=== PATIENT | male | born 1990 | race Caucasian/White ===

== ENCOUNTER 2017-08-23 17:33 | Emergency (ER) | payer OTHER, MEDICAID, SELFPAY ==
[2017-08-23 17:34] VITALS: BP 130/71; PULSE 83; RESP 14; TEMP 36.7; O2SAT 97; BMI 20.6
--- NOTE | 2017-08-23 19:07 | ED.VISSUMM ---
- ER Visit Summary Date of Service: 08/23/17 Chief Complaint: Pain and swelling right index finger secondary to injury that occurred on August 17 at work History of Present Illness: The patient is a 27 M is right-handed. Presents with injury to the right index finger. This occurred at work. On the radial side over the middle phalanx. He complains of pain. He denies paresthesia, anesthesia or motor weakness. He denies fever, chills night sweats. He denies decreased range of motion. Physical Examination: Vital signs are remarkable elevated blood pressure 130/71. Patient has small subcutaneous abscess over the middle phalanx radial side of the right index finger. There is no lymphangitis. There is no cellulitis. There is no epitrochlear lymphadenopathy. There is no pain to palpation the extensor indices tendon. Test Results: None Emergency Department Course and Treatment: Patient was informed he needs an incision and drainage of the abscess. The digit was anesthetized 1% lidocaine by digital block. The area was cleansed. An incision was made with a 15 blade. Small purulent material was expressed. Blunt dissection was undertaken and cavity was irrigated. Treatment Plan: This is a small simple obtains abscess and patient is an immune suppressed or diabetic and there is no's cellulitis antibiotics are not indicated per the literature Disposition: Follow-up in 2 days at [facility] Impression: Subcutaneous abscess right index finger secondary to laceration This note was generated with [employer] dictation software. It may contain incorrect words, spelling, and punctuation that were not noted in review of the chart prior to signing ED Disposition - Plan for ED Patient: Disposition: Home or Assisted Living Chief Complaint: Wound Instructions: ED Abscess IandD Referrals: Care Physician,No Primary [Primary Care Provider] - [facility] [GROUP OF PHYSICIANS] - 2 Days for wound check
--- NOTE | 2017-08-23 19:10 | ED.DCSUM_ITS ---
- ER Visit Summary Date of Service: 08/23/17 Chief Complaint: Pain and swelling right index finger secondary to injury that occurred on August 17 at work History of Present Illness: The patient is a 27 M is right-handed. Presents with injury to the right index finger. This occurred at work. On the radial side over the middle phalanx. He complains of pain. He denies paresthesia, anesthesia or motor weakness. He denies fever, chills night sweats. He denies decreased range of motion. Physical Examination: Vital signs are remarkable elevated blood pressure 130/ 71. Patient has small subcutaneous abscess over the middle phalanx radial side of the right index finger. There is no lymphangitis. There is no cellulitis. There is no epitrochlear lymphadenopathy. There is no pain to palpation the extensor indices tendon. Test Results: None Emergency Department Course and Treatment: Patient was informed he needs an incision and drainage of the abscess. The digit was anesthetized 1% lidocaine by digital block. The area was cleansed. An incision was made with a 15 blade. Small purulent material was expressed. Blunt dissection was undertaken and cavity was irrigated. Treatment Plan: This is a small simple obtains abscess and patient is an immune suppressed or diabetic and there is no's cellulitis antibiotics are not indicated per the literature Disposition: Follow-up in 2 days at [facility] Impression: Subcutaneous abscess right index finger secondary to laceration This note was generated with [employer] dictation software. It may contain incorrect words, spelling, and punctuation that were not noted in review of the chart prior to signing ED Disposition - Plan for ED Patient: Disposition: Home or Assisted Living Chief Complaint: Wound Instructions: ED Abscess IandD Referrals: Care Physician,No Primary [Primary Care Provider] - [facility], [place] [GROUP OF PHYSICIANS] - 2 Days for wound check
[2017-08-23 19:37] VITALS: RESP 16
== END 2017-08-23 19:38 | disposition home or self-care (01) ==
PROVIDERS: Emergency Provider Emergency Medicine
DX: L02.511 Cutaneous abscess of right hand (principal); S61.210A Laceration without foreign body of right index finger without damage to nail, initial encounter; X58.XXXA Exposure to other specified factors, initial encounter; Y93.9 Activity, unspecified; Y92.9 Unspecified place or not applicable; Y99.0 Civilian activity done for income or pay; Z72.0 Tobacco use
CPT/HCPCS: 26010; 99283

== ENCOUNTER 2017-08-28 23:28 | Observation (INO) | payer MEDICAID, SELFPAY ==
[2017-08-28 23:29] VITALS: BP 134/81; PULSE 81; RESP 14; TEMP 36.6; O2SAT 98; BMI 21.5
--- NOTE | 2017-08-28 23:40 | RAD_ITS ---
STUDY: X-RAY - RIGHT HAND, ATTENTION SECOND FINGER REASON FOR EXAM: Male, 27 years old. Pain TECHNIQUE: 3 view(s) of the finger were obtained. COMPARISON: None. FINDINGS: Normal metacarpal head. Normal metacarpophalangeal joint. Normal proximal phalanx. Normal middle phalanx. Normal distal phalanx. Normal proximal interphalangeal joint. Normal distal interphalangeal joint. There is soft tissue swelling of the second digit. RAD/Finger(s) Min 2 Views IMPRESSION: There is NO acute bony abnormality. There is soft tissue swelling of the second digit. Electronically Signed: Rusty Dominguez MD at 0:50 EDT , Service support ,
[2017-08-28] MEDS: Ondansetron 4 MG/2 ML Vial IV (23:58)
[2017-08-29] VITALS (12 sets, daily range): BP systolic 98–124; BP diastolic 53–77; PULSE 46–63; RESP 15–18; TEMP 36.3–37.1; O2SAT 93–99; BMI 20.1
[2017-08-29 00:07] LABS: Absolute Lymphocyte Count 3.66 X10^3/ul (0.83-4.51); Absolute Neutrophil Count 3.5 X10^3/uL (2.0-7.7); Basophil# 0.08 X10^3/uL; Eosinophil# 0.22 X10^3/uL; Eosinophils% 2.7 % (0-5); Hematocrit 42.6 % (40-54); Hemoglobin 14.7 g/dl (13.0-16.5); Lymphocyte # 3.66 X10^3/ul (4.0); Mean Corp Hgb Conc 34.5 g/gl (32-36); Mean Corpuscular Hgb 31.7 pg (27.0-32.0); Mean Platelet Vol. 9.1 fl (6.2-12.0); Monocyte# 0.62 X10^3/uL; Monocyte% 7.6 % (0-10); Neutrophil # 3.54 X10^3/uL (2.7-7.7); Neutrophil % 43.6 % (47-70); POSITIVE COUNT NO; POSITIVE DIFFERENTIAL NO; POSITIVE MORPHOLOGY NO; Platelet Count 293 K/mm3 (150-450); RBC Distribution Width CV 12.3 % (11.6-14.6); RBC Distribution Width SD 40.7 fl (35.1-43.9); Red Blood Count 4.63 M/mm3 (4.6-6.2); White Blood Count 8.1 K/mm3 (4.4-11.0)
[2017-08-29 00:16] LABS: Anion Gap 5 (5-15); BUN 10 mg/dL (7-18); BUN/Creat Ratio 11.4 RATIO (10-20); Calcium,Total 8.7 mg/dL (8.5-10.1); Chloride 103 mmol/L (98-107); Creatinine, Serum 0.87 mg/dL (0.70-1.30); EST Glomerular Filtration Rate 110 mL/min (>60); Est Glom Filt Rate - Afr Amer 132 mL/min (>60); Estimated Creatinine Clearance 138.57 ml/min; Glucose 98 mg/dL (74-106); Potassium 3.8 mmol/L (3.5-5.1); Sodium Level 140 mmol/L (136-145)
--- NOTE | 2017-08-29 00:18 | ED.VISSUMM ---
- ER Visit Summary Date of Service: 08/29/17 Chief Complaint: Redness and swelling to right index finger] History of Present Illness: The patient is a 27 M [presents to the emergency department with complaint of redness and swelling to his right index finger at that has been present for over a week. Patient states that he was seen in the emergency department about 5 or 6 days ago and had an incision and drainage of an abscess to the finger. Patient states that initially he hurt his finger while at work he brushed it against a metal edge lacerating it. The wound subsequently got infected. Patient states that after his incision and drainage in the emergency department he was not started on antibiotics however he was told [facility]. Patient followed up several days later and was started on doxycycline for suspected worsening infection. Patient is scheduled to follow-up with water rights specialist in 5 days. Patient has pain with range of motion.] Physical Examination: [Right index finger-patient has soft tissue swelling over the dorsum of the middle phalanx. He has pain with flexion extension at the PIP and DIP. Patient has tenderness over the extensor tendon. Neurovascular intact distally.] No obvious fluctuance noted over the wound. Test Results: [X-rays of the right index finger interpreted by myself as no acute fractures and no foreign bodies noted. No evidence for osteomyelitis.] CBC with differential obtained showed a normal white blood cell count. Chemistries were unremarkable. Emergency Department Course and Treatment: [Patient was started on clindamycin IV.] Treatment Plan: [Admit for IV antibiotics and evaluation by orthopedics.] Disposition: [Admit] Impression: [Right index finger abscess/cellulitis-failed outpatient therapy] This note was generated with [employer] dictation software. It may contain incorrect words, spelling, and punctuation that were not noted in review of the chart prior to signing ED Disposition - Plan for ED Patient: Chief Complaint: Abscess Referrals: Care Physician,No Primary [Primary Care Provider] -
--- NOTE | 2017-08-29 00:21 | ED.DCSUM_ITS ---
- ER Visit Summary Date of Service: 08/29/17 Chief Complaint: Redness and swelling to right index finger] History of Present Illness: The patient is a 27 M [presents to the emergency department with complaint of redness and swelling to his right index finger at that has been present for over a week. Patient states that he was seen in the emergency department about 5 or 6 days ago and had an incision and drainage of an abscess to the finger. Patient states that initially he hurt his finger while at work he brushed it against a metal edge lacerating it. The wound subsequently got infected. Patient states that after his incision and drainage in the emergency department he was not started on antibiotics however he was told [facility]. Patient followed up several days later and was started on doxycycline for suspected worsening infection. Patient is scheduled to follow-up with construction specialist in 5 days. Patient has pain with range of motion.] Physical Examination: [Right index finger-patient has soft tissue swelling over the dorsum of the middle phalanx. He has pain with flexion extension at the PIP and DIP. Patient has tenderness over the extensor tendon. Neurovascular intact distally.] No obvious fluctuance noted over the wound. Test Results: [X-rays of the right index finger interpreted by myself as no acute fractures and no foreign bodies noted. No evidence for osteomyelitis.] CBC with differential obtained showed a normal white blood cell count. Chemistries were unremarkable. Emergency Department Course and Treatment: [Patient was started on clindamycin IV.] Treatment Plan: [Admit for IV antibiotics and evaluation by orthopedics.] Disposition: [Admit] Impression: [Right index finger abscess/cellulitis-failed outpatient therapy] This note was generated with [employer] dictation software. It may contain incorrect words, spelling, and punctuation that were not noted in review of the chart prior to signing ED Disposition - Plan for ED Patient: Chief Complaint: Abscess Referrals: Care Physician,No Primary [Primary Care Provider] -
[2017-08-29] MEDS: Ketorolac 30 MG/ML Syringe IV ×4 (01:12→21:34)
[2017-08-29] MEDS: HYDROmorphone 1 MG/ML Syringe IV ×7 (01:12→23:51)
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
[2017-08-29] MEDS: 0.9% NaCl Peripheral Flush Adult/Peds IV ×6 (02:58→21:34)
[2017-08-29] MEDS: 0.9% Normal Saline 1,000 ML 125 ML IV ×4 (05:13→21:37)
--- NOTE | 2017-08-29 06:05 | NURSING ---
PAGED DR ZUNIGA THIS AM TO INFORM HIM OF A CONSULT FOR HIM FOR THIS PATIENT
[2017-08-29 06:49] LABS: Absolute Lymphocyte Count 3.43 X10^3/ul (0.83-4.51); Absolute Neutrophil Count 2.6 X10^3/uL (2.0-7.7); Basophil# 0.06 X10^3/uL; Basophil% 0.9 % (0-1); Eosinophil# 0.25 X10^3/uL; Eosinophils% 3.6 % (0-5); Hematocrit 41.1 % (40-54); Hemoglobin 13.7 g/dl (13.0-16.5); Lymphocyte # 3.43 X10^3/ul (4.0); Lymphocyte % 49.4 % (19-41); Mean Corp Hgb Conc 33.3 g/gl (32-36); Mean Corpuscular Hgb 30.9 pg (27.0-32.0); Mean Corpuscular Volume 92.8 fL (80-94); Mean Platelet Vol. 9.3 fl (6.2-12.0); Monocyte# 0.59 X10^3/uL; Monocyte% 8.5 % (0-10); Neutrophil # 2.61 X10^3/uL (2.7-7.7); Neutrophil % 37.5 % (47-70); POSITIVE COUNT NO; POSITIVE DIFFERENTIAL NO; POSITIVE MORPHOLOGY NO; Platelet Count 239 K/mm3 (150-450); RBC Distribution Width CV 12.4 % (11.6-14.6); RBC Distribution Width SD 41.3 fl (35.1-43.9); Red Blood Count 4.43 M/mm3 (4.6-6.2)
[2017-08-29 07:10] LABS: Anion Gap 5 (5-15); BUN 11 mg/dL (7-18); Calcium,Total 8.2 mg/dL (8.5-10.1); Chloride 103 mmol/L (98-107); Creatinine, Serum 0.73 mg/dL (0.70-1.30); EST Glomerular Filtration Rate 134 mL/min (>60); Est Glom Filt Rate - Afr Amer 162 mL/min (>60); Estimated Creatinine Clearance 158.18 ml/min; Glucose 93 mg/dL (74-106); Potassium 4.2 mmol/L (3.5-5.1); Sodium Level 138 mmol/L (136-145)
--- NOTE | 2017-08-29 09:09 | CASEMGMT ---
See RN CM Assessment Link. DC Plan home. If IV antibiotics are needed, CM to assist with dc planning. Pt given list of PCP's that take [facility] insurance. Referral made for f/u @ [facility], [place] , for f/u on last ER visit. Pt can f/u here or with Dr. Dewitt if he orders appt on dc. Anny CLARKN RN ACM
--- NOTE | 2017-08-29 10:54 | PCM.CONS.B ---
- Consult Date of Consult: 08/29/17 - Reason for Consult 27-year-old [id number] male with a zone to dorsal abscess formation over the extensor mechanism. Patient had brushed against the finger about a week ago and apparently had undergone a I&D in the emergency room without application of any antibiotics. Patient showed up to the now clinic was started on doxycycline. Patient wound dehiscence closed and he had continued pain and came to the emergency room. They have subsequently started him either on the suprasellar vancomycin this time. Patient was made n.p.o. at midnight for possible I&D. Patient is in no acute distress at this point time. He points over to the right index finger and the dorsum of the hand. Patient is a history of hepatitis C. Objective: Patient is otherwise alert and oriented ?3 in no acute distress. Appropriate eye contact and affect. Intact in the seat from the C5-T2 distributions bilaterally has +2 pulses. He has heart regular S1-S2 lungs clear ulceration bilaterally abdomen soft nontender nondistended no gross paraspinal megaly. His left hand shows no adenopathy full range of motion no signs of any infection about the dorsal or volar aspects of the hand. His right upper extremity again shows no streaking erythema he has no axillary adenopathy. Patient has negative can able signs across the flexor aspect of the finger. He has some localized erythema and probable abscess formation over the dorsal zone 2 of the index finger. Patient is able to gently flex and extend however across the PIPJ and DIPJ. Extensor mechanism still intact. Lab values reviewed. Patient has no white count. He has no signs of the left hip. No signs of any fevers. X-rays: Evaluated-no loose bodies. No gas. No signs of fracture. Assessment: Right index finger zone 2 dorsal abscess. Plan: This point time patient was counseled consented for right finger incision and drainage. At that point time will perform deep cultures of the tissue. It would impact accordingly and will start wound care. Patient will continue on his current antibiotics as an empiric coverage. Hopefully will gain some bacterial identification over time. However with his multiple antibiotics it may be unlikely. Patient understands risks and benefits to include damage to nerves muscles arteries veins of DVT PE infection continued pain for repeat incision and drainage. This point time patient elects to proceed with intervention. We will go and get him counseled and consented and set up for intervention as soon as possible. Any major issues please contact me.
--- NOTE | 2017-08-29 11:35 | PCM.RX.CS ---
Consult Pharmacy has been consulted to manage selected antiobiotic: Vancomycin Type of Consult: New start Suspected Infection: Skin/Soft tissue Prior Doses of Antibiotics Received/Current Regimen: Medications Vancomycin HCl 1,750 mg/ (Sodium Chloride) 535 mls @ 260 mls/hr IV X1 ONE Stop: 08/29/17 04:48 Last Admin: 08/29/17 02:54 Dose: 260 mls/hr Labs: Sodium 138 mmol/L (136-145) 08/29/17 06:15 Potassium 4.2 mmol/L (3.5-5.1) 08/29/17 06:15 Chloride 103 mmol/L (98-107) 08/29/17 06:15 Carbon Dioxide 30.0 mmol/L (21.0-32.0) 08/29/17 06:15 Anion Gap 5 (5-15) 08/29/17 06:15 BUN 11 mg/dL (7-18) 08/29/17 06:15 Creatinine 0.73 mg/dL (0.70-1.30) 08/29/17 06:15 Est GFR (MDRD) Af Amer 162 mL/min (>60) 08/29/17 06:15 Est GFR (MDRD) Non-Af 134 mL/min (>60) 08/29/17 06:15 BUN/Creatinine Ratio 15.0 RATIO (10-20) 08/29/17 06:15 Glucose 93 mg/dL (74-106) 08/29/17 06:15 Weight used for dosin kg Estimated Creatinine Clearance: >100 mL/mn Goal Trough: 10-15 mcg/mL Pharmacy Plan for Drug Dosing: Patient initially received vancomycin 1750mg IV x1, recommend to continue 1000mg IV q8h. Trough Thursday afternoon. Pharmacy Service will continue to monitor and adjust dosing as required. Follow-Up Labs: Trough Vancomycin Labs to be done on [date and time ordered]: 08/30/17 @ 1400
--- NOTE | 2017-08-29 11:54 | NURSING ---
REPORT CALLED TO TRISH IN OR. PT OFF UNIT VIA BED FOR SURGERY
--- NOTE | 2017-08-29 12:00 | PCM.IMDPSTOP ---
Immediate Post-Op Note Date of Procedure: 08/29/17 Primary Surgeon/Physician: Emre Dewitt DO trapeze performer: none Pre-Operative Diagnosis: right index finger abscess Post-Operative Diagnosis: same as above Surgery/Procedure Performed:: right index finger incision and drainage--deep to fascia Description of Surgical Findings:: see dictation Estimated Blood Loss: 5 Specimen's removed: cultures ASA Class: ASA1 Normal Healthy Patient - Admit VTE Documentation VTE Present on Admission: No VTE Mechan Device Prophylaxis: SCD's, Knee High ALISHA Hose VTE Pharm Prophylaxis ordered?: No
--- NOTE | 2017-08-29 12:03 | OP.PCM_ITS ---
Report of Operation Date of Procedure: 08/29/17 Pre-Operative Diagnosis: right index finger abscess Post-Operative Diagnosis: same as above Surgery/Procedure Performed:: right index finger incision and drainage--deep to fascia Description of Surgical Findings:: 27-year-old male with right index finger zone 2 dorsal abscess. Patient had previous undergone a small incision and drainage in the emergency room and subsequently went to the critical access hospital where he was placed on antibiotics. The patient continued abscess formation. Subsequent return to the emergency room yesterday admitted by the hospitalist team. I was consulted for the wound. Discussed with the patient my recommendation was for an incision and drainage and packing of the wound and deep cultures which not had been performed at this time. Patient was subsequently consented for the aforementioned procedure. He is met in the holding area where the right upper extremity was marked and identified by the orthopedic surgeon. Patient was taken the operating room in satisfactory condition with somewhat to place to identify patient up procedure and limb. Patient had received preoperative vancomycin and to penicillin. He was subsequent prepped and draped in the usual fashion. Patient received light conscious sedation and then underwent a standard digital block using combination of Marcaine and lidocaine solution mixed without epinephrine. Patient reached appropriate anesthesia to the finger and subsequent had a longitudinal incision made over the previous incision site. Grossly upon entry the patient had a large return of purulent discharge. Deep cultures were taken to include Gram stain aerobic and anaerobic cultures. That will be sent down accordingly. At that point time using blunt dissection the purulence was removed all the way down to the fascia of the extensor mechanism. It was not disrupted. At that point time the wound was gently curetted along the extensor mechanism fascia and gently across the subcu tissue being cognizant not to take down too much fat to expect blood supply. At that point time he was copious irrigated with 250 cc of normal saline solution. I then packed the wound with a small amount of 1/4 inch povidone iodine packing gauze. He was then dressed with a compressive wrap gently. He was then returned to recovery room in satisfactory condition. We had no drains or complications. Implants only included the packing gauze. We did take deep cultures. Patient be admitted back to the floor for 24 hours of IV antibiotics and conversion to an oral medication. I think the patient could be discharged home tomorrow. Any major issues please contact me. I will start warm water soaks with the patient tomorrow and the patient will follow-up with me either on Thursday or of next week for a wound check. Any issues please contact me. gamewell operator: none Specimen's removed: cultures Estimated Blood Loss (mL): 5 Grafts/Implants Used: none - Complications none - Admit VTE Documentation VTE Present on Admission: No VTE Mechan Device Prophylaxis: SCD's, Knee High ALISHA Hose VTE Pharm Prophylaxis ordered?: No
[2017-08-29] MEDS: Bupivacaine Mpf 0.5% 30 ML VIAL (12:15)
--- NOTE | 2017-08-29 13:39 | PCA ---
pt off floor
--- NOTE | 2017-08-29 14:08 | PCM.PROGNOTE ---
Patient Problems: Active and Suspected Problems (Last Updated 08/24/17 @ 15:00 by Marisa Beckford) Cellulitis of right index finger (Acute) Subjective: Patient is a 27-year-old male with a past medical history of hepatitis C, nicotine dependence and recent cellulitis of his right index finger who presented to the Ed at [facility] on 08/29 c/o swelling, increased pain, redness despite I&D performed 1 week ago and Doxycycline. Vital signs at presentation to the emergency room were temperature 97.9, pulse rate 81, blood pressure 134/81, respiratory rate 14 and he was 98% saturated on room air. White blood cell count was normal at 8.1 and the differential is unremarkable. Plain x-ray of the right index finger shows swelling of the middle phalanx of the right index finger. He was admitted to the hospital and started on intravenous vancomycin. Consult was ordered with Dr. Emre Dewitt. He was taken to the OR and had a digital block for anesthesia. Grossly upon entry into the wound there was a large return of purulent discharge. Deep cultures were taken and sent for Gram stain, aerobic and anaerobic cultures. Dissection was carried out down to the fascia of the extensor mechanism. The wound was irrigated with copious amounts of normal saline solution. Wound was packed open with a small amount of povidone iodine packing gauze. Were no drains placed. Dr. Dewitt feels the patient can likely be discharged home in [address] Dewitt will follow up with him in the office next week. Afebrile since admission. Vital signs are stable. - Physical Exam General: Alert, Oriented x3, Cooperative, No apparent distress HEENT: PERRLA Oral: Moist Mucosa, No Gingival or Mucosal Lesions/ Ulcerations Lungs: Clear to auscultation Cardiovascular: Regular rate, Regular Rhythm, No murmurs, No Gallop Abdomen: Bowel Sounds Present, Soft, Non Tender, Non-Distended Extremities: No edema, - - The R index finger is bandaged.....no redness or swelling above the wrist. Skin: No rashes, No breakdown, Ulcer/ Wound - R index finger, S/P I&D today......will not disrupt the bandage Neurological: Cranial nerves II-XII grossly intact, Neuro grossly intact Psych/Mental Status: Normal Affect, Appropriate Vital Signs Temp Pulse Resp BP Pulse Ox 97.5 F L 63 16 98/53 L 99 08/29/17 13:54 08/29/17 13:54 08/29/17 13:54 08/29/17 13:54 08/29/17 13:54 Oxygen Delivery Method Room Air Weight: 165 lb 2.02 oz Body Mass Index (BMI) 20.0 Intake and Output for Last 24 Hours 08/27/17 08/28/17 08/29/17 23:59 23:59 23:59 Intake Total 1147 / 1147 Balance 1147 / 1147 Laboratory Tests Past 24 Hrs 08/29/17 08/29/17 06:15 06:15 WBC 7.0 RBC 4.43 L Hgb 13.7 Hct 41.1 MCV 92.8 MCH 30.9 MCHC 33.3 RDW 12.4 RDW Differential 41.3 Plt Count 239 MPV 9.3 Immature Gran % (Auto) 0.100 Neut % (Auto) 37.5 L Lymph % (Auto) 49.4 H [place] % (Auto) 8.5 Eos % (Auto) 3.6 Baso % (Auto) 0.9 Absolute Neuts (auto) 2.6 Absolute Lymphs (auto) 3.43 Total Counted Not Reportable Sodium 138 Potassium 4.2 Chloride 103 Carbon Dioxide 30.0 Anion Gap 5 BUN 11 Creatinine 0.73 Estim Creat Clear Calc 158.18 Est GFR (MDRD) Af Amer 162 Est GFR (MDRD) Non-Af 134 BUN/Creatinine Ratio 15.0 Glucose 93 Calcium 8.2 L Medical Necessity - Tobacco Use Smoking Status: Current every day smoker Tobacco Use: Cigarettes Assessment/Plan Active and Suspected Problems (Last Updated 08/24/17 @ 15:00 by Marisa Beckford) Cellulitis of right index finger (Acute) Impressions 1. cellulitis and abscess R index finger - S/P I&D by Dr. Dewitt. No PCR done on the DC. Was on Doxycycline prior to admission without improvement 2. hx of hep C. Probable DC tomorrow Will follow up with Dr. Dewitt Thursday GM stain with GM + cocci
--- NOTE | 2017-08-29 14:23 | PN_ITS ---
Patient Problems: Active and Suspected Problems (Last Updated 08/24/17 @ 15:00 by Marisa Beckford) Cellulitis of right index finger (Acute) Subjective: Patient is a 27-year-old male with a past medical history of hepatitis C, nicotine dependence and recent cellulitis of his right index finger who presented to the Ed at [facility] on 08/29 c/o swelling, increased pain, redness despite I&D performed 1 week ago and Doxycycline. Vital signs at presentation to the emergency room were temperature 97.9, pulse rate 81, blood pressure 134/ 81, respiratory rate 14 and he was 98% saturated on room air. White blood cell count was normal at 8.1 and the differential is unremarkable. Plain x-ray of the right index finger shows swelling of the middle phalanx of the right index finger. He was admitted to the hospital and started on intravenous vancomycin. Consult was ordered with Dr. Emre Dewitt. He was taken to the OR and had a digital block for anesthesia. Grossly upon entry into the wound there was a large return of purulent discharge. Deep cultures were taken and sent for Gram stain, aerobic and anaerobic cultures. Dissection was carried out down to the fascia of the extensor mechanism. The wound was irrigated with copious amounts of normal saline solution. Wound was packed open with a small amount of povidone iodine packing gauze. Were no drains placed. Dr. Dewitt feels the patient can likely be discharged home in [address] Dewitt will follow up with him in the office next week. Afebrile since admission. Vital signs are stable. - Physical Exam General: Alert, Oriented x3, Cooperative, No apparent distress HEENT: PERRLA Oral: Moist Mucosa, No Gingival or Mucosal Lesions/ Ulcerations Lungs: Clear to auscultation Cardiovascular: Regular rate, Regular Rhythm, No murmurs, No Gallop Abdomen: Bowel Sounds Present, Soft, Non Tender, Non-Distended Extremities: No edema, - - The R index finger is bandaged.....no redness or swelling above the wrist. Skin: No rashes, No breakdown, Ulcer/ Wound - R index finger, S/P I&D today......will not disrupt the bandage Neurological: Cranial nerves II-XII grossly intact, Neuro grossly intact Psych/Mental Status: Normal Affect, Appropriate Vital Signs Temp Pulse Resp BP Pulse Ox 97.5 F L 63 16 98/53 L 99 08/29/17 13:54 08/29/17 13:54 08/29/17 13:54 08/29/17 13:54 08/29/17 13:54 Oxygen Delivery Method Room Air Weight: 165 lb 2.02 oz Body Mass Index (BMI) 20.0 Intake and Output for Last 24 Hours 08/27/17 08/28/17 08/29/17 23:59 23:59 23:59 Intake Total 1147 / 1147 Balance 1147 / 1147 Laboratory Tests Past 24 Hrs 08/29/17 08/29/17 06:15 06:15 WBC 7.0 RBC 4.43 L Hgb 13.7 Hct 41.1 MCV 92.8 MCH 30.9 MCHC 33.3 RDW 12.4 RDW Differential 41.3 Plt Count 239 MPV 9.3 Immature Gran % (Auto) 0.100 Neut % (Auto) 37.5 L Lymph % (Auto) 49.4 H [place] % (Auto) 8.5 Eos % (Auto) 3.6 Baso % (Auto) 0.9 Absolute Neuts (auto) 2.6 Absolute Lymphs (auto) 3.43 Total Counted Not Reportable Sodium 138 Potassium 4.2 Chloride 103 Carbon Dioxide 30.0 Anion Gap 5 BUN 11 Creatinine 0.73 Estim Creat Clear Calc 158.18 Est GFR (MDRD) Af Amer 162 Est GFR (MDRD) Non-Af 134 BUN/Creatinine Ratio 15.0 Glucose 93 Calcium 8.2 L Medical Necessity - Tobacco Use Smoking Status: Current every day smoker Tobacco Use: Cigarettes Assessment/Plan Active and Suspected Problems (Last Updated 08/24/17 @ 15:00 by Marisa Beckford) Cellulitis of right index finger (Acute) Impressions 1. cellulitis and abscess R index finger - S/P I&D by Dr. Dewitt. No PCR done on the DC. Was on Doxycycline prior to admission without improvement 2. hx of hep C. Probable DC tomorrow Will follow up with Dr. Dewitt Thursday GM stain with GM + cocci
[2017-08-29] MEDS: HYDROcodone Bitartrate/Apap 5/325 Tablet PO ×2 (15:13→21:33)
[2017-08-29] MEDS: Famotidine 20 MG Tablet PO (21:36)
[2017-08-29] MEDS: Ondansetron 4 MG/2 ML Vial IV (23:51)
[2017-08-30] MEDS: HYDROmorphone 1 MG/ML Syringe IV ×3 (03:30→09:34)
[2017-08-30] MEDS: HYDROcodone Bitartrate/Apap 5/325 Tablet PO ×2 (03:33→10:24)
[2017-08-30 03:36] VITALS: BP 109/62; PULSE 50; RESP 14; TEMP 36.6; O2SAT 97
[2017-08-30] MEDS: 0.9% Normal Saline 1,000 ML 125 ML IV (05:53)
[2017-08-30] MEDS: Magnesium Hydroxide 30 ML UDC PO (06:31)
[2017-08-30 07:47] VITALS: O2SAT 95
--- NOTE | 2017-08-30 08:22 | PCM.PN.ORT ---
Patient Problems: Active and Suspected Problems (Last Updated 08/24/17 @ 15:00 by Marisa Beckford) Cellulitis of right index finger (Acute) Subjective: Postop day 1 status post right index finger incision and drainage for abscess zone 2 dorsal. Patient doing well at this time. Finger is sore as expected. Patient's cultures did grow out some gram-positive cocci at this time. Patient is otherwise remained afebrile. Anticipate discharge home today with outpatient wound care as needed. Patient states that he was supposed to see a critical care clinical nurse specialist I am not really sure what that means. - Physical Exam General: Alert, Oriented x3, Cooperative, No apparent distress Musculoskeletal: - - Packing pulled serous drainage as expected. Extensor mechanism and flexor mechanism maintained. No expanding erythema. Wound cultures check. Lab values reviewed. Vital signs remained stable. Vital Signs Temp Pulse Resp BP Pulse Ox 97.8 F 50 L 14 109/62 95 08/30/17 03:36 08/30/17 03:36 08/30/17 03:36 08/30/17 03:36 08/30/17 07:47 Oxygen Delivery Method Room Air Weight: 165 lb 2.02 oz Body Mass Index (BMI) 20.0 Intake and Output for Last 24 Hours 08/28/17 08/29/17 08/30/17 23:59 23:59 23:59 Intake Total 1147 / 1147 2502 / 2502 Balance 1147 / 1147 2502 / 2502 Microbiology Past 72 Hours 08/29/17 12:41 Gram Stain - Final Wound Abcess - Aerobic & Anaerobic Swabs Medical Necessity - Tobacco Use Smoking Status: Current every day smoker Tobacco Use: Cigarettes Assessment/Plan Active and Suspected Problems (Last Updated 08/24/17 @ 15:00 by Marisa Beckford) Cellulitis of right index finger (Acute) Assessment: Right index finger abscess. Cultures pending. Plan: At this point time I will defer to the hospitalist team for recommended outpatient oral medication. Patient however can start warm water soaks today using either a 50-50 solution of water and hydrogen peroxide. Otherwise a small amount of dreft if available. Patient has been advised to start the gentle soaks and compression to push out any further fluid. The wound will heal by secondary intention. Replace packing very lightly simply act as a wick. Patient will follow with me on Wednesday for a wound check. Any issues please contact me.
--- NOTE | 2017-08-30 08:27 | PCM.DC.ORTHO ---
Discharge Activity: Return to Normal Activity, May Shower May shower in (days): 1 May resume sexual activity in: No Restrictions Additional Activity Instructions:: Activity as tolerated. Keep hand covered. Wash hands frequently if patient were developed MRSA. Call your doctor if your incision/area has: Continuous Slow Oozing, Sudden Increased Bleeding, Increased Pain/ Swelling, Increased Redness, Foul Smelling Discharge, Swelling at the incision site Call your doctor if you observe: Fever of 101 or Higher, Coldness, Increased Pain, Numbness or Tingling, Change in Color, Calf discomfort Change Dressing in (Days):: 1 Remove Dressing in (days):: 1 Cleanse incision/area with: Soap & Water Additional Dressing/Incision Instructions:: Warm water soaks twice daily. Patient is to milk the wound to remove any excess fluid. Replace packing ?2 days only. Packing material is only used as a wick. Do not over pack wound to prevent healing or pocket formation. Allergies/Adverse Reactions: Allergies codeine Allergy (Verified 08/28/17 23:29) Anaphylaxis Penicillins [PCN] Allergy (Verified 08/28/17 23:29) Hives tramadol Allergy (Verified 08/28/17 23:29) Hives Medications to take at Discharge doxycycline hyclate 100 mg capsule 100 mg PO BID 10 Days #20 cap 08/24/17 Primary Care Physician: Care Physician,No Primary [Primary Care Provider] - Please Follow Up With: Emre Dewitt DO When: call [facility] for appt for thursday Proposed Discharge Date: 08/30/17
[2017-08-30 08:49] VITALS: BP 125/65; PULSE 56; RESP 16; TEMP 36.1; O2SAT 98
[2017-08-30] MEDS: Famotidine 20 MG Tablet PO (09:36)
--- NOTE | 2017-08-30 09:53 | PCM.DC ---
- Discharge Diagnoses Current Active Problems: Current Active and Chronic Problems (Last Updated 08/24/17 @ 15:00 by Marisa Beckford) Cellulitis of right index finger (Acute) Tobacco use (Chronic) Hepatitis C (Chronic) You will use the following diet at home:: No restrictions Your food should be the consistency of: Regular Your liquids should be the consistency of: Regular/Thin Discharge Activity: Return to Normal Activity, May not drive while taking narcotic pain medications., May Shower May shower in (days): 1 May resume sexual activity in: No Restrictions Additional Activity Instructions:: Activity as tolerated. Keep hand covered. Wash hands frequently if patient were developed MRSA. Call your doctor if your incision/area has: Continuous Slow Oozing, Sudden Increased Bleeding, Increased Pain/ Swelling, Increased Redness, Foul Smelling Discharge, Swelling at the incision site Call your doctor if you observe: Fever of 101 or Higher, Coldness, Increased Pain, Numbness or Tingling, Change in Color, Calf discomfort Change Dressing in (Days):: 1 Remove Dressing in (days):: 1 Cleanse incision/area with: Soap & Water Additional Dressing/Incision Instructions:: Warm water soaks twice daily. Patient is to milk the wound to remove any excess fluid. Replace packing ?2 days only. Packing material is only used as a wick. Do not over pack wound to prevent healing or pocket formation. Allergies/Adverse Reactions: Allergies codeine Allergy (Verified 08/28/17 23:29) Anaphylaxis Penicillins [PCN] Allergy (Verified 08/28/17 23:29) Hives tramadol Allergy (Verified 08/28/17 23:29) Hives Medications to take at Discharge Hydrocodone/Acetaminophen [Vicodin Es 7.5-300 mg Tablet] 1 ea PO Q4H PRN PRN 7 Days #12 tab 08/30/17 Smz/Tmp Ds [Bactrim Ds] 2 tab PO BID #24 tab 08/30/17 The following prescriptions were given: Hydrocodone/Acetaminophen [Vicodin Es 7.5-300 mg Tablet] 1 ea PO Q4H PRN PRN 7 Days #12 tab PRN Reason: Pain Smz/Tmp Ds [Bactrim Ds] 2 tab PO BID #24 tab Primary Care Physician: Care Physician,No Primary [Primary Care Provider] - Please Follow Up With: Emre Dewitt DO When: call [facility] for appt for thursday Proposed Discharge Date: 08/30/17
--- NOTE | 2017-08-30 10:02 | PCM.DC.SUM ---
Discharge Date and Diagnosis - Problem List Patient Problems: Active and Suspected Problems (Last Updated 08/24/17 @ 15:00 by Marisa Beckford) Cellulitis of right index finger (Acute) Date of Admission: 08/29/17 Date of Discharge: 08/30/17 - Primary Discharge Diagnosis Active and Suspected Problems (Last Updated 08/24/17 @ 15:00 by Marisa Beckford) Cellulitis and abscess of right index finger (Acute) - Secondary Discharge Diagnosis Chronic Problems (Last Updated 08/24/17 @ 15:00 by Marisa Beckford) Tobacco dependence (Chronic) Hepatitis C (Chronic) Drug overdose (Chronic) Agitation (Chronic) Hospital Course and Treatment Imaging Results: Clinical Impression(s) from Imaging Studies Finger X-Ray 08/28/17 23:40 IMPRESSION: There is NO acute bony abnormality. There is soft tissue swelling of the second digit. Electronically Signed: Rusty Dominguez MD at 0:50 EDT , Service support , Laboratory Tests 08/28/17 08/28/17 08/29/17 23:51 23:51 06:15 WBC 8.1 7.0 RBC 4.63 4.43 L Hgb 14.7 13.7 Hct 42.6 41.1 MCV 92.0 92.8 MCH 31.7 30.9 MCHC 34.5 33.3 RDW 12.3 12.4 RDW Differential 40.7 41.3 Plt Count 293 239 MPV 9.1 9.3 Immature Gran % (Auto) 0.100 0.100 Neut % (Auto) 43.6 L 37.5 L Lymph % (Auto) 45.0 H 49.4 H [place] % (Auto) 7.6 8.5 Eos % (Auto) 2.7 3.6 Baso % (Auto) 1.0 0.9 Absolute Neuts (auto) 3.5 2.6 Absolute Lymphs (auto) 3.66 3.43 Total Counted Not Reportable Not Reportable Sodium 140 Potassium 3.8 Chloride 103 Carbon Dioxide 32.0 Anion Gap 5 BUN 10 Creatinine 0.87 Estim Creat Clear Calc 138.57 Est GFR (MDRD) Af Amer 132 Est GFR (MDRD) Non-Af 110 BUN/Creatinine Ratio 11.4 Glucose 98 Calcium 8.7 08/29/17 06:15 WBC RBC Hgb Hct MCV MCH MCHC RDW RDW Differential Plt Count MPV Immature Gran % (Auto) Neut % (Auto) Lymph % (Auto) [place] % (Auto) Eos % (Auto) Baso % (Auto) Absolute Neuts (auto) Absolute Lymphs (auto) Total Counted Sodium 138 Potassium 4.2 Chloride 103 Carbon Dioxide 30.0 Anion Gap 5 BUN 11 Creatinine 0.73 Estim Creat Clear Calc 158.18 Est GFR (MDRD) Af Amer 162 Est GFR (MDRD) Non-Af 134 BUN/Creatinine Ratio 15.0 Glucose 93 Calcium 8.2 L Microbiology 08/29/17 12:41 Wound Abcess - Aerobic & Anaerobic Swabs Gram Stain - Final Dr. Emre Dewitt[facility] orthopedics Operations: - - Right index finger incision and drainage-deep to fascia 08/29/[address] Emre Dewitt. Summary of Care Provided: Patient is a 27-year-old male with a past medical history of hepatitis C, nicotine dependence, drug OD and recent cellulitis of his right index finger who presented to the ED at [facility] on 08/29/17 c/o swelling, increased pain, redness despite I&D performed 08/23/17 in the ED and Doxycycline. Vital signs at presentation to the emergency room were temperature 97.9, pulse rate 81, blood pressure 134/81, respiratory rate 14 and he was 98% saturated on room air. White blood cell count was normal at 8.1 and the differential was unremarkable. Plain x-ray of the right index finger showed swelling of the middle phalanx of the right index finger. He was admitted to the hospital and started on intravenous vancomycin. Consult was ordered with Dr. Emre Dewitt. He was taken to the OR and had a digital block for anesthesia. Grossly upon entry into the wound there was a large return of purulent discharge. Deep cultures were taken and sent for Gram stain, aerobic and anaerobic cultures. Dissection was carried out down to the fascia of the extensor mechanism. The wound was irrigated with copious amounts of normal saline solution. It was packed open with a small amount of povidone iodine packing gauze. The GM stain of the DC from surgery had rare white blood cells and rare gram-positive cocci. PCR for SA was not sent. On 08/30 he was afebrile with stable VS. He was seen by Dr. Dewitt who changed the dressing and felt he was ready for DC. He was instructed on how to properly do the dressing changes for the next 2 days and he was given dressing supplies for the next 2 days. He will follow up with Dr. Dewitt in the office Thursday. He was discharged on Bactrim DS 2 tabs BID for 6 days. He was given a RX for Vicodin 7.5/300, #12, and instructed to take 1 PO every 4 hours as need for pain. He will elevate the RUE. This note was generated with [employer] dictation software. It may contain incorrect words, spelling, and punctuation that were not noted in checking the note before signing. Discharge Activity: Return to Normal Activity, May not drive while taking narcotic pain medications., May Shower May shower in (days): 1 May resume sexual activity in: No Restrictions Additional Activity Instructions:: Activity as tolerated. Keep hand covered. Wash hands frequently if patient were developed MRSA. Call your doctor if your incision/area has: Continuous Slow Oozing, Sudden Increased Bleeding, Increased Pain/ Swelling, Increased Redness, Foul Smelling Discharge, Swelling at the incision site Call your doctor if you observe: Fever of 101 or Higher, Coldness, Increased Pain, Numbness or Tingling, Change in Color, Calf discomfort Change Dressing in (Days):: 1 Remove Dressing in (days):: 1 Cleanse incision/area with: Soap & Water Additional Dressing/Incision Instructions:: Warm water soaks twice daily. Patient is to milk the wound to remove any excess fluid. Replace packing ?2 days only. Packing material is only used as a wick. Do not over pack wound to prevent healing or pocket formation. Home Medications: Medications to take at Discharge Hydrocodone/Acetaminophen [Vicodin Es 7.5-300 mg Tablet] 1 ea PO Q4H PRN PRN 7 Days #12 tab 08/30/17 Smz/Tmp Ds [Bactrim Ds] 2 tab PO BID #24 tab 08/30/17 Following Prescrptions Were Given to Patient: Hydrocodone/Acetaminophen [Vicodin Es 7.5-300 mg Tablet] 1 ea PO Q4H PRN PRN 7 Days #12 tab PRN Reason: Pain Smz/Tmp Ds [Bactrim Ds] 2 tab PO BID #24 tab Primary Care Physician: Care Physician,No Primary [Primary Care Provider] - Please Follow Up With: Emre Dewitt, When: call [facility] for appt for thursday Pending Tests Upon Discharge: wound culture taken at the time of I&D in the OR Disposition: Home Minutes spent on discharge:: 25 Patient Condition:: Stable Medical Necessity - Tobacco Use Smoking Status: Current every day smoker Tobacco Use: Cigarettes Meaningful Use Info Meaningful Use Diagnoses (Choose all that apply): None applicable Code Visit Inpatient E&M: 33664 Disch Hosp
--- NOTE | 2017-08-30 10:16 | DS.PCM_ITS ---
Discharge Date and Diagnosis - Problem List Patient Problems: Active and Suspected Problems (Last Updated 08/24/17 @ 15:00 by Marisa Beckford) Cellulitis of right index finger (Acute) Date of Admission: 08/29/17 Date of Discharge: 08/30/17 - Primary Discharge Diagnosis Active and Suspected Problems (Last Updated 08/24/17 @ 15:00 by Marisa Beckford) Cellulitis and abscess of right index finger (Acute) - Secondary Discharge Diagnosis Chronic Problems (Last Updated 08/24/17 @ 15:00 by Marisa Beckford) Tobacco dependence (Chronic) Hepatitis C (Chronic) Drug overdose (Chronic) Agitation (Chronic) Hospital Course and Treatment Imaging Results: Clinical Impression(s) from Imaging Studies Finger X-Ray 08/28/17 23:40 IMPRESSION: There is NO acute bony abnormality. There is soft tissue swelling of the second digit. Electronically Signed: Rusty Dominguez MD at 0:50 EDT , Service support , Laboratory Tests 08/28/17 08/28/17 08/29/17 23:51 23:51 06:15 WBC 8.1 7.0 RBC 4.63 4.43 L Hgb 14.7 13.7 Hct 42.6 41.1 MCV 92.0 92.8 MCH 31.7 30.9 MCHC 34.5 33.3 RDW 12.3 12.4 RDW Differential 40.7 41.3 Plt Count 293 239 MPV 9.1 9.3 Immature Gran % (Auto) 0.100 0.100 Neut % (Auto) 43.6 L 37.5 L Lymph % (Auto) 45.0 H 49.4 H Grant % (Auto) 7.6 8.5 Eos % (Auto) 2.7 3.6 Baso % (Auto) 1.0 0.9 Absolute Neuts (auto) 3.5 2.6 Absolute Lymphs (auto) 3.66 3.43 Total Counted Not Reportable Not Reportable Sodium 140 Potassium 3.8 Chloride 103 Carbon Dioxide 32.0 Anion Gap 5 BUN 10 Creatinine 0.87 Estim Creat Clear Calc 138.57 Est GFR (MDRD) Af Amer 132 Est GFR (MDRD) Non-Af 110 BUN/Creatinine Ratio 11.4 Glucose 98 Calcium 8.7 08/29/17 06:15 WBC RBC Hgb Hct MCV MCH MCHC RDW RDW Differential Plt Count MPV Immature Gran % (Auto) Neut % (Auto) Lymph % (Auto) Grant % (Auto) Eos % (Auto) Baso % (Auto) Absolute Neuts (auto) Absolute Lymphs (auto) Total Counted Sodium 138 Potassium 4.2 Chloride 103 Carbon Dioxide 30.0 Anion Gap 5 BUN 11 Creatinine 0.73 Estim Creat Clear Calc 158.18 Est GFR (MDRD) Af Amer 162 Est GFR (MDRD) Non-Af 134 BUN/Creatinine Ratio 15.0 Glucose 93 Calcium 8.2 L Microbiology 08/29/17 12:41 Wound Abcess - Aerobic & Anaerobic Swabs Gram Stain - Final Dr. Emre Dewitt-[facility] orthopedics Operations: - - Right index finger incision and drainage-deep to fascia [address] Emre Dewitt. Summary of Care Provided: Patient is a 27-year-old male with a past medical history of hepatitis C, nicotine dependence, drug OD and recent cellulitis of his right index finger who presented to the ED at [facility] on 08/29/17 c/o swelling, increased pain, redness despite I&D performed 08/23/17 in the ED and Doxycycline. Vital signs at presentation to the emergency room were temperature 97.9, pulse rate 81, blood pressure 134/81, respiratory rate 14 and he was 98% saturated on room air. White blood cell count was normal at 8.1 and the differential was unremarkable. Plain x-ray of the right index finger showed swelling of the middle phalanx of the right index finger. He was admitted to the hospital and started on intravenous vancomycin. Consult was ordered with Dr. Emre Dewitt. He was taken to the OR and had a digital block for anesthesia. Grossly upon entry into the wound there was a large return of purulent discharge. Deep cultures were taken and sent for Gram stain, aerobic and anaerobic cultures. Dissection was carried out down to the fascia of the extensor mechanism. The wound was irrigated with copious amounts of normal saline solution. It was packed open with a small amount of povidone iodine packing gauze. The GM stain of the DC from surgery had rare white blood cells and rare gram-positive cocci. PCR for SA was not sent. On 08/30 he was afebrile with stable VS. He was seen by Dr. Dewitt who changed the dressing and felt he was ready for DC. He was instructed on how to properly do the dressing changes for the next 2 days and he was given dressing supplies for the next 2 days. He will follow up with Dr. Dewitt in the office Thursday. He was discharged on Bactrim DS 2 tabs BID for 6 days. He was given a RX for Vicodin 7.5/300, #12, and instructed to take 1 PO every 4 hours as need for pain. He will elevate the RUE. This note was generated with [employer] dictation software. It may contain incorrect words, spelling, and punctuation that were not noted in checking the note before signing. Discharge Activity: Return to Normal Activity, May not drive while taking narcotic pain medications., May Shower May shower in (days): 1 May resume sexual activity in: No Restrictions Additional Activity Instructions:: Activity as tolerated. Keep hand covered. Wash hands frequently if patient were developed MRSA. Call your doctor if your incision/area has: Continuous Slow Oozing, Sudden Increased Bleeding, Increased Pain/ Swelling, Increased Redness, Foul Smelling Discharge, Swelling at the incision site Call your doctor if you observe: Fever of 101 or Higher, Coldness, Increased Pain, Numbness or Tingling, Change in Color, Calf discomfort Change Dressing in (Days):: 1 Remove Dressing in (days):: 1 Cleanse incision/area with: Soap & Water Additional Dressing/Incision Instructions:: Warm water soaks twice daily. Patient is to milk the wound to remove any excess fluid. Replace packing ?2 days only. Packing material is only used as a wick. Do not over pack wound to prevent healing or pocket formation. Home Medications: Medications to take at Discharge Hydrocodone/Acetaminophen [Vicodin Es 7.5-300 mg Tablet] 1 ea PO Q4H PRN PRN 7 Days #12 tab 08/30/17 Smz/Tmp Ds [Bactrim Ds] 2 tab PO BID #24 tab 08/30/17 Following Prescrptions Were Given to Patient: Hydrocodone/Acetaminophen [Vicodin Es 7.5-300 mg Tablet] 1 ea PO Q4H PRN PRN 7 Days #12 tab PRN Reason: Pain Smz/Tmp Ds [Bactrim Ds] 2 tab PO BID #24 tab Primary Care Physician: Care Physician,No Primary [Primary Care Provider] - Please Follow Up With: Emre Dewitt, When: call [facility] for appt for thursday Pending Tests Upon Discharge: wound culture taken at the time of I&D in the OR Disposition: Home Minutes spent on discharge:: 25 Patient Condition:: Stable Medical Necessity - Tobacco Use Smoking Status: Current every day smoker Tobacco Use: Cigarettes Meaningful Use Info Meaningful Use Diagnoses (Choose all that apply): None applicable Code Visit Inpatient E&M: 32691 Disch Hosp
[2017-08-30 12:21] VITALS: BP 105/53; PULSE 63; RESP 16; TEMP 36.1; O2SAT 98
== END 2017-08-30 14:52 | disposition home or self-care (01) | DRG 269 ==
LOC: ED 23:43 → MS3 08-29 02:08
PROVIDERS: Orthopaedic Surgery; Admitting Provider Family Medicine; Emergency Provider Emergency Medicine; Visit Provider Internal Medicine
PROC: (CPT 26011; principal; 2017-08-29 11:30)
DX: L02.511 Cutaneous abscess of right hand (principal); B18.2 Chronic viral hepatitis C; F17.210 Nicotine dependence, cigarettes, uncomplicated; S61.210A Laceration without foreign body of right index finger without damage to nail, initial encounter; W26.8XXA Contact with other sharp object(s), not elsewhere classified, initial encounter; L03.011 Cellulitis of right finger
CPT/HCPCS: 00400; 26011; 36415; 73140; 80048; 80202; 85025; 87070; 87075; 87077; 87186; 87205; 99218; 99282; 99406; J7030; J7040; J7050; A4216; G0378; J2405

== ENCOUNTER 2017-12-23 16:53 | Emergency (ER) | payer MEDICAID, SELFPAY ==
[2017-12-23 16:53] VITALS: BP 107/80; PULSE 90; RESP 18; TEMP 36.9; O2SAT 98; BMI 19.5
--- NOTE | 2017-12-23 17:45 | RAD_ITS ---
STUDY: X-RAY - LEFT SHOULDER REASON FOR EXAM: Male, 27 years old. Pain TECHNIQUE: 4 view(s) of the shoulder. COMPARISON: 10/16/2014 FINDINGS: There is no evidence of fracture or dislocation. There are no significant degenerative changes. There are no radiodense foreign bodies. RAD/Shoulder min 2 Views IMPRESSION: Negative radiographs of the left shoulder. Electronically Signed: Andrés Mcguire, at 18:22 EDT Tel , Service support ,
--- NOTE | 2017-12-23 17:45 | RAD_ITS ---
STUDY: X-RAY - LEFT ELBOW REASON FOR EXAM: Male, 27 years old. Pain TECHNIQUE: 3 view(s) of the elbow. COMPARISON: None. FINDINGS: There is no evidence of fracture or dislocation. There are no significant degenerative changes. There are no radiodense foreign bodies. RAD/Elbow min 3 Views IMPRESSION: No fracture or dislocation. Electronically Signed: Andrés Mcguire, at 18:21 EDT Tel , Service support ,
--- NOTE | 2017-12-23 17:45 | RAD_ITS ---
STUDY: X-RAY - LEFT HAND REASON FOR EXAM: Male, 27 years old. Pain TECHNIQUE: 3 view(s) of the hand. COMPARISON: 08/30/2015 FINDINGS: There is a stable old, healed fracture of the fifth metacarpal bone. There is no evidence of acute fracture or dislocation. There are no significant degenerative changes. There are no radiodense foreign bodies. RAD/Hand Min 3 Views IMPRESSION: Stable old, healed fracture of the fifth metacarpal. No acute fracture or dislocation. Electronically Signed: Andrés Mcguire, at 18:25 EDT Tel , Service support ,
--- NOTE | 2017-12-23 18:41 | ED.DEP ---
ED Disposition - Plan for ED Patient: Chief Complaint: Upper Extremity Injury Instructions: ED Sprain Elbow Prescriptions: Naproxen [Naprosyn] 500 mg PO BID PRN #20 tablet Referrals: Care Physician,No Primary [Primary Care Provider] - Jazmín Oneill MD [STAFF PHYSICIAN] -
--- NOTE | 2017-12-23 18:45 | ED.VISSUMM ---
- ER Visit Summary Date of Service: 12/23/17 Chief Complaint: Left upper extremity pain History of Present Illness: The patient is a 27 M presenting with left upper extremity pain. Patient states that he cut the grass yesterday and has had pain in his left shoulder and elbow since that time. No direct trauma. He also complains of numbness to his fourth and fifth digit on the left hand. This has been ongoing for the past 1.5-2 weeks. Denies fever. Denies weakness. Denies other complaints. Physical Examination: Vitals are stable. Patient is afebrile. Alert no acute distress. HEENT exam is unremarkable. Neck is nontender Lungs are clear and equal bilaterally. Heart is regular rate and rhythm. Extremities left posterior shoulder tenderness, left elbow diffuse tenderness, no warmth or erythema. Paresthesia to left 4th and 5th finger. AFROM. Normal pulses and cap refill Skin is warm and dry. No focal neurologic deficit. Remainder of exam is unremarkable. Emergency Department Course and Treatment: X-ray left shoulder, elbow, hand show no acute process. Patient was given naproxen. He is advised to follow-up with his primary care physician. Advised return to ED if worsening complaints. Disposition: Discharge home Impression: Left shoulder and elbow strain, left ulnar radiculopathy This note was generated with [employer] dictation software. It may contain incorrect words, spelling, and punctuation that were not noted in review of the chart prior to signing ED Disposition - Plan for ED Patient: Chief Complaint: Upper Extremity Injury Instructions: ED Sprain Elbow Prescriptions: Naproxen [Naprosyn] 500 mg PO BID PRN #20 tablet Referrals: Jazmín Oneill MD [STAFF PHYSICIAN] - Care Physician,No Primary [Primary Care Provider] -
== END 2017-12-23 19:00 | disposition home or self-care (01) ==
PROVIDERS: Emergency Provider Emergency Medicine
DX: S43.402A Unspecified sprain of left shoulder joint, initial encounter (principal); S53.402A Unspecified sprain of left elbow, initial encounter; M54.10 Radiculopathy, site unspecified; X58.XXXA Exposure to other specified factors, initial encounter; Y93.9 Activity, unspecified; Y92.9 Unspecified place or not applicable; Z86.19 Personal history of other infectious and parasitic diseases; Z72.0 Tobacco use
CPT/HCPCS: 73030; 73080; 73130; 99282

== ENCOUNTER 2017-12-29 12:12 | Emergency (ER) | payer MEDICAID, SELFPAY ==
[2017-12-29 12:14] VITALS: BP 127/84; PULSE 106; RESP 25; TEMP 36.5; O2SAT 98
[2017-12-29 12:17] VITALS: BP 127/84; PULSE 111; RESP 19; O2SAT 100
--- NOTE | 2017-12-29 12:36 | EKG12_ITS ---
Test Reason : CP Blood Pressure : / mmHG Vent. Rate : 107 BPM Atrial Rate : 107 BPM P-R Int : 126 ms QRS Dur : 090 ms QT Int : 308 ms P-R-T Axes : 079 -40 086 degrees QTc Int : 411 ms Sinus tachycardia Right atrial enlargement Left axis deviation Nonspecific ST and T wave abnormality Abnormal ECG Confirmed by PAIGE MELLO, SAMIRA ([id number]), movie editor CHERYL BELTRE ([id number]) on 01/01/2018 1:26:51 PM Referred By: THERESE Confirmed By:SAMIRA GIBSON MD
--- NOTE | 2017-12-29 12:36 | CT_ITS ---
STUDY: CTA CHEST REASON FOR EXAM: Male, 27 years old. Chest pain. RADIATION DOSAGE (If Supplied By Facility): CTDIvol = ( 9.52 ) mGy, DLP = ( 286.70 ) mGycm TECHNIQUE: The examination was performed with the intravenous administration of 100 ml of Isovue 370 contrast material. Post-processing of the angiographic images was performed, with multiplanar reformation and 3D reconstruction. Individualized dose optimization techniques were used for this CT. COMPARISON: Comparison is made with prior examination dated December 03, 2016. FINDINGS: Normal enhancement of the main pulmonary artery and right and left pulmonary arteries. Normal enhancement of the bilateral peripheral pulmonary arteries. There is no demonstrated pulmonary embolism. Normal thoracic aorta and visualized great vessels. There is no demonstrated aortic dissection. Normal heart and pericardium. Normal mediastinum. Normal hilar regions. Normal visualized trachea and bronchi. The lungs are well expanded. Normal pulmonary parenchyma. Normal pleura. Normal chest wall structures. Normal osseous structures. Normal visualized upper abdomen. CT/CTA Chest W/WO Contrast IMPRESSION: Normal CTA chest examination, without a demonstrated pulmonary embolism or arterial dissection. Electronically Signed: Evan Hendrix MD at 13:35 EDT Tel [phone], Service support ,
--- NOTE | 2017-12-29 12:38 | ED.VISSUMM ---
- ER Visit Summary Date of Service: 12/29/17 Chief Complaint: Chest pain History of Present Illness: The patient is a 27 M who presents with chest and left upper extremity pain that began today. Patient states he was playing video games approximately 30 minutes prior to arrival when he felt pressure in his chest and numbness and tingling in his left upper extremity. Patient states his paresthesias improve when he elevates his left arm. Patient denies any nausea or vomiting. Patient denies any diaphoresis. Patient denies any cough or fevers. Patient denies any palpitations. Patient also admits to some pain in his right inguinal area. Patient denies any urinary complaints. Physical Examination: Vital signs are stable. Patient is afebrile. Patient is in no acute distress. Oral mucosa is pink and moist. Neck is supple. Trachea is midline. Is no JVD noted. Heart was regular rate and rhythm. Lungs are clear and equal bilateral. There is good respiratory effort noted. Abdomen is soft. Bowel sounds are normal. There is some mild right inguinal tenderness. There are no masses or hernias noted. Cranial nerves II through XII are intact. There are no focal motor or sensory deficits noted. The remaining physical exam is within normal limits. Test Results: EKG showed sinus tachycardia with a rate of 107. There are no acute ST or T wave changes. CTA of the chest was obtained. There is no evidence of PE or aortic dissection. Evaluation CBC, metabolic profile, and troponin were obtained and were all within normal limits. Emergency Department Course and Treatment: Patient felt better on reevaluation. Patient has a HEART score of 2. Patient has a JONATHAN score of 1. Patient was advised that this is low risk for acute cardiac event. Patient was instructed to follow-up with his primary care physician in 5-7 days. Patient understood and was agreeable with the plan. All questions were answered. Disposition: Discharge home Impression: Chest pain This note was generated with [employer] dictation software. It may contain incorrect words, spelling, and punctuation that were not noted in review of the chart prior to signing ED Disposition - Plan for ED Patient: Disposition: Home or Assisted Living Chief Complaint: Chest Pain Diagnosis: Chest pain Instructions: ED Chest Pain Atypical Unkn Cause Referrals: Care Physician,No Primary [Primary Care Provider] -
[2017-12-29] MEDS: Aspirin 81 MG TAB.CHEW 324 MG PO (13:00)
[2017-12-29 13:07] LABS: Absolute Lymphocyte Count 3.39 X10^3/ul (0.83-4.51); Absolute Neutrophil Count 2.3 X10^3/uL (2.0-7.7); Basophil# 0.11 X10^3/uL; Basophil% 1.7 % (0-1); Eosinophils% 1.6 % (0-5); Hematocrit 47.6 % (40-54); Hemoglobin 16.5 g/dl (13.0-16.5); Lymphocyte # 3.39 X10^3/ul (4.0); Lymphocyte % 53.5 % (19-41); Mean Corp Hgb Conc 34.7 g/gl (32-36); Mean Corpuscular Hgb 30.6 pg (27.0-32.0); Mean Corpuscular Volume 88.1 fL (80-94); Mean Platelet Vol. 9.7 fl (6.2-12.0); Monocyte# 0.42 X10^3/uL; Monocyte% 6.6 % (0-10); Neutrophil # 2.32 X10^3/uL (2.7-7.7); Neutrophil % 36.6 % (47-70); POSITIVE COUNT NO; POSITIVE DIFFERENTIAL NO; POSITIVE MORPHOLOGY NO; Platelet Count 311 K/mm3 (150-450); RBC Distribution Width SD 38.1 fl (35.1-43.9); White Blood Count 6.3 K/mm3 (4.4-11.0)
[2017-12-29 13:21] LABS: Anion Gap 11 (5-15); BUN 14 mg/dL (7-18); Calcium,Total 9.5 mg/dL (8.5-10.1); Chloride 100 mmol/L (98-107); EST Glomerular Filtration Rate 94 mL/min (>60); Est Glom Filt Rate - Afr Amer 114 mL/min (>60); Estimated Creatinine Clearance 115.38 ml/min; Glucose 142 mg/dL (74-106); Potassium 3.4 mmol/L (3.5-5.1); Sodium Level 138 mmol/L (136-145)
[2017-12-29 14:52] VITALS: BP 110/76; PULSE 61; RESP 16; O2SAT 98
[2017-12-29 15:34] VITALS: BP 113/77; PULSE 65; RESP 17; O2SAT 98
== END 2017-12-29 15:35 | disposition home or self-care (01) ==
PROVIDERS: Emergency Provider Emergency Medicine
DX: R07.9 Chest pain, unspecified (principal); R20.2 Paresthesia of skin; R10.30 Lower abdominal pain, unspecified; Z86.19 Personal history of other infectious and parasitic diseases; F17.200 Nicotine dependence, unspecified, uncomplicated
CPT/HCPCS: 71275; 80048; 84484; 85025; 93005; 99285; Q9967; A4216

== ENCOUNTER 2018-01-07 17:58 | Emergency (ER) | payer MEDICAID, SELFPAY ==
[2018-01-07 17:59] VITALS: BP 104/73; PULSE 80; RESP 17; TEMP 36; O2SAT 98; BMI 18.2
--- NOTE | 2018-01-07 18:12 | ED.VISSUMM ---
- ER Visit Summary Date of Service: 01/07/18 Chief Complaint: Abdominal pain, nausea, vomiting, diarrhea History of Present Illness: The patient is a 27 M who presents with the above symptoms. Started 3 days ago. He has sharp pains in his epigastric and right upper quadrant region. It does not radiate. He has had multiple episodes of vomiting. He has also had diarrhea. He cannot keep anything down. No urinary symptoms. He does have a history of hepatitis C but he states he has not had that checked in about 6 years. He took nothing for this at home. He has had a previous appendectomy. He also states he had ulcers when he was a child. Physical Examination: Vital signs reviewed. HEENT exam unremarkable. Heart is regular rate and rhythm without murmurs. Lungs are clear to auscultation. Abdomen is soft with tenderness in the epigastric and right upper quadrant region. Extremities reveal no edema. Skin exam normal. Neurologic exam normal. Test Results: Normal except for sodium 135 and a glucose of 151 Emergency Department Course and Treatment: Patient was given normal saline, Zofran and morphine. He had no change in symptoms. I will give him intramuscular Bentyl. Patient likely has a viral gastroenteritis. I will treat him with Bentyl and Phenergan at home. He will follow-up with his PCP Treatment Plan: [] Disposition: Discharge Impression: Gastroenteritis This note was generated with [employer] dictation software. It may contain incorrect words, spelling, and punctuation that were not noted in review of the chart prior to signing ED Disposition - Plan for ED Patient: Chief Complaint: Abd Pain Referrals: Care Physician,No Primary [Primary Care Provider] -
[2018-01-07] MEDS: Ondansetron 4 MG/2 ML Vial IV (18:24)
[2018-01-07] MEDS: 0.9% Normal Saline 1,000 ML 1000 ML IV (18:24)
[2018-01-07] MEDS: Morphine 4 MG/ML Syringe IV (18:24)
[2018-01-07 18:25] LABS: Absolute Lymphocyte Count 2.99 X10^3/ul (0.83-4.51); Absolute Neutrophil Count 1.9 X10^3/uL (2.0-7.7); Basophil# 0.05 X10^3/uL; Basophil% 0.9 % (0-1); Eosinophil# 0.13 X10^3/uL; Eosinophils% 2.5 % (0-5); Hematocrit 44.7 % (40-54); Hemoglobin 15.6 g/dl (13.0-16.5); Lymphocyte # 2.99 X10^3/ul (4.0); Lymphocyte % 56.6 % (19-41); Mean Corp Hgb Conc 34.9 g/gl (32-36); Mean Corpuscular Hgb 30.6 pg (27.0-32.0); Mean Corpuscular Volume 87.6 fL (80-94); Mean Platelet Vol. 9.4 fl (6.2-12.0); Monocyte# 0.22 X10^3/uL; Monocyte% 4.2 % (0-10); Neutrophil # 1.89 X10^3/uL (2.7-7.7); Neutrophil % 35.8 % (47-70); Platelet Count 269 K/mm3 (150-450); RBC Distribution Width SD 38.7 fl (35.1-43.9); White Blood Count 5.3 K/mm3 (4.4-11.0)
[2018-01-07 18:29] LABS: POSITIVE COUNT NO; POSITIVE DIFFERENTIAL NO; POSITIVE MORPHOLOGY NO
[2018-01-07 18:40] LABS: AST(SGOT) 19 U/L (15-37); Alanine Aminotransfer ALT/SGPT 33 U/L (16-61); Albumin, Serum 3.9 g/dL (3.2-5.0); Alkaline Phosphatase 54 U/L (45-117); Anion Gap 6 (5-15); BUN 11 mg/dL (7-18); BUN/Creat Ratio 10.1 RATIO (10-20); Bilirubin, Direct 0.22 mg/dL (0.00-0.30); Calcium,Total 9.4 mg/dL (8.5-10.1); Chloride 99 mmol/L (98-107); Creatinine, Serum 1.09 mg/dL (0.70-1.30); EST Glomerular Filtration Rate 85 mL/min (>60); Est Glom Filt Rate - Afr Amer 102 mL/min (>60); Estimated Creatinine Clearance 96.04 ml/min; Globulin 3.7 g/dL (2.2-4.2); Glucose 151 mg/dL (74-106); Lipase 98 U/L (73-393); Potassium 3.6 mmol/L (3.5-5.1); Protein, Total 7.6 g/dL (6.4-8.2); Sodium Level 135 mmol/L (136-145)
--- NOTE | 2018-01-07 18:47 | ED.DEP ---
ED Disposition - Plan for ED Patient: Disposition: Home or Assisted Living Chief Complaint: Abd Pain Instructions: ED Abdominal Pain Unkn Cause Prescriptions: proMETHazine tablet [Phenergan] 25 mg PO Q6H PRN PRN #10 tab PRN Reason: Nausea Dicyclomine HCl [Bentyl] 20 mg PO TIDAC #20 cap Referrals: Care Physician,No Primary [Primary Care Provider] -
[2018-01-07] MEDS: Dicyclomine 20 MG/2 ML Vial IM (19:04)
[2018-01-07 19:27] VITALS: RESP 16
== END 2018-01-07 19:27 | disposition home or self-care (01) ==
PROVIDERS: Emergency Provider Emergency Medicine
DX: K52.9 Noninfective gastroenteritis and colitis, unspecified (principal); Z86.19 Personal history of other infectious and parasitic diseases; Z72.0 Tobacco use
CPT/HCPCS: 80048; 80076; 83690; 85025; 96361; 96372; 96374; 96375; 99283; J7030; A4216; J2405

== ENCOUNTER 2018-02-19 05:49 | Emergency (ER) | payer MEDICAID, SELFPAY ==
[2018-02-19 05:53] VITALS: BP 132/79; PULSE 85; RESP 16; TEMP 36.9; O2SAT 98; BMI 21.2
[2018-02-19] MEDS: LORazepam 2 MG/ML Syringe 1 MG IV (06:28)
[2018-02-19] MEDS: 0.9% Normal Saline 1,000 ML 150 ML IV (06:28)
[2018-02-19 06:38] LABS: Absolute Lymphocyte Count 2.15 X10^3/ul (0.83-4.51); Absolute Neutrophil Count 2.3 X10^3/uL (2.0-7.7); Basophil# 0.06 X10^3/uL; Basophil% 1.2 % (0-1); Eosinophil# 0.11 X10^3/uL; Eosinophils% 2.3 % (0-5); Hematocrit 39.2 % (40-54); Hemoglobin 13.7 g/dl (13.0-16.5); Lymphocyte # 2.15 X10^3/ul (4.0); Lymphocyte % 44.3 % (19-41); Mean Corp Hgb Conc 34.9 g/gl (32-36); Mean Corpuscular Hgb 31.4 pg (27.0-32.0); Mean Corpuscular Volume 89.9 fL (80-94); Mean Platelet Vol. 9.1 fl (6.2-12.0); Monocyte# 0.24 X10^3/uL; Monocyte% 4.9 % (0-10); Neutrophil # 2.29 X10^3/uL (2.7-7.7); Neutrophil % 47.3 % (47-70); Platelet Count 276 K/mm3 (150-450); RBC Distribution Width CV 11.8 % (11.6-14.6); RBC Distribution Width SD 38.2 fl (35.1-43.9); Red Blood Count 4.36 M/mm3 (4.6-6.2); White Blood Count 4.9 K/mm3 (4.4-11.0)
[2018-02-19 06:40] LABS: POSITIVE COUNT NO; POSITIVE DIFFERENTIAL NO; POSITIVE MORPHOLOGY NO
[2018-02-19 06:53] LABS: Anion Gap 6 (5-15); BUN 8 mg/dL (7-18); BUN/Creat Ratio 8.8 RATIO (10-20); Calcium,Total 8.9 mg/dL (8.5-10.1); Chloride 103 mmol/L (98-107); Creatinine, Serum 0.91 mg/dL (0.70-1.30); EST Glomerular Filtration Rate 104 mL/min (>60); Est Glom Filt Rate - Afr Amer 126 mL/min (>60); Estimated Creatinine Clearance 134.48 ml/min; Glucose 119 mg/dL (74-106); Potassium 3.4 mmol/L (3.5-5.1); Sodium Level 140 mmol/L (136-145)
--- NOTE | 2018-02-19 07:28 | ED.VISSUMM ---
- ER Visit Summary Date of Service: 02/19/18 Chief Complaint: [] History of Present Illness: The patient is a 27 M [not feeling well presents the emergency department with vague complaint of feeling shaky and not feeling well. Patient states that he was in line at a gas station the pay for some food when he started feeling shaky all over. Patient states that his feet were warm but felt cold. He felt like his lip was swollen and he had numbness and tingling to his face and arms. Patient denied any chest pain or shortness of breath. Patient admits to smoking marijuana just prior to the symptoms starting. Patient denies headache currently. He does not drink alcohol. He denies any other illicit drug use.] Physical Examination: [HEENT-PERRLA, EOMI. Cranial nerves II through XII grossly intact. TMs clear. Mucous membranes moist. No adenopathy. Cardiovascular-regular rate and rhythm without murmur or ectopy Lungs-clear to auscultation, chest wall stable without crepitus or subcu emphysema Abdomen-normoactive bowel sounds, soft, nontender, no rebound or rigidity, no peritoneal signs. Extremities-intact ?4, normal range of motion, normal pulses, atraumatic] Test Results: [CBC with differential is normal. Chemistries were normal. Tox screen ordered and pending.] Emergency Department Course and Treatment: [Patient was given Ativan 1 mg IV. Patient became very somnolent after and has a hard time keeping his eyes open at this time.] Treatment Plan: [Observe in the department until normalization of sensorium.] Disposition: [Care of patient turned over to morning physician awaiting observation.] Impression: [THC abuse Anxiety disorder] This note was generated with [employer] dictation software. It may contain incorrect words, spelling, and punctuation that were not noted in review of the chart prior to signing ED Disposition - Plan for ED Patient: Chief Complaint: General Illness Referrals: Care Physician,No Primary [Primary Care Provider] -
--- NOTE | 2018-02-19 07:31 | ED.DEP ---
ED Disposition - Plan for ED Patient: Chief Complaint: General Illness Instructions: Cannabinoid Screen and Confirmation Urine, ED Stress React Referrals: Leonid Stanton MD [STAFF PHYSICIAN] - 3-5 Days
[2018-02-19 10:05] VITALS: BP 109/71; PULSE 64; RESP 16; O2SAT 98
[2018-02-19 11:10] VITALS: BP 98/61; PULSE 57; RESP 16; O2SAT 95
== END 2018-02-19 11:12 | disposition home or self-care (01) ==
LOC: ED 06:16
PROVIDERS: Emergency Provider Emergency Medicine
DX: F12.10 Cannabis abuse, uncomplicated (principal); F41.9 Anxiety disorder, unspecified; Z86.19 Personal history of other infectious and parasitic diseases; Z72.0 Tobacco use
CPT/HCPCS: 80048; 85025; 96361; 96374; 99284; J7030; A4216

== ENCOUNTER 2018-05-26 09:38 | Emergency (ER) | payer MEDICAID, SELFPAY ==
[2018-05-26 09:39] VITALS: BP 124/73; PULSE 63; RESP 18; TEMP 36.4; O2SAT 98; BMI 20.7
--- NOTE | 2018-05-26 10:05 | ED.VISSUMM ---
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 His vision is fuzzy even with his glasses he has no other complaints no direct trauma of any kind Physical Examination: [] 122/80 Dr. spears he was able to read the words sponge gauze small print off of the sponge label with the right eye, there is no obvious signs of foreign body the pupil reacts well the anterior chambers intact, some irritation to the conjunctiva, there is no streaming of fluid or aqueous or signs of eye puncture or direct trauma tetracaine applied to left exam no flouriscien available anywhere in the hospital with a slit-lamp exam was unremarkable Test Results: [] Emergency Department Course and Treatment: [] Again holding the sponge gauze to the right eye he is able to read the words sponge gauze he indicates his vision still blurry, lid flip negative I spoke with the senior net application developer on-call for the [facility] they went to see the patient today for evaluation Treatment Plan: [] Disposition: [] Directly to [facility] for evaluation Impression: [] Right eye irritation after potential drywall exposure This note was generated with [employer] dictation software. It may contain incorrect words, spelling, and punctuation that were not noted in review of the chart prior to signing ED Disposition - Plan for ED Patient: Chief Complaint: Eye Problem Referrals: Care Physician,No Primary [Primary Care Provider] -
--- NOTE | 2018-05-26 10:09 | ED.DCSUM_ITS ---
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 His vision is fuzzy even with his glasses he has no other complaints no direct trauma of any kind Physical Examination: [] 122/80 Dr. spears he was able to read the words sponge gauze small print off of the sponge label with the right eye, there is no obvious signs of foreign body the pupil reacts well the anterior chambers intact, some irritation to the conjunctiva, there is no streaming of fluid or aqueous or signs of eye puncture or direct trauma tetracaine applied to left exam no flouriscien available anywhere in the hospital with a slit-lamp exam was unremarkable Test Results: [] Emergency Department Course and Treatment: [] Again holding the sponge gauze to the right eye he is able to read the words sponge gauze he indicates his vision still blurry, lid flip negative I spoke with the body and fender worker on-call for the [facility] they went to see the patient today for evaluation Treatment Plan: [] Disposition: [] Directly to [facility] for evaluation Impression: [] Right eye irritation after potential drywall exposure This note was generated with [employer] dictation software. It may contain incorrect words, spelling, and punctuation that were not noted in review of the chart prior to signing ED Disposition - Plan for ED Patient: Chief Complaint: Eye Problem Referrals: Care Physician,No Primary [Primary Care Provider] -
--- NOTE | 2018-05-26 10:09 | ED.DEP ---
ED Disposition - Plan for ED Patient: Chief Complaint: Eye Problem Instructions: ED Chemical Conjunctivitis, Corneal Injury Referrals: Care Physician,No Primary [Primary Care Provider] - Ephraim Hamilton MD [STAFF PHYSICIAN] - Additional Instructions: Go directly to the [facility] to be seen by the eye doctor do not stop anywhere but go directly to the office
--- NOTE | 2018-05-26 10:16 | CM.ED ---
Social Work Note Face to face with pt as he does not have a PCP established. Introduced self and role at [facility]. The pt is lying in bed with a beanie hat pulled down over his eyes. He is alert and oriented x4 and responds briefly to inquiries. Pt confirms that he does not have a PCP, but does have [employer]. Discuss the importance of having a PCP and provide the pt with a list of physicians that are accepting new pt's with [facility]. Understanding expressed. Pt does report to have stable housing, adequate food and access to transportation. Denies further concerns, and made aware that SW is available if needs arise. PLAN: Establish care with PCP for follow-up. ED Neal, RACHAEL
--- OUTSIDE RECORDS SUMMARY | 2018-07-12 10:26 | XMS RPT_ITS ---
:1990 Author Organization OHIP Support Name Relationship Address Phone AP MASTERSON Unavailable [address] [phone] [place] [address] UE Unavailable Unavailable Unavailable AP MASTERSON Unavailable [address] [phone] [place] [address] UE Unavailable Unavailable Unavailable AP MASTERSON Unavailable [address] [phone] [place] [address] UE Unavailable Unavailable Unavailable AP MASTERSON Unavailable [address] [phone] [place] [address] UE Unavailable Unavailable Unavailable AP MASTERSON Unavailable [address] [phone] [place] [address] UE Unavailable Unavailable Unavailable AP MASTERSON Unavailable [address] [phone] [place] [address] UE Unavailable Unavailable Unavailable AP MASTERSON Unavailable [address] [phone] [place] [address] UE Unavailable Unavailable Unavailable AP MASTERSON Unavailable [address] [facility] + [place] [address] AP MASTERSON Unavailable [address] [phone] [place] [address] AP MASTERSON Unavailable [address] [phone] [place] [address] IFORCE Unavailable [address] [phone] [place] [address] AP MASTERSON Unavailable [address] [facility] + [place] [address] IFORCE Unavailable [address] [phone] [place] [address] MASTERSON, AP Unavailable [address] + [place] [address] IFORCE Unavailable [address] [phone] [place] [address] MASTERSON, AP Unavailable [address] + [place] [address] IFORCE Unavailable [address] [phone] [place] [address] MASTERSON, AP Unavailable [address] + [place] [address] IFORCE Unavailable [address] [phone] [place] [address] MASTERSON, AP Unavailable [address] + [place] [address] IFORCE Unavailable [address] [phone] [place] [address] MASTERSON, AP Unavailable [address] + [place] [address] IFORCE Unavailable [address] [phone] [place] [address] MASTERSON, AP Unavailable [address] + [place] [address] IFORCE Unavailable [address] [phone] [place] [address] MASTERSON, AP Unavailable [address] + [place] [address] Care Team Providers Name Role Phone JESSEE BRONSON Attending Unavailable VIKI MANN MD Primary Care Unavailable Primay Care Physicia, No Primary Care Unavailable Herb Madrigal Attending Unavailable Primay Care Physicia, No Primary Care Unavailable Kirstin Barkleyo Attending Unavailable Primay Care Physicia, No Primary Care Unavailable Filippo Eamon Attending Unavailable Andrés Amador Attending Unavailable Primay Care Physicia, No Referring Unavailable Primay Care Physicia, No Primary Care Unavailable Primay Care Physicia, No Primary Care Unavailable White, Yanet Admitting Unavailable Sementi, Alem Attending Unavailable Esdras, Emre Consulting Unavailable Primay Care Physicia, No Primary Care Unavailable Rickie Roldan Attending Unavailable White, Yanet Admitting Unavailable White, Yanet Attending Unavailable Primay Care Physicia, No Primary Care Unavailable White, Yanet Consulting Unavailable White, Yanet Admitting Unavailable Esdras, Emre Attending Unavailable Primay Care Physicia, No Primary Care Unavailable Esdras, Emre Consulting Unavailable Sementi, Alem Consulting Unavailable White, Yanet Admitting Unavailable Esdras, Emre Attending Unavailable Primay Care Physicia, No Primary Care Unavailable Sedras, Emre Consulting Unavailable Sementi, Alem Consulting Unavailable White, Yanet Admitting Unavailable Sementi, Alem Attending Unavailable Primay Care Physicia, No Primary Care Unavailable Esdras, Emre Consulting Unavailable Sementi, Alem Consulting Unavailable Esdras, Emre Attending Unavailable Primay Care Physicia, No Referring Unavailable Primay Care Physicia, No Primary Care Unavailable Primay Care Physicia, No Primary Care Unavailable Rachel Macias Attending Unavailable Primay Care Physicia, No Primary Care Unavailable Mark Perea Attending Unavailable Primay Care Physicia, No Primary Care Unavailable Rickie Roldan Attending Unavailable Primay Care Physicia, No Primary Care Unavailable Alfred Camacho Attending Unavailable PROBLEMS PROBLEMS DATE TYPE CONDITION / CODE ATTENDING STATUS SOURCE 11/11/2017 Unknown L02.511 - Andrés Amador Active [place] Cutaneous Community abscess of right Hospital hand / Repository L02.511(ICD-10) 09/01/2017 Unknown M79.89 - Other Barkley, Eamon Active [place] specified soft Community tissue disorders [facility] / M79.89(ICD-10) Repository PROCEDURES PROCEDURES No Procedure Records FoundRESULTS RESULTS DISCHARGE INSTRUCTION Observed: 06/25/2018 Status: F Source: [place] 10:58 PM [facility] REPOSITORY [facility] Medical Records Department [address] [place] [address] Discharge Instruction 06/25/18 2257 MR#: [id number] Acct: [id number] Name: ALEJANDRODELVIN Silvina Rep #: [id number] : 1990 28 From: Rickie Roldan MD PCP: Care Physician, No Primary Status: REG ER ED Disposition - Plan for ED Patient: Disposition: Home or Assisted Living Chief Complaint: Abd Pain Instructions: ED Abdominal Pain Unkn Cause Prescriptions: proMETHazine tablet [Phenergan] 25 mg PO Q6H PRN PRN #10 tab PRN Reason: Nausea Dicyclomine HCl [Bentyl] 20 mg PO TIDAC #20 cap Referrals: Care Physician,No Primary [Primary Care Provider] - What to do if you have Problems For any increased pain, shortness of breath, bleeding, nausea or vomiting, chest pain, or any unexpected problems, contact your Primary Care Provider. Call [facility] ([phone]) or report to the closest Emergency Room. Call 911 if necessary. 06/25/18 2258 <Electronically signed by Rickie Roldan MD> Date Rickie Roldan MD Cosigner Signature (If Indicated): Date CC: No Primary Care Physician EMERGENCY DEPARTMENT Observed: 06/25/2018 Status: F Source: [place] SUMMARY 10:57 PM [facility] REPOSITORY [facility] Medical Records Department [address] [place] [address] Emergency Department Summary 06/25/18 2205 MR#: [id number] Acct: [id number] Name: DELVIN ALLEN Rep #: [id number] : 1990 28 From: Rickie Roldan MD PCP: Care Physician, No Primary Status: REG ER - ER Visit Summary Date of Service: 06/25/18 Chief Complaint: Abdominal pain, nausea, vomiting, diarrhea History of Present Illness: The patient is a 28 M who presents with the above symptoms. Started 2 days ago. He describes sharp pains in the epigastric region. It does not radiate. He states he has had over 12 bowel movements that are loose and watery. He has vomited a couple of times as well. Denies fevers. He denies any urinary symptoms. He has had a history of an appendectomy in the past. He took nothing for this at home. Physical Examination: Vital signs reviewed. HEENT exam unremarkable. Heart is regular rate and rhythm without murmurs. Lungs are clear to auscultation. Abdomen is soft with epigastric tenderness to palpation.. Extremities reveal no edema. Skin exam normal. Neurologic exam normal. Test Results: None performed Emergency Department Course and Treatment: Patient was given Bentyl and Zofran. He had no relief of this so he was given a GI cocktail. Patient exam is fairly benign. He has normal vital signs. This is likely a viral gastrointestinal illness. I do not feel he requires any imaging or testing. I will send him home with Phenergan and Bentyl. He will follow-up with his PCP Treatment Plan: [] Disposition: Discharge Impression: Nausea vomiting and diarrhea This note was generated with [employer] dictation software. It may contain incorrect words, spelling, and punctuation that were not noted in review of the chart prior to signing ED Disposition - Plan for ED Patient: Chief Complaint: Abd Pain Referrals: Care Physician,No Primary [Primary Care Provider] - What to do if you have Problems For any increased pain, shortness of breath, bleeding, nausea or vomiting, chest pain, or any unexpected problems, contact your Primary Care Provider. Call [facility] ([phone]) or report to the closest Emergency Room. Call 911 if necessary. 06/25/18 2257 <Electronically signed by Rickie Roldan MD> Date Rickie Roldan MD Cosigner Signature (If Indicated): Date CC: No Primary Care Physician EMERGENCY DEPARTMENT Observed: 06/17/2018 Status: F Source: [place] SUMMARY 3:18 PM [facility] REPOSITORY [facility] Medical Records Department [address] [place] [address] Emergency Department Summary 06/17/18 1513 MR#: [id number] Acct: [id number] Name: DELVIN ALLEN Rep #: [id number] : 1990 28 From: Eamon Barkley MD PCP: Serafin Physician, No Primary Status: REG ER - ER Visit Summary Date of Service: 06/17/18 Chief Complaint: Coughing up blood History of Present Illness: The patient is a 28 M who is a smoker of 1/2 pack/day since age of 10 presents with runny nose, congestion cough that is blood streaked. He denies fever or chills. He denies leg pain, swelling discoloration. He denies history of PE or DVT and has no risk factors. He denies any visual, ocular auditory symptoms. He does complain of sore throat and slight horsed voice. He does report chest discomfort with coughing only. He denies any GI or symptoms. He does complain of myalgias. He also reports generalized weakness. Physical Examination: Vital signs noted and unremarkable. Patient arrived with pillow and blanket. Head is atraumatic normocephalic. Pupils are equal round reactive. Extraocular muscles are intact. TMs are pearly white with landmarks noted. Nares patent with clear drainage. Posterior pharynx without erythema or exudate. Uvula is midline. There is no dysphonia or dysphasia. Trachea is midline. There is no stridor with auscultation of the neck. Heart is regular without murmur, gallop or rub. S1 and S2 are normal. Lungs are clear to auscultation with good movement of air bilaterally. There is no asymmetry, swelling, discoloration, leg vein distention, palpable cords or tenderness along the distribution of the deep venous system. Test Results: Two-view chest x-ray reveals minimal chronic changes with no evidence of pneumothorax, infiltrate or any abnormality. Emergency Department Course and Treatment: Chest x-ray was obtained since patient has blood streaked sputum. History is consistent with upper respiratory infection. Most likely patient obstructing a vessel with coughing. Treatment Plan: Albuterol MDI and stop smoking Disposition: Discharge to home Impression: Hemoptysis secondary to acute viral bronchitis This note was generated with [employer] dictation software. It may contain incorrect words, spelling, and punctuation that were not noted in review of the chart prior to signing ED Disposition - Plan for ED Patient: Disposition: Home or Assisted Living Chief Complaint: Cough Instructions: ED Upper Resp Infec No Abx Tx, ED Hemoptysis Prescriptions: Albuterol Inhaler [Ventolin Hfa] 2 puff INHALATION Q4H PRN PRN #1 inhaler PRN Reason: Shortness of breath or wheezin Referrals: Care Physician,No Primary [Primary Care Provider] - Additional Instructions: Your prescription was electronically transmitted to [facility] on [facility]. It is in your best interest to stop smoking. What to do if you have Problems For any increased pain, shortness of breath, bleeding, nausea or vomiting, chest pain, or any unexpected problems, contact your Primary Care Provider. Call [facility] ([phone]) or report to the closest Emergency Room. Call 911 if necessary. 06/17/18 1518 <Electronically signed by Eamon Barkley MD> Date Eamon Barkley MD Cosigner Signature (If Indicated): Date CC: No Primary Care Physician CHEST PA AND LATERAL Observed: 06/17/2018 Status: F Source: [place] 2:29 PM [facility] REPOSITORY [facility] Imaging Services [address] [place] [id number] Chest PA and Lateral MR#: [id number] Acct: [id number] Name: DELVIN ALLEN Rep #: [id number] : 1990 M 28 From: Evan Hendrix MD PCP: Care Physician, No Primary Status: REG ER Study: Chest PA and Lateral Date of Exam: 06/17/18 Exam# [id number] Ordering Dr: Eamon Barkley MD STUDY: X-RAY CHEST REASON FOR EXAM: Male, 28 years old. 2 day history of hemoptysis TECHNIQUE: PA and lateral views of the chest. COMPARISON: Comparison is made with prior study dated January 18, 2017. FINDINGS: Hyperinflation. The lungs are clear. There is no demonstrated pleural abnormality. Normal size heart. Normal mediastinum and jaime. Normal visualized pulmonary arteries. Normal visualized aortic arch and descending thoracic aorta. Normal visualized thoracic spine. Normal visualized ribs, clavicles, and shoulders. There is no demonstrated abnormality of the visualized soft tissue structures of the upper abdomen. RAD/Chest PA and Lateral IMPRESSION: Hyperinflation. Electronically Signed: Evan Hendrix MD at 14:45 EST Tel [phone], Service support , CC: No Primary Care Physician; Eamon Barkley MD Project Superintendent: Signed EMERGENCY DEPARTMENT Observed: 05/26/2018 Status: F Source: [place] SUMMARY 5:10 PM [facility] REPOSITORY [facility] Medical Records Department [address] [place] [address] Emergency Department Summary 05/26/18 1005 MR#: [id number] Acct: [id number] Name: DELVIN ALLEN Rep #: [id number] : 1990 28 From: Herb Madrigal MD PCP: Care Physician, No Primary Status: DEP ER - ER Visit Summary Date of Service: 05/26/18 Chief Complaint: [] Right eye irritation tearing down drywall yesterday History of Present Illness: The patient is a 28 M [] he was wearing his prescription glasses was 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 His vision is fuzzy even with his glasses he has no other complaints no direct trauma of any kind Physical Examination: [] 122/80 Dr. spears he was able to read the words sponge gauze small print off of the sponge label with the right eye, there is no obvious signs of foreign body the pupil reacts well the anterior chambers intact, some irritation to the conjunctiva, there is no streaming of fluid or aqueous or signs of eye puncture or direct trauma gómezine applied to left exam no flouriscien available anywhere in the hospital with a slit- lamp exam was unremarkable Test Results: [] Emergency Department Course and Treatment: [] Again holding the sponge gauze to the right eye he is able to read the words sponge gauze he indicates his vision still blurry, lid flip negative I spoke with the asphalt tamping machine operator on-call for the [facility] they went to see the patient today for evaluation Treatment Plan: [] Disposition: [] Directly to [facility] for evaluation Impression: [] Right eye irritation after potential drywall exposure This note was generated with eventblimpation software. It may contain incorrect words, spelling, and punctuation that were not noted in review of the chart prior to signing ED Disposition - Plan for ED Patient: Chief Complaint: Eye Problem Referrals: Care Physician,No Primary [Primary Care Provider] - What to do if you have Problems For any increased pain, shortness of breath, bleeding, nausea or vomiting, chest pain, or any unexpected problems, contact your Primary Care Provider. Call [facility] ([phone]) or report to the closest Emergency Room. Call 911 if necessary. 05/26/18 1710 <Electronically signed by Herb Madrigal MD> Date Herb Madrigal MD Cosigner Signature (If Indicated): Date CC: No Primary Care Physician DISCHARGE INSTRUCTION Observed: 05/26/2018 Status: F Source: [place] 10:10 AM [facility] REPOSITORY [facility] Medical Records Department [address] [place] [address] Discharge Instruction 05/26/18 1009 MR#: [id number] Acct: [id number] Name: ALEJANDRODELVIN Rep #: [id number] : 1990 28 From: Herb Madrigal MD PCP: Care Physician, No Primary Status: REG ER ED Disposition - Plan for ED Patient: Chief Complaint: Eye Problem Instructions: ED Chemical Conjunctivitis, Corneal Injury Referrals: Care Physician,No Primary [Primary Care Provider] - Ephraim Hamilton MD [STAFF PHYSICIAN] - Additional Instructions: Go directly to the [facility] to be seen by the eye doctor do not stop anywhere but go directly to the office What to do if you have Problems For any increased pain, shortness of breath, bleeding, nausea or vomiting, chest pain, or any unexpected problems, contact your Primary Care Provider. Call [facility] ([phone]) or report to the closest Emergency Room. Call 911 if necessary. 05/26/18 1010 <Electronically signed by Herb Madrigal MD> Date Herb Madrigal MD Cosigner Signature (If Indicated): Date CC: No Primary Care Physician DISCHARGE INSTRUCTION Observed: 02/19/2018 Status: F Source: [place] 7:34 AM [facility] REPOSITORY [facility] Medical Records Department [address] [place] [address] Discharge Instruction 02/19/18730 MR#: [id number] Acct: [id number] Name: DELVIN ALLEN Silvina Rep #: [id number] : 1990 27 From: Alfred Camacho DO PCP: Care Physician, No Primary Status: REG ER ED Disposition - Plan for ED Patient: Chief Complaint: General Illness Instructions: Cannabinoid Screen and Confirmation Urine, ED Stress React Referrals: Leonid Stanton MD [STAFF PHYSICIAN] - 3-5 Days What to do if you have Problems For any increased pain, shortness of breath, bleeding, nausea or vomiting, chest pain, or any unexpected problems, contact your Primary Care Provider. Call [facility] ([phone]) or report to the closest Emergency Room. Call 911 if necessary. 02/19/18 0734 <Electronically signed by Alfred Camacho DO> Date Alfred Camacho DO Cosigner Signature (If Indicated): Date CC: No Primary Care Physician EMERGENCY DEPARTMENT Observed: 02/19/2018 Status: F Source: [place] SUMMARY 7:31 AM [facility] REPOSITORY [facility] Medical Records Department [address] [place] [address] Emergency Department Summary 02/19/18 0728 MR#: [id number] Acct: [id number] Name: DELVIN ALLEN Rep #: [id number] : 1990 27 From: Alfred Camacho DO PCP: Care Physician, No Primary Status: REG ER - ER Visit Summary Date of Service: 02/19/18 Chief Complaint: [] History of Present Illness: The patient is a 27 M [not feeling well presents the emergency department with vague complaint of feeling shaky and not feeling well. Patient states that he was in line at a gas station the pay for some food when he started feeling shaky all over. Patient states that his feet were warm but felt cold. He felt like his lip was swollen and he had numbness and tingling to his face and arms. Patient denied any chest pain or shortness of breath. Patient admits to smoking marijuana just prior to the symptoms starting. Patient denies headache currently. He does not drink alcohol. He denies any other illicit drug use.] Physical Examination: [HEENT-PERRLA, EOMI. Cranial nerves II through XII grossly intact. TMs clear. Mucous membranes moist. No adenopathy. Cardiovascular-regular rate and rhythm without murmur or ectopy Lungs-clear to auscultation, chest wall stable without crepitus or subcu emphysema Abdomen-normoactive bowel sounds, soft, nontender, no rebound or rigidity, no peritoneal signs. Extremities-intact 4, normal range of motion, normal pulses, atraumatic] Test Results: [CBC with differential is normal. Chemistries were normal. Tox screen ordered and pending.] Emergency Department Course and Treatment: [Patient was given Ativan 1 mg IV. Patient became very somnolent after and has a hard time keeping his eyes open at this time.] Treatment Plan: [Observe in the department until normalization of sensorium.] Disposition: [Care of patient turned over to morning physician awaiting observation.] Impression: [THC abuse Anxiety disorder] This note was generated with [employer] dictation software. It may contain incorrect words, spelling, and punctuation that were not noted in review of the chart prior to signing ED Disposition - Plan for ED Patient: Chief Complaint: General Illness Referrals: Care Physician,No Primary [Primary Care Provider] - What to do if you have Problems For any increased pain, shortness of breath, bleeding, nausea or vomiting, chest pain, or any unexpected problems, contact your Primary Care Provider. Call [facility] ([phone]) or report to the closest Emergency Room. Call 911 if necessary. 02/19/18 0731 <Electronically signed by Alfred Camacho DO> Date Alfred Camacho DO Cosigner Signature (If Indicated): Date CC: No Primary Care Physician CBC W/DIFF, AUTOMATED Collected: 02/19/2018 Status: F Source: [place] 6:30 AM [facility] REPOSITORY TYPE CODE TESTS RESULT OUT OF RANGE REFERENCE UNITS LAB L100.1000 4.4-11.0 K/mm3 Normal WBC 4.9 LAB L100.1200 4.6-6.2 M/mm3 Low RBC 4.36 LAB L100.1300 13.0-16.5 g/dl Normal HGB 13.7 LAB L100.1400 40-54 % Low HCT 39.2 LAB L100.1500 80-94 fL Normal MCV 89.9 LAB L100.1600 27.0-32.0 pg Normal MCH 31.4 LAB L100.1700 32-36 g/gl Normal MCHC 34.9 LAB L100.1810 11.6-14.6 % Normal RDW CV 11.8 LAB L100.1820 35.1-43.9 fl Normal RDW SD 38.2 LAB L100.1900 150-450 K/mm3 Normal PLT 276 LAB L100.2000 6.2-12.0 fl Normal MPV 9.1 LAB L100.2100 47-70 % Normal NEUT% 47.3 LAB L100.2200 19-41 % High LY% 44.3 LAB L100.2300 0-10 % Normal MONO% 4.9 LAB L100.2400 0-5 % Normal EO% 2.3 LAB L100.2500 0-1 % High BASO% 1.2 LAB L100.2550 0.0-0.9 % Normal IM GRAN % 0.000 Result Comment: IG% - Immature Granulocytes (promyelocytes, myelocytes and metamyelocytes) > 1% indicates that a LEFT SHIFT is Present. LAB L100.2620 2.0-7.7 X10 3/uL Normal Absolute Neut 2.3 LAB L100.2720 0.83-4.51 X10 3/ul Normal Absolute Lymph 2.15 Performed By: #### L100.0100 #### [facility] [address] [place], [place], [address] BASIC METABOLIC Collected: 02/19/2018 Status: F Source: [place] PROFILE ([facility]) 6:30 AM [facility] REPOSITORY TYPE CODE TESTS RESULT OUT OF RANGE REFERENCE UNITS LAB L501.0100 74-106 mg/dL High GLU 119 Result Comment: Fasting Glucose result from 100 to 125 mg/dL suggests IMPAIRED HOMEOSTASIS per A.D.A. criteria. Please note revised GLUCOSE reference range effective 2017. LAB L501.1000 7-18 mg/dL Normal BUN 8 LAB L501.1100 0.70-1.30 mg/dL Normal CREAT,SERUM 0.91 Result Comment: The validity of the calculated GFR AND GFRAA in patients over 70 years has not been determined. Clinical correlation is essential. LAB L501.1110 >60 mL/min Normal EST GFR 104 Result Comment: Non- GFR Calc LAB L501.1115 >60 mL/min Normal EST GFR - AA 126 Result Comment: GFR Calc LAB L501.1255 ml/min Normal Estimated CRCL 134.48 LAB L501.1300 10-20 RATIO Low BUN/CRE 8.8 LAB L501.2200 8.5-10 mg/dL .1 CA Normal 8.9 LAB L501.5300 136-14 mmol/L 5 NA Normal 140 LAB L501.5600 3.5-5. mmol/L Low 1 K 3.4 LAB L501.5900 98-107 mmol/L CL Normal 103 LAB L501.6100 21.0-3 mmol/L 2.0 CO2 Normal 31.0 LAB L501.6200 5-15 GAP Normal 6 Performed By: #### L500.2500 #### [facility] [address] [facility] [place], [address] EMERGENCY DEPARTMENT Observed: 01/07/2018 Status: F Source: [place] SUMMARY 6:47 PM [facility] REPOSITORY [facility] Medical Records Department [address] [place] [address] Emergency Department Summary 01/07/18 1812 MR#: [id number] Acct: [id number] Name: DELVIN ALLEN Rep #: [id number] : 1990 27 From: Rickie Roladn MD PCP: Care Physician, No Primary Status: REG ER - ER Visit Summary Date of Service: 01/07/18 Chief Complaint: Abdominal pain, nausea, vomiting, diarrhea History of Present Illness: The patient is a 27 M who presents with the above symptoms. Started 3 days ago. He has sharp pains in his epigastric and right upper quadrant region. It does not radiate. He has had multiple episodes of vomiting. He has also had diarrhea. He cannot keep anything down. No urinary symptoms. He does have a history of hepatitis C but he states he has not had that checked in about 6 years. He took nothing for this at home. He has had a previous appendectomy. He also states he had ulcers when he was a child. Physical Examination: Vital signs reviewed. HEENT exam unremarkable. Heart is regular rate and rhythm without murmurs. Lungs are clear to auscultation. Abdomen is soft with tenderness in the epigastric and right upper quadrant region. Extremities reveal no edema. Skin exam normal. Neurologic exam normal. Test Results: Normal except for sodium 135 and a glucose of 151 Emergency Department Course and Treatment: Patient was given normal saline, Zofran and morphine. He had no change in symptoms. I will give him intramuscular Bentyl. Patient likely has a viral gastroenteritis. I will treat him with Bentyl and Phenergan at home. He will follow-up with his PCP Treatment Plan: [] Disposition: Discharge Impression: Gastroenteritis This note was generated with [employer] dictation software. It may contain incorrect words, spelling, and punctuation that were not noted in review of the chart prior to signing ED Disposition - Plan for ED Patient: Chief Complaint: Abd Pain Referrals: Care Physician,No Primary [Primary Care Provider] - What to do if you have Problems For any increased pain, shortness of breath, bleeding, nausea or vomiting, chest pain, or any unexpected problems, contact your Primary Care Provider. Call [facility] ([phone]) or report to the closest Emergency Room. Call 911 if necessary. 01/07/181846 <Electronically signed by Rickie Roldan MD> Date Rickie Roldan MD Cosigner Signature (If Indicated): Date CC: No Primary Care Physician DISCHARGE INSTRUCTION Observed: 01/07/2018 Status: F Source: [place] 6:47 PM [facility] REPOSITORY [facility] Medical Records Department [address] [place] [address] Discharge Instruction 01/07/181846 MR#: [id number] Acct: [id number] Name: ALEJANDRODELVIN Rep #: [id number] : 1990 27 From: Rickie Roldan MD PCP: Serafin Physician, No Primary Status: REG ER ED Disposition - Plan for ED Patient: Disposition: Home or Assisted Living Chief Complaint: Abd Pain Instructions: ED Abdominal Pain Unkn Cause Prescriptions: proMETHazine tablet [Phenergan] 25 mg PO Q6H PRN PRN #10 tab PRN Reason: Nausea Dicyclomine HCl [Bentyl] 20 mg PO TIDAC #20 cap Referrals: Care Physician,No Primary [Primary Care Provider] - What to do if you have Problems For any increased pain, shortness of breath, bleeding, nausea or vomiting, chest pain, or any unexpected problems, contact your Primary Care Provider. Call [facility] ([phone]) or report to the closest Emergency Room. Call 911 if necessary. 01/07/18 1847 <Electronically signed by Rickie Roldan MD> Date Rickie Roldan MD Cosigner Signature (If Indicated): Date CC: No Primary Care Physician CBC W/DIFF, AUTOMATED Collected: 01/07/2018 Status: F Source: [place] 6:15 PM [facility] REPOSITORY TYPE CODE TESTS RESULT OUT OF RANGE REFERENCE UNITS LAB L100.1000 4.4-11.0 K/mm3 Normal WBC 5.3 LAB L100.1200 4.6-6.2 M/mm3 Normal RBC 5.10 LAB L100.1300 13.0-16.5 g/dl Normal HGB 15.6 LAB L100.1400 40-54 % Normal HCT 44.7 LAB L100.1500 80-94 fL Normal MCV 87.6 LAB L100.1600 27.0-32.0 pg Normal MCH 30.6 LAB L100.1700 32-36 g/gl Normal MCHC 34.9 LAB L100.1810 11.6-14.6 % Normal RDW CV 12.0 LAB L100.1820 35.1-43.9 fl Normal RDW SD 38.7 LAB L100.1900 150-450 K/mm3 Normal PLT 269 LAB L100.2000 6.2-12.0 fl Normal MPV 9.4 LAB L100.2100 47-70 % Low NEUT% 35.8 LAB L100.2200 19-41 % High LY% 56.6 LAB L100.2300 0-10 % Normal MONO% 4.2 LAB L100.2400 0-5 % Normal EO% 2.5 LAB L100.2500 0-1 % Normal BASO% 0.9 LAB L100.2550 0.0-0.9 % Normal IM GRAN % 0.000 Result Comment: IG% - Immature Granulocytes (promyelocytes, myelocytes and metamyelocytes) > 1% indicates that a LEFT SHIFT is Present. LAB L100.2620 2.0-7.7 X10 3/uL Low Absolute Neut 1.9 LAB L100.2720 0.83-4.51 X10 3/ul Normal Absolute Lymph 2.99 Performed By: #### L100.0100 #### [facility] [address] [place], [address] BASIC METABOLIC Collected: 01/07/2018 Status: F Source: [place] PROFILE ([facility]) 6:15 PM [facility] REPOSITORY TYPE CODE TESTS RESULT OUT OF RANGE REFERENCE UNITS LAB L501.0100 74-106 mg/dL High GLU 151 Result Comment: Fasting Glucose result greater than or equal to 126 mg/dL suggests DIABETES MELLITUS per A.D.A. criteria. Please note revised GLUCOSE reference range effective 2017. LAB L501.1000 7-18 mg/dL Normal BUN 11 LAB L501.1100 0.70-1.30 mg/dL Normal CREAT,SERUM 1.09 Result Comment: The validity of the calculated GFR AND GFRAA in patients over 70 years has not been determined. Clinical correlation is essential. LAB L501.1110 >60 mL/min Normal EST GFR 85 Result Comment: Non- GFR Calc LAB L501.1115 >60 mL/min Normal EST GFR - AA 102 Result Comment: GFR Calc LAB L501.1255 ml/min Normal Estimated CRCL 96.04 LAB L501.1300 10-20 RATIO Normal BUN/CRE 10.1 LAB L501.2200 8.5-10 mg/dL Normal .1 CA 9.4 LAB L501.5300 136-14 mmol/L Low 5 NA 135 LAB L501.5600 3.5-5. mmol/L Normal 1 K 3.6 LAB L501.5900 98-107 mmol/L Normal CL 99 LAB L501.6100 21.0-3 mmol/L Normal 2.0 CO2 30.0 LAB L501.6200 5-15 Normal GAP 6 Performed By: #### L500.2500, L500.3400, L501.2450 #### [facility] [address] [place], [address] LIVER PROFILE Collected: 01/07/2018 Status: F Source: [place] 6:15 PM [facility] REPOSITORY TYPE CODE TESTS RESULT OUT OF RANGE REFERENCE UNITS LAB L501.1500 6.4-8.2 g/dL Normal T PROT 7.6 LAB L501.1800 3.2-5.0 g/dL Normal ALB 3.9 LAB L501.1950 2.2-4.2 g/dL Normal GLOB 3.7 LAB L501.4100 15-37 U/L Normal AST 19 LAB L501.4305 45-117 U/L Normal ALK P 54 LAB L501.4405 16-61 U/L Normal ALT 33 LAB L501.4600 0.20-1.00 mg/dL Normal T BILI 0.80 LAB L501.4700 0.00-0.30 mg/dL Normal D BILI 0.22 Performed By: #### L500.2500, L500.3400, L501.2450 #### [facility] [address] [place], [address] LIPASE Collected: 01/07/2018 Status: F Source: [place] 6:15 PM [facility] REPOSITORY TYPE CODE TESTS RESULT OUT OF RANGE REFERENCE UNITS LAB L501.2450 73-393 U/L Normal LIPASE 98 Performed By: #### L500.2500, L500.3400, L501.2450 #### [facility] [address] [place], [address] 12 LEAD ELECTROCARDIOGRAM Observed: 01/01/2018 Status: F Source: [place] 1:27 PM [facility] REPOSITORY [facility] Cardiovascular Services [address] [place] [address] 12 Lead EKG 12/29/17 1213 MR#: [id number] Acct: [id number] Name: DELVNI ALLEN Rep #: [id number] : 1990 27 From: Jaime Morocho MD Attending Dr: Status: DEP ER Ordering Dr: Mark Perea DO Date: 12/29/17 Location: ED Sex: M C Admitted: Test Reason : CP Blood Pressure : / mmHG Vent. Rate : 107 BPM Atrial Rate : 107 BPM P-R Int : 126 ms QRS Dur : 090 ms QT Int : 308 ms P-R-T Axes : 079 -40 086 degrees QTc Int : 411 ms Sinus tachycardia Right atrial enlargement Left axis deviation Nonspecific ST and T wave abnormality Abnormal ECG Confirmed by JAIME MOROCHO MD ([id number]), supervising editor news reel CHERYL BELTRE ([id number]) on 01/01/2018 1:26:51 PM Referred By: THERESE Confirmed By:JAIME MOROCHO MD 01/01/18 1326 Date Jaime Morocho MD CC: No Primary Care Physician; Mark Perea DO Signed EMERGENCY DEPARTMENT Observed: 12/29/2017 Status: F Source: [place] SUMMARY 3:09 PM [facility] REPOSITORY [facility] Medical Records Department [address] [place] [address] Emergency Department Summary 12/29/17 1238 MR#: [id number] Acct: [id number] Name: DELVIN LALEN Rep #: [id number] : 1990 27 From: Mark Perea DO PCP: Care Physician, No Primary Status: REG ER - ER Visit Summary Date of Service: 12/29/17 Chief Complaint: Chest pain History of Present Illness: The patient is a 27 M who presents with chest and left upper extremity pain that began today. Patient states he was playing video games approximately 30 minutes prior to arrival when he felt pressure in his chest and numbness and tingling in his left upper extremity. Patient states his paresthesias improve when he elevates his left arm. Patient denies any nausea or vomiting. Patient denies any diaphoresis. Patient denies any cough or fevers. Patient denies any palpitations. Patient also admits to some pain in his right inguinal area. Patient denies any urinary complaints. Physical Examination: Vital signs are stable. Patient is afebrile. Patient is in no acute distress. Oral mucosa is pink and moist. Neck is supple. Trachea is midline. Is no JVD noted. Heart was regular rate and rhythm. Lungs are clear and equal bilateral. There is good respiratory effort noted. Abdomen is soft. Bowel sounds are normal. There is some mild right inguinal tenderness. There are no masses or hernias noted. Cranial nerves II through XII are intact. There are no focal motor or sensory deficits noted. The remaining physical exam is within normal limits. Test Results: EKG showed sinus tachycardia with a rate of 107. There are no acute ST or T wave changes. CTA of the chest was obtained. There is no evidence of PE or aortic dissection. Evaluation CBC, metabolic profile, and troponin were obtained and were all within normal limits. Emergency Department Course and Treatment: Patient felt better on reevaluation. Patient has a HEART score of 2. Patient has a JONATHAN score of 1. Patient was advised that this is low risk for acute cardiac event. Patient was instructed to follow- up with his primary care physician in 5-7 days. Patient understood and was agreeable with the plan. All questions were answered. Disposition: Discharge home Impression: Chest pain This note was generated with [employer] dictation software. It may contain incorrect words, spelling, and punctuation that were not noted in review of the chart prior to signing ED Disposition - Plan for ED Patient: Disposition: Home or Assisted Living Chief Complaint: Chest Pain Diagnosis: Chest pain Instructions: ED Chest Pain Atypical Unkn Cause Referrals: Care Physician,No Primary [Primary Care Provider] - What to do if you have Problems For any increased pain, shortness of breath, bleeding, nausea or vomiting, chest pain, or any unexpected problems, contact your Primary Care Provider. Call [facility] ([phone]) or report to the closest Emergency Room. Call 911 if necessary. 12/29/17 1509 <Electronically signed by Mark Perea DO> Date Mark Perea DO Cosigner Signature (If Indicated): Date CC: No Primary Care Physician CTA CHEST W/WO Observed: 12/29/2017 Status: F Source: [place] CONTRAST 12:38 PM [facility] REPOSITORY [facility] Imaging Services [address] [place] [address] CTA Chest W/WO Contrast MR#: [id number] Acct: [id number] Name: DELVIN ALLEN Rep #: [id number] : 1990 M 27 From: Evan Hendrix MD PCP: Care Physician, No Primary Status: REG ER Study: CTA Chest W/WO Contrast Date of Exam: 12/29/17 Exam# [id number] Ordering Dr: Mark Perea DO STUDY: CTA CHEST REASON FOR EXAM: Male, 27 years old. Chest pain. RADIATION DOSAGE (If Supplied By Facility): CTDIvol = ( 9.52 ) mGy, DLP = ( 286.70 ) mGycm TECHNIQUE: The examination was performed with the intravenous administration of 100 ml of Isovue 370 contrast material. Post-processing of the angiographic images was performed, with multiplanar reformation and 3D reconstruction. Individualized dose optimization techniques were used for this CT. COMPARISON: Comparison is made with prior examination dated December 03, 2016. FINDINGS: Normal enhancement of the main pulmonary artery and right and left pulmonary arteries. Normal enhancement of the bilateral peripheral pulmonary arteries. There is no demonstrated pulmonary embolism. Normal thoracic aorta and visualized great vessels. There is no demonstrated aortic dissection. Normal heart and pericardium. Normal mediastinum. Normal hilar regions. Normal visualized trachea and bronchi. The lungs are well expanded. Normal pulmonary parenchyma. Normal pleura. Normal chest wall structures. Normal osseous structures. Normal visualized upper abdomen. CT/CTA Chest W/WO Contrast IMPRESSION: Normal CTA chest examination, without a demonstrated pulmonary embolism or arterial dissection. Electronically Signed: Evan Hendrix MD at 13:35 EDT Tel [phone], Service support , CC: No Primary Care Physician; Mark Perea DO Project Superintendent: Signed CBC W/DIFF, AUTOMATED Collected: 12/29/2017 Status: F Source: [place] 12:25 PM [facility] REPOSITORY TYPE CODE TESTS RESULT OUT OF RANGE REFERENCE UNITS LAB L100.1000 4.4-11.0 K/mm3 Normal WBC 6.3 LAB L100.1200 4.6-6.2 M/mm3 Normal RBC 5.40 LAB L100.1300 13.0-16.5 g/dl Normal HGB 16.5 LAB L100.1400 40-54 % Normal HCT 47.6 LAB L100.1500 80-94 fL Normal MCV 88.1 LAB L100.1600 27.0-32.0 pg Normal MCH 30.6 LAB L100.1700 32-36 g/gl Normal MCHC 34.7 LAB L100.1810 11.6-14.6 % Normal RDW CV 12.0 LAB L100.1820 35.1-43.9 fl Normal RDW SD 38.1 LAB L100.1900 150-450 K/mm3 Normal PLT 311 LAB L100.2000 6.2-12.0 fl Normal MPV 9.7 LAB L100.2100 47-70 % Low NEUT% 36.6 LAB L100.2200 19-41 % High LY% 53.5 LAB L100.2300 0-10 % Normal MONO% 6.6 LAB L100.2400 0-5 % Normal EO% 1.6 LAB L100.2500 0-1 % High BASO% 1.7 LAB L100.2550 0.0-0.9 % Normal IM GRAN % 0.000 Result Comment: IG% - Immature Granulocytes (promyelocytes, myelocytes and metamyelocytes) > 1% indicates that a LEFT SHIFT is Present. LAB L100.2620 2.0-7.7 X10 3/uL Normal Absolute Neut 2.3 LAB L100.2720 0.83-4.51 X10 3/ul Normal Absolute Lymph 3.39 Performed By: #### L100.0100 #### [facility] [address] [place], [address] BASIC METABOLIC Collected: 12/29/2017 Status: F Source: [place] PROFILE (B[place]) 12:25 PM [facility] REPOSITORY TYPE CODE TESTS RESULT OUT OF RANGE REFERENCE UNITS LAB L501.0100 74-106 mg/dL High GLU 142 Result Comment: Fasting Glucose result greater than or equal to 126 mg/dL suggests DIABETES MELLITUS per A.D.A. criteria. Please note revised GLUCOSE reference range effective 2017. LAB L501.1000 7-18 mg/dL Normal BUN 14 LAB L501.1100 0.70-1.30 mg/dL Normal CREAT,SERUM 1.00 Result Comment: The validity of the calculated GFR AND GFRAA in patients over 70 years has not been determined. Clinical correlation is essential. LAB L501.1110 >60 mL/min Normal EST GFR 94 Result Comment: Non- GFR Calc LAB L501.1115 >60 mL/min Normal EST GFR - AA 114 Result Comment: GFR Calc LAB L501.1255 ml/min Normal Estimated CRCL 115.38 LAB L501.1300 10-20 RATIO BUN/CRE Normal 14.0 LAB L501.2200 8.5-10 mg/dL .1 CA Normal 9.5 LAB L501.5300 136-14 mmol/L 5 NA Normal 138 LAB L501.5600 3.5-5. mmol/L Low 1 K 3.4 LAB L501.5900 98-107 mmol/L CL Normal 100 LAB L501.6100 21.0-3 mmol/L 2.0 CO2 Normal 27.0 LAB L501.6200 5-15 GAP Normal 11 Performed By: #### L500.2500, L501.4010 #### [facility] [address] [place], [address] TROPONIN-I Collected: 12/29/2017 Status: F Source: [place] 12:25 PM [facility] REPOSITORY TYPE CODE TESTS RESULT OUT OF RANGE REFERENCE UNITS LAB L501.4010 <0.045 ng/mL Normal < 0.015 TROPONIN-I Result Comment: TROPONIN-I EXPECTED VALUES <0.045 Negative 0.045 - 0.590 Consistent with Cardiac Damage > OR = 0.600 Critical Value Not every elevated troponin is indicative of KS. These values should be used with clinical judgement in examining the patient's clinical picture for diagnosis. To establish a diagnosis of KS versus myocardial injury, there must be a demonstrated rise and/or fall in the troponin values, in addition to ischemic symptoms, EKG changes, new regional wall motion abnormality, and/or angiographical evidence. PLEASE NOTE: REFERENCE RANGES EDITED 17 Performed By: #### L500.2500, L501.4010 #### [facility] [address] [facility] [place], [address] EMERGENCY DEPARTMENT Observed: 12/23/2017 Status: F Source: [place] SUMMARY 6:48 PM [facility] REPOSITORY [facility] Medical Records Department [address] [place] [address] Emergency Department Summary 12/23/17 1845 MR#: [id number] Acct: [id number] Name: DELVIN ALLEN Rep #: [id number] : 1990 27 From: Rachel Macias MD PCP: Care Physician, No Primary Status: REG ER - ER Visit Summary Date of Service: 12/23/17 Chief Complaint: Left upper extremity pain History of Present Illness: The patient is a 27 M presenting with left upper extremity pain. Patient states that he cut the grass yesterday and has had pain in his left shoulder and elbow since that time. No direct trauma. He also complains of numbness to his fourth and fifth digit on the left hand. This has been ongoing for the past 1.5-2 weeks. Denies fever. Denies weakness. Denies other complaints. Physical Examination: Vitals are stable. Patient is afebrile. Alert no acute distress. HEENT exam is unremarkable. Neck is nontender Lungs are clear and equal bilaterally. Heart is regular rate and rhythm. Extremities left posterior shoulder tenderness, left elbow diffuse tenderness, no warmth or erythema. Paresthesia to left 4th and 5th finger. AFROM. Normal pulses and cap refill Skin is warm and dry. No focal neurologic deficit. Remainder of exam is unremarkable. Emergency Department Course and Treatment: X-ray left shoulder, elbow, hand show no acute process. Patient was given naproxen. He is advised to follow- up with his primary care physician. Advised return to ED if worsening complaints. Disposition: Discharge home Impression: Left shoulder and elbow strain, left ulnar radiculopathy This note was generated with [employer] dictation software. It may contain incorrect words, spelling, and punctuation that were not noted in review of the chart prior to signing ED Disposition - Plan for ED Patient: Chief Complaint: Upper Extremity Injury Instructions: ED Sprain Elbow Prescriptions: Naproxen [Naprosyn] 500 mg PO BID PRN #20 tablet Referrals: Jazmín Oneill MD [STAFF PHYSICIAN] - Care Physician,No Primary [Primary Care Provider] - What to do if you have Problems For any increased pain, shortness of breath, bleeding, nausea or vomiting, chest pain, or any unexpected problems, contact your Primary Care Provider. Call [facility] ([phone]) or report to the closest Emergency Room. Call 911 if necessary. 12/23/171847 <Electronically signed by Rachel Macias MD> Date Rachel Macias MD Cosigner Signature (If Indicated): Date CC: No Primary Care Physician DISCHARGE INSTRUCTION Observed: 12/23/2017 Status: F Source: [place] 6:42 PM [facility] REPOSITORY [facility] Medical Records Department [address] [facility] [place] [address] Discharge Instruction 12/23/171840 MR#: [id number] Acct: [id number] Name: DELVIN ALLEN Rep #: [id number] : 1990 27 From: Rachel Macias MD PCP: Serafin Physician, No Primary Status: REG ER ED Disposition - Plan for ED Patient: Chief Complaint: Upper Extremity Injury Instructions: ED Sprain Elbow Prescriptions: Naproxen [Naprosyn] 500 mg PO BID PRN #20 tablet Referrals: Care Physician,No Primary [Primary Care Provider] - Jazmín Oneill MD [STAFF PHYSICIAN] - What to do if you have Problems For any increased pain, shortness of breath, bleeding, nausea or vomiting, chest pain, or any unexpected problems, contact your Primary Care Provider. Call [facility] ([phone]) or report to the closest Emergency Room. Call 911 if necessary. 12/23/17 1842 <Electronically signed by Rachel Macias MD> Date Rachel Macias MD Cosigner Signature (If Indicated): Date CC: No Primary Care Physician ELBOW MIN 3 VIEWS Observed: 12/23/2017 Status: F Source: [place] 6:01 PM [facility] REPOSITORY [facility] Imaging Services [address] [place] [address] Elbow min 3 Views MR#: [id number] Acct: [id number] Name: DELVIN ALLEN Rep #: [id number] : 1990 M 27 From: Andrés Mcguire MD PCP: Care Physician, No Primary Status: REG ER Study: Elbow min 3 Views Date of Exam: 12/23/17 Exam# [id number] Ordering Dr: Rachel Macias MD STUDY: X-RAY - LEFT ELBOW REASON FOR EXAM: Male, 27 years old. Pain TECHNIQUE: 3 view(s) of the elbow. COMPARISON: None. FINDINGS: There is no evidence of fracture or dislocation. There are no significant degenerative changes. There are no radiodense foreign bodies. RAD/Elbow min 3 Views IMPRESSION: No fracture or dislocation. Electronically Signed: Andrés Mcguire, at 18:21 EDT Tel , Service support , CC: No Primary Care Physician; Rachel Macias MD Project Superintendent: Signed SHOULDER MIN 2 VIEWS Observed: 12/23/2017 Status: F Source: [place] 6:01 PM [facility] REPOSITORY [facility] Imaging Services [address] [place] [address] Shoulder min 2 Views MR#: [id number] Acct: [id number] Name: DELVIN ALLEN Silvina Rep #: [id number] : 1990 M 27 From: Andrés Mcguire MD PCP: Care Physician, No Primary Status: REG ER Study: Shoulder min 2 Views Date of Exam: 12/23/17 Exam# [id number] Ordering Dr: Rachel Macias MD STUDY: X-RAY - LEFT SHOULDER REASON FOR EXAM: Male, 27 years old. Pain TECHNIQUE: 4 view(s) of the shoulder. COMPARISON: 10/16/2014 FINDINGS: There is no evidence of fracture or dislocation. There are no significant degenerative changes. There are no radiodense foreign bodies. RAD/Shoulder min 2 Views IMPRESSION: Negative radiographs of the left shoulder. Electronically Signed: Andrés Mcguire, at 18:22 EDT Tel , Service support , CC: No Primary Care Physician; Rachel Macias MD Project Superintendent: Signed HAND MIN 3 VIEWS Observed: 12/23/2017 Status: F Source: [place] 6:01 PM [facility] REPOSITORY [facility] Imaging Services [address] [place] [address] Hand Min 3 Views MR#: [id number] Acct: [id number] Name: DELVIN ALLEN Rep #: [id number] : 1990 M 27 From: Andrés Mcguire MD PCP: Care Physician, No Primary Status: REG ER Study: Hand Min 3 Views Date of Exam: 12/23/17 Exam# [id number] Ordering Dr: Rachel Macias MD STUDY: X-RAY - LEFT HAND REASON FOR EXAM: Male, 27 years old. Pain TECHNIQUE: 3 view(s) of the hand. COMPARISON: 08/30/2015 FINDINGS: There is a stable old, healed fracture of the fifth metacarpal bone. There is no evidence of acute fracture or dislocation. There are no significant degenerative changes. There are no radiodense foreign bodies. RAD/Hand Min 3 Views IMPRESSION: Stable old, healed fracture of the fifth metacarpal. No acute fracture or dislocation. Electronically Signed: Andrés Mcguire, at 18:25 EDT Tel , Service support , CC: No Primary Care Physician; Rachel Macias MD Project Superintendent: Signed XR CHEST 2 VIEWS Observed: 09/30/2017 Status: F Source: [facility] 6:02 PM [facility] REPOSITORY ORIGINAL XR CHEST 2 VIEWS CLINICAL STATEMENT: Chest pain, history of smoking COMPARISON: None FINDINGS: The cardiomediastinal silhouette is within normal limits. No focal consolidation, pleural effusion, pneumothorax, or vascular congestion is seen. No acute osseous findings. IMPRESSION: No acute radiographic findings. I have personally reviewed the images of this examination and agree with the resident's findings and interpretation. Interpreted By: Sonya Boykin Preliminary Report By: Juan Stiles DO Electronically Signed By: Sonya Boykin Dictated Date: 09/30/2017 6:21:39 PM Prelim Date: 09/30/2017 6:23:12 PM Sign Date: 09/30/2017 6:31:08 PM ORTHOPEDIC VISIT Observed: 09/10/2017 Status: F Source: [place] REPORT 9:16 AM [facility] REPOSITORY [facility] [address] [place] [address] OFFICE VISIT Date of Service: 09/02/17 MR#: [id number] Acct: [id number] Name: DELVIN ALLEN Rep #: [id number] : 1990 Provider: Emre Dewitt DO Age/Sex: 27/M Location: [facility] [place].S[facility] Status: Signed Intake Intake Visit Reasons: Right Hand Chief Complaint: FINGER INFECTION Is patient in pain?: Yes Allergies codeine Allergy (Verified 08/28/17 23:29) Anaphylaxis Penicillins [PCN] Allergy (Verified 08/28/17 23:29) Hives tramadol Allergy (Verified 08/28/17 23:29) Hives Medications Hydrocodone/Acetaminophen [Vicodin Es 7.5-300 mg Tablet] 1 ea PO Q4H PRN PRN 7 Days #12 tab 08/30/17 [Rx] Smz/Tmp Ds [Bactrim Ds] 2 tab PO BID #24 tab 08/30/17 [Rx] PFSH Medical History Hepatitis C (Acute) Social History Smoking Status: Current every day smoker alcohol intake: never HPI Right Hand: Details: DELVIN ALLEN is a 27 year old M here today for a followup on his right index finger, I AND D dos 08/29/17. Patient states that he had a cut at work on 08/17/17 on a car part. He noticed his finger turning red and infected last week. He went to the ED where he had a washout. He was given bactrum which he has been taking. Patient notes that he has pain currently. He has been taking his pain medication which has been slightly helpful. Patient feels like his fingertip is being grabbed by plyers. He has been cleaning his wound twice a day and keeping it covered. His incision is healing. Patient is currently off work. ROS Const Reports system reviewed and no additional complaints, except as docu Eyes Reports system reviewed and no additional complaints, except as docu ENT Reports system reviewed and no additional complaints, except as docu Card Reports system reviewed and no additional complaints, except as docu Resp Reports system reviewed and no additional complaints, except as docu GI Reports system reviewed and no additional complaints, except as docu Reports system reviewed and no additional complaints, except as docu Musc Reports joint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 Patient is L hand dominant. In the ED work-up included T 97.9, heart rate 81, BP 134/81, respiratory rate 14, 98% on room air, CBC with WBC 8.1, hemoglobin 14.7, platelet 293 without marked shift, unremarkable BMP, plain film of the digit no acute bony abnormality, soft tissue swelling of the second digit. Past Medical History Past Medical History (Chronic Problems): Chronic Problems (Last Updated 08/24/17 @ 15:00 by Marisa Beckford) Tobacco use (Chronic) Hepatitis C (Chronic) Drug overdose (Chronic) Agitation (Chronic) Allergies codeine Allergy (Verified 08/28/17 23:29) Anaphylaxis Penicillins [PCN] Allergy (Verified 08/28/17 23:29) Hives tramadol Allergy (Verified 08/28/17 23:29) Hives Home Medications: Ambulatory Orders Medication Instructions Recorded doxycycline hyclate 100 mg capsule 100 mg PO BID 10 Days #20 cap 08/24/17 Surgical History: - - Appendectomy, left hand/surgery. Psychiatric History: No pertinent psych hx Lives: Spouse/ Significant Other Smoking Status: Current every day smoker - Approximately 7 cigarettes per day Tobacco Use: Cigarettes Alcohol: None Drugs: Marijuana - Daily marijuana usage. - *Family History Maternal History Items: Diabetes Paternal History Items: Diabetes Review of Systems Constitutional: Reports: Chills, Fever, Malaise, Fatigue. Denies: Weight Change HEENT: Denies: Head Aches, Sinus Congestion, Sinus Drainage Cardiovascular: Denies: Chest Pain, Palpitations Respiratory: Denies: Cough, Shortness of breath at rest, Sputum production Gastrointestinal: Reports: Nausea. Denies: Abdominal Pain, Vomiting Genitourinary: Denies: Dysuria Musculoskeletal: Reports: Hand Pain, Joint Pain, Joint stiffness, Joint swelling, Joint Tenderness Skin: Reports: Skin Changes, Wounds. Denies: Rash Neurological: Denies: Numbness, Tingling, Focal weakness Psychiatric: Denies: Anxiety, Depression, Homicidal Ideations, Suicidal Ideations Hematologic/ Lymphatic: Denies: Easy Bruising, Easy Bleeding VTE Information - Inpt Only VTE Present on Admission: No VTE Mechan Device Prophylaxis: SCD's VTE Pharm Prophylaxis ordered?: No Reason prophylaxis not ordered:: Treatment Not Indicated Patient Problems: Active and Suspected Problems (Last Updated 08/24/17 @ 15:00 by Marisa Beckford) Cellulitis of right index finger (Acute) Subjective: Seated upright in the ED bed, no acute distress, does have considerable discomfort with manipulation of finger. Objective: Physical Examination: General: awake, alert, oriented x 3 and cooperative, seated upright in the ED bed in no apparent distress until manipulation of R index finger. Skin: normal color, turgor, no icterus, cyanosis, several body tattoos, R index finger w/ edema, fluctuance, erythema primarily dorsal mid-finger region, inability to flex, warm to touch. HEENT: AT/NC, EOMI, PERRLA, mildly dry MM, no carotid bruits or JVD noted. Lungs: CTA bilaterally, moderate effort, mild decrease BL bases, no rales, ronchi or wheezing. Heart: Regular rate and rhythm; no gallop, rub audible. Abdomen: soft, NTTP, ND, normal BS, no HSM. Extremities: no cyanosis, clubbing, see skin. Neurological: patient awake, alert, oriented x 3; cognitive function intact; pupils equally reactive to light and accomodation; cranial nerves II-XII grossly normal, moving all 4 extremities except limited RUE secondary to pain w/ finger, no focal deficits, strength moderately globally decreased secondary to acute presentation. Psychiatric: affect appears normal, no acute evidence of depressive or anxiety feelings. - Physical Exam Vital Signs Temp Pulse Resp BP Pulse Ox 98.7 F 61 18 112/63 97 08/29/17 00:29 08/29/17 00:29 08/29/17 00:29 08/29/17 00:29 08/29/17 00:29 Oxygen Delivery Method Room Air Weight: 172 lb 6.424 oz Body Mass Index (BMI) 21.5 Laboratory Tests Past 24 Hrs WBC 8.1 RBC 4.63 Hgb 14.7 Hct 42.6 MCV 92.0 MCH 31.7 MCHC 34.5 Assessment/Plan Active and Suspected Problems (Last Updated 08/24/17 @ 15:00 by Marisa Beckford) Cellulitis of right index finger (Acute) The patient is a 27 y/o M w/ PMHx: Tobacco use, Chronic Hepatitis C who presents to the [facility] ED on 08/29/17 with history of R index finger abrasion/cut 2 weeks prior, s/p recent I+D abscess with continued edema, pain, erythema despite abx. (1) RUE Index Finger Cellulitis, ? Abscess: Will admit to [facility], maintain on IV vancomcyin, plan repeat CBC in AM, continue affected extremity elevation above heart when seated and in bed, monitor erythema outline with VS checks, maintain NPO status pending Orthopedic Surgery, Dr. Dewitt evaluation, consulted, pending. Pain regimen, anti-emetic regimen PRN. IV scheduled toradol x 3 doses. (2) Tobacco Abuse: Encouraged cessation, inpatient consultation per RT, NR if desired. (3) Chronic Hepatitis C: Advised continuation follow-up with PCP and treatment. (4) DVT Prophylaxis: SCDs, defer chemoprophylaxis given possible OR needs. Code Visit Inpatient E AND M: [id number] Init Hosp L2 08/29/17 0212 <Electronically signed by Yanet Green > Date Yanet Green Cosigner Signature: Date (if applicable) CC: No Primary Care Physician; Yanet Green Signed EMERGENCY DEPARTMENT Observed: 08/29/2017 Status: F Source: [place] SUMMARY 12:21 AM [facility] REPOSITORY [facility] Medical Records Department [address] [place] [address] Emergency Department Summary 08/29/17 0018 MR#: [id number] Acct: [id number] Name: DELVIN ALLEN Silvina Rep #: [id number] : 1990 27 From: Alfred Camacho DO PCP: Care Physician, No Primary Status: REG ER - ER Visit Summary Date of Service: 08/29/17 Chief Complaint: Redness and swelling to right index finger] History of Present Illness: The patient is a 27 M [presents to the emergency department with complaint of redness and swelling to his right index finger at that has been present for over a week. Patient states that he was seen in the emergency department about 5 or 6 days ago and had an incision and drainage of an abscess to the finger. Patient states that initially he hurt his finger while at work he brushed it against a metal edge lacerating it. The wound subsequently got infected. Patient states that after his incision and drainage in the emergency department he was not started on antibiotics however he was told [facility]. Patient followed up several days later and was started on doxycycline for suspected worsening infection. Patient is scheduled to follow- up with health communications specialist in 5 days. Patient has pain with range of motion.] Physical Examination: [Right index finger-patient has soft tissue swelling over the dorsum of the middle phalanx. He has pain with flexion extension at the PIP and DIP. Patient has tenderness over the extensor tendon. Neurovascular intact distally.] No obvious fluctuance noted over the wound. Test Results: [X-rays of the right index finger interpreted by myself as no acute fractures and no foreign bodies noted. No evidence for osteomyelitis.] CBC with differential obtained showed a normal white blood cell count. Chemistries were unremarkable. Emergency Department Course and Treatment: [Patient was started on clindamycin IV.] Treatment Plan: [Admit for IV antibiotics and evaluation by orthopedics.] Disposition: [Admit] Impression: [Right index finger abscess/cellulitis-failed outpatient therapy] This note was generated with [employer] dictation software. It may contain incorrect words, spelling, and punctuation that were not noted in review of the chart prior to signing ED Disposition - Plan for ED Patient: Chief Complaint: Abscess Referrals: Care Physician,No Primary [Primary Care Provider] - What to do if you have Problems For any increased pain, shortness of breath, bleeding, nausea or vomiting, chest pain, or any unexpected problems, contact your Primary Care Provider. Call [facility] ([phone]) or report to the closest Emergency Room. Call 911 if necessary. 08/29/17 0021 <Electronically signed by Alfred Camacho DO> Date Alfred Camacho DO Cosigner Signature (If Indicated): Date CC: No Primary Care Physician CBC W/DIFF, AUTOMATED Collected: 08/28/2017 Status: F Source: [place] 11:51 PM [facility] REPOSITORY TYPE CODE TESTS RESULT OUT OF RANGE REFERENCE UNITS LAB L100.1000 4.4-11.0 K/mm3 Normal WBC 8.1 LAB L100.1200 4.6-6.2 M/mm3 Normal RBC 4.63 LAB L100.1300 13.0-16.5 g/dl Normal HGB 14.7 LAB L100.1400 40-54 % Normal HCT 42.6 LAB L100.1500 80-94 fL Normal MCV 92.0 LAB L100.1600 27.0-32.0 pg Normal MCH 31.7 LAB L100.1700 32-36 g/gl Normal MCHC 34.5 LAB L100.1810 11.6-14.6 % Normal RDW CV 12.3 LAB L100.1820 35.1-43.9 fl Normal RDW SD 40.7 LAB L100.1900 150-450 K/mm3 Normal PLT 293 LAB L100.2000 6.2-12.0 fl Normal MPV 9.1 LAB L100.2100 47-70 % Low NEUT% 43.6 LAB L100.2200 19-41 % High LY% 45.0 LAB L100.2300 0-10 % Normal MONO% 7.6 LAB L100.2400 0-5 % Normal EO% 2.7 LAB L100.2500 0-1 % Normal BASO% 1.0 LAB L100.2550 0.0-0.9 % Normal IM GRAN % 0.100 Result Comment: IG% - Immature Granulocytes (promyelocytes, myelocytes and metamyelocytes) > 1% indicates that a LEFT SHIFT is Present. LAB L100.2620 2.0-7.7 X10 3/uL Normal Absolute Neut 3.5 LAB L100.2720 0.83-4.51 X10 3/ul Normal Absolute Lymph 3.66 Performed By: #### L100.0100 #### [facility] [address] [place], [place], [id number] BASIC METABOLIC Collected: 08/28/2017 Status: F Source: [place] PROFILE (BMP) 11:51 PM [facility] REPOSITORY TYPE CODE TESTS RESULT OUT OF RANGE REFERENCE UNITS LAB L501.0100 74-106 mg/dL Normal GLU 98 Result Comment: Please note revised GLUCOSE reference range effective 2017. LAB L501.1000 7-18 mg/dL Normal BUN 10 LAB L501.1100 0.70-1.30 mg/dL Normal CREAT,SERUM 0.87 Result Comment: The validity of the calculated GFR AND GFRAA in patients over 70 years has not been determined. Clinical correlation is essential. LAB L501.1110 >60 mL/min Normal EST GFR 110 Result Comment: Non- GFR Calc LAB L501.1115 >60 mL/min Normal EST GFR - AA 132 Result Comment: GFR Calc LAB L501.1255 ml/min Normal Estimated CRCL 138.57 LAB L501.1300 10-20 RATIO BUN/CRE Normal 11.4 LAB L501.2200 8.5-10 mg/dL .1 CA Normal 8.7 LAB L501.5300 136-14 mmol/L 5 NA Normal 140 LAB L501.5600 3.5-5. mmol/L 1 K Normal 3.8 LAB L501.5900 98-107 mmol/L CL Normal 103 LAB L501.6100 21.0-3 mmol/L 2.0 CO2 Normal 32.0 LAB L501.6200 5-15 GAP Normal 5 Performed By: #### L500.2500 #### [facility] [address] [place], [address] FINGER(S) MIN 2 VIEWS Observed: 08/28/2017 Status: F Source: [place] 11:40 PM [facility] REPOSITORY [facility] Imaging Services [address] [place] [address] Finger(s) Min 2 Views MR#: [id number] Acct: [id number] Name: DELVIN ALLEN Rep #: [id number] : 1990 M 27 From: Rusty Dominguez PCP: Care Physician, No Primary Status: REG ER Study: Finger(s) Min 2 Views Date of Exam: 08/28/17 Exam# [id number] Ordering Dr: Alfred Camacho DO STUDY: X-RAY - RIGHT HAND, ATTENTION SECOND FINGER REASON FOR EXAM: Male, 27 years old. Pain TECHNIQUE: 3 view(s) of the finger were obtained. COMPARISON: None. FINDINGS: Normal metacarpal head. Normal metacarpophalangeal joint. Normal proximal phalanx. Normal middle phalanx. Normal distal phalanx. Normal proximal interphalangeal joint. Normal distal interphalangeal joint. There is soft tissue swelling of the second digit. RAD/Finger(s) Min 2 Views IMPRESSION: There is NO acute bony abnormality. There is soft tissue swelling of the second digit. Electronically Signed: Rusty Dominguez MD at 0:50 EDT , Service support , CC: No Primary Care Physician; Alfred Camacho DO Project Superintendent: Signed URGENT CARE VISIT Observed: 08/24/2017 Status: F Source: [place]U REPORT 3:27 PM [facility] REPOSITORY [facility] [address] [place] [address] [address] [place] [address] OFFICE VISIT Date of Service: 08/24/17 MR#: [id number] Acct: [id number] Name: DELVIN ALLEN Rep #: [id number] : 1990 Provider: Andrés TORRE Age/Sex: 27/M Location: [facility] [place] Status: Signed Intake Vital Signs08/24/17 Height 6 ft 4 in Intake Visit Reasons: ED FOLLOW UP Chief Complaint: RIF recheck Is patient in pain?: No Allergies codeine Allergy (Verified 08/24/17 14:59) Anaphylaxis Penicillins [PCN] Allergy (Verified 08/24/17 14:59) Hives tramadol Allergy (Verified 08/24/17 14:59) Hives Medications doxycycline hyclate 100 mg capsule 100 mg PO BID 10 Days #20 cap 08/24/17 [Rx Confirmed 08/24/17] PFSH Medical History Hepatitis C (Acute) Social History Smoking Status: Current every day smoker alcohol intake: never HPI HPI Chief Complaint: RIF recheck Details: DELVIN ALLEN, is a 27 M who presents to the office today for follow-up status post laceration to right index finger on August 18, 2017. Patient states while at work cutting his finger on product while performing his duties, stating he attempted to care for himself thereafter. On August 23 he noted the discomfort became intolerable as well as increased erythema and swelling circumferential to the open wound site therefore reported to [facility]'s emergency room where he states simple I AND D procedure was performed with scant exudate removed but no foreign body noted. He is unsure when his last tetanus diphtheria immunization was updated. He notes no loss of sensation or strength or function distal to the wound site though notes the pain is moderate aching 7 out of 10 at the same aggravated to touch alleviated minimally with rest. He notes no complaints of fever, chills, sweats. He notes no other associated symptoms and no other alleviating or aggravating factors. ROS Const Constitutional: No excessive sweating, abnormal sleep pattern, chills, fever(s), night sweats or body ache ENT ENT: No abnormal hearing Cardio Cardiology: No excessive sweating Musc Musculoskeletal: Positive for limited range of motion and joint swelling; no joint pain Skin Skin: Positive for wounds Neuro Neurology: No abnormal hearing, abnormal speech or abnormal movements Psych Psychiatric: No abnormal sleep pattern Endo Endocrine: No excessive sweating Exam Const General: cooperative, healthy appearing, no acute distress, comfortable Nutritional Appearance: average body habitus Orientation: alert, awake, oriented x3 HENMT Head: normal to inspection Ears: hearing grossly normal bilaterally Nose: external nose normal Eyes General: appearance normal, both eyes and all related structures Neck Neck: normal visual inspection, full ROM, no lymphadenopathy, no meningeal signs, supple Lymphatic: no lymphadenopathy noted Chest Chest palpation AND inspection: normal inspection of the chest Resp Effort AND Inspection: normal respiratory effort, able to speak in complete sentences, symmetric chest movement, no cough Cardio Rate: regular rate Pulses: radial pulses present GI Inspection: normal to inspection Palpation: soft Skin General: no rashes or lesions noted Neuro General: alert, awake, oriented x3, gait normal Cognition: normal cognition Speech: speech normal Gait: normal gait Motor: muscle tone normal throughout Sensory Exam: no sensory deficits noted Extrem General: normal to inspection Psych Appearance: grossly normal Mental Status: mental status grossly normal Mood: congruent mood Affect: normal affect Speech and Movement: speech and movement normal Attitude: cooperative Thought Process: normal Thought Content: normal Judgment: judgment good Assessment AND Plan Problems 1. Abscess of finger, right L02.511 Plan Return to work restrictions beginning today as follows: No use right hand and keep wound clean dry and covered at work at all times. Twice daily wound care as instructed today. C9 submitted today for wound management referral. Doxycycline as prescribed today. [facility] with [facility] on an as-needed basis only, or follow-up with the [facility] within the next week if unable to get a wound management appointment. Patient states acknowledging understanding all the above. This note was generated with eventblimpation software. It may contain incorrect words, spelling, and punctuation that were not noted in checking the note before signing. Medications New: Coding Level of Care Code Off vis,new,level 3 Diagnoses Abscess of finger, right L02.511 08/24/17 1527 <Electronically signed by Andrés TORRE> Date Andrés TORRE Cosigner Signature: Date (if applicable) CC: EMERGENCY DEPARTMENT Observed: 08/23/2017 Status: F Source: [place] SUMMARY 7:10 PM [facility] REPOSITORY [facility] Medical Records Department [address] [place] [address] Emergency Department Summary 08/23/17 1907 MR#: [id number] Acct: [id number] Name: DELVIN ALLEN Rep #: [id number] : 1990 27 From: Eamon Barkley MD PCP: Care Physician, No Primary Status: REG ER - ER Visit Summary Date of Service: 08/23/17 Chief Complaint: Pain and swelling right index finger secondary to injury that occurred on August 17 at work History of Present Illness: The patient is a 27 M is right- handed. Presents with injury to the right index finger. This occurred at work. On the radial side over the middle phalanx. He complains of pain. He denies paresthesia, anesthesia or motor weakness. He denies fever, chills night sweats. He denies decreased range of motion. Physical Examination: Vital signs are remarkable elevated blood pressure 130/71. Patient has small subcutaneous abscess over the middle phalanx radial side of the right index finger. There is no lymphangitis. There is no cellulitis. There is no epitrochlear lymphadenopathy. There is no pain to palpation the extensor indices tendon. Test Results: None Emergency Department Course and Treatment: Patient was informed he needs an incision and drainage of the abscess. The digit was anesthetized 1% lidocaine by digital block. The area was cleansed. An incision was made with a 15 blade. Small purulent material was expressed. Blunt dissection was undertaken and cavity was irrigated. Treatment Plan: This is a small simple obtains abscess and patient is an immune suppressed or diabetic and there is no's cellulitis antibiotics are not indicated per the literature Disposition: Follow-up in 2 days at [facility] Impression: Subcutaneous abscess right index finger secondary to laceration This note was generated with [employer] dictation software. It may contain incorrect words, spelling, and punctuation that were not noted in review of the chart prior to signing ED Disposition - Plan for ED Patient: Disposition: Home or Assisted Living Chief Complaint: Wound Instructions: ED Abscess IandD Referrals: Care Physician,No Primary [Primary Care Provider] - [facility] [facility] [GROUP OF PHYSICIANS] - 2 Days for wound check What to do if you have Problems For any increased pain, shortness of breath, bleeding, nausea or vomiting, chest pain, or any unexpected problems, contact your Primary Care Provider. Call [facility] ([phone]) or report to the closest Emergency Room. Call 911 if necessary. 08/23/170 <Electronically signed by Eamon Barkley MD> Date Eamon Barkley MD Cosigner Signature (If Indicated): Date CC: [facility]; No Primary Care Physician PROGRESS Observed: 08/17/2017 Status: COMPLETED Source: [place] 2:58 PM [facility] REPOSITORY HNO ID: [id number] Author: Arslan Gates Service: (none) Author Type: Physician Type: Progress Notes Filed: 08/17/2017 3:23 PM Note Text: Patient presents with: Nausea AND Vomiting Cough HPI: Sent home from work sick today. Positive symptoms: Cough, Nasal Congestion, Rhinorrhea, nausea, Vomiting, headache, Diarrhea, hot flashes, light-headed at work, Negative symptoms: fever, OTC: ibuprofen PAST MEDICAL HISTORY Diagnosis Date - Hepatitis C MEDICATIONS: No current outpatient prescriptions on file. No current facility-administered medications for this visit. ALLERGIES: ALLERGIES Allergen Reactions - Penicillins Hives - Ultram [Tramadol Hc* Rash, Itching VITALS: BP 120/90 Pulse 68 Temp 36 ?C (96.8 ?F) (Left Tympanic) Resp 14 Wt 73.9 kg (163 lb) SpO2 99% PHYSICAL EXAM: GEN: mildly ill appearing HEENT: PERRL, EOMI, conjunctiva clear Ears: canals clear, TMs without erythema, bulge, or effusion Sinuses: non-tender frontal sinus, non-tender maxillary sinuses Throat: moist mucous membranes, no erythema, no exudate Neck: supple, no thyromegaly, no lymphadenopathy HEART: regular rate and rhythm, no murmurs LUNGS: clear to auscultation, no wheezes or crackles, no increased WOB ABD: Soft, non-distended, non-tender, no masses EXT: Multiple tattoos. <cm subcutaneous rounded mass right forearm below the antecubital fossa, <1cm soft smooth mobile subcutaneous mass left mid forearm. No epitrochlear nodes. ASSESSMENT/PLAN: 1. Gastroenteritis - ICD9: 558.9, ICD10: K52.9 Hydration with electrolyte containing fluids encouraged. Left arm subcutaneous mass consistent with lipoma, right forearm lipoma vs lymph node appear benign. Arslan Gates MD CNOV Observed: 08/17/2017 Status: COMPLETED Source: [place] 2:45 PM [facility] REPOSITORY Office Visit ([facility]) DELVIN ALLEN ([id number]) 1990 M Date Time Provider Department 08/17/17 2:45 PM ARSLAN GATES [facility] During your visit today, we recorded the following information about you: Temperature Pulse Respiration Blood pressure 96.8 degrees 68/minute 14/minute 120/90 Weight 73.9 kg Arslan Gates MD 08/17/2017 3:23 PM Signed Patient presents with: Nausea ANDamp; Vomiting Cough HPI: Sent home from work sick today. Positive symptoms: Cough, Nasal Congestion, Rhinorrhea, nausea, Vomiting, headache, Diarrhea, hot flashes, light-headed at work, Negative symptoms: fever, OTC: ibuprofen PAST MEDICAL HISTORY Diagnosis Date - Hepatitis C MEDICATIONS: No current outpatient prescriptions on file. No current facility-administered medications for this visit. ALLERGIES: ALLERGIES Allergen Reactions - Penicillins Hives - Ultram [Tramadol Hc* Rash, Itching VITALS: BP 120/90 Pulse 68 Temp 36 ?C (96.8 ?F) (Left Tympanic) Resp 14 Wt 73.9 kg (163 lb) SpO2 99% PHYSICAL EXAM: GEN: mildly ill appearing HEENT: PERRL, EOMI, conjunctiva clear Ears: canals clear, TMs without erythema, bulge, or effusion Sinuses: non-tender frontal sinus, non-tender maxillary sinuses Throat: moist mucous membranes, no erythema, no exudate Neck: supple, no thyromegaly, no lymphadenopathy HEART: regular rate and rhythm, no murmurs LUNGS: clear to auscultation, no wheezes or crackles, no increased WOB ABD: Soft, non-distended, non-tender, no masses EXT: Multiple tattoos. ANDlt;cm subcutaneous rounded mass right forearm below the antecubital fossa, ANDlt;1cm soft smooth mobile subcutaneous mass left mid forearm. No epitrochlear nodes. ASSESSMENT/PLAN: 1. Gastroenteritis - ICD9: 558.9, ICD10: K52.9 Hydration with electrolyte containing fluids encouraged. Left arm subcutaneous mass consistent with lipoma, right forearm lipoma vs lymph node appear benign. Arslan Gates MD Referring Provider: SELF [200] Allergies As of Date: 08/17/2017 Noted Allergy Reaction PENICILLINS 11/02/2015 4 - Hives ULTRAM (TRAMADOL HCL) 08/19/2012 2 - Rash 9 - Itching Date Reviewed: 08/17/2017 Reviewed by: Analy Mead Ma - Fully Assessed Reason for Visit: Nausea AND Vomiting [237] Cough [28] Primary Visit Diagnosis:Gastroenteritis [K52.9] Problem List As Of Date 08/17/2017 Noted Resolved Closed fracture of 5th metacarpal [S62.308A] INVALID FOR* Medications Discontinued During This Encounter promethazine (PHENERGAN) 25 mg tablet 12 t* 0 05/26/2016 08/17/2017 Route: ORAL Sig: Take 1 tablet by mouth every 6 hours as needed. Disc: Reason for discontinue is not on file. sucralfate (CARAFATE) 1 gram tablet 28 t* 0 05/26/2016 08/17/2017 Route: ORAL Sig: Take 1 tablet by mouth before meals and at bedtime. Disc: Reason for discontinue is not on file. Letter [facility] Department of Urgent Care [address], [place] [address] 08/17/2017 Delvin Allen CC# [id number] [address] [address] TO WHOM IT MAY CONCERN: This is to confirm that Delvin Allen had an appointment and was seen at the [facility] in the Department of Urgent Care by Arslan Gates MD on 08/17/2017 for illness. Sincerely , Arslan Gates MD Encounter Status:Closed by ARSLAN GATES MD on 08/17/17 ALLERGIES ALLERGIES DATE TYPE / NAME / CODE REACTION SEVERITY SOURCE CODE 06/25/2018 Drug Penicillins/F0010 Hives Unknown [place] Allergy/41 83334(RXNORM) [facility] [id number]([facility]) Repository 06/25/2018 Drug codeine/[id number] Anaphylaxis Unknown [place] Allergy/41 0(RXNORM) [facility] [id number]([facility]) Repository 06/25/2018 Drug tramadol/[id number] Hives Unknown [place] Allergy/41 80(RXNORM) [facility] [id number]( Hospital OMED CT) Repository 11/02/2015 Drug PENICILLINS HIVES [facility] Class/[address] [place] [address](SNOM Repository ED CT) 08/19/2012 DRUG TRAMADOL HCL RASH [facility] INGREDI/[address] [place] [id number]( Repository OMED CT) ENCOUNTERS ENCOUNTERS ADMIT/DISCHARGE ACCOUNT NUMBER ADMITTING ENCOUNTER LOCATION SOURCE CLASS 06/25/2018/06/25/19 [id number] Emergency Yu [place] [facility] ding:ED Repository 06/17/2018/06/17/19 [id number] Emergency [place] [facility] ding:ED Repository 05/26/2018/05/26/20 [id number] Emergency [address] ding:ED Repository 02/19/2018/02/20/20 [id number] Emergency [address] ding:ED Repository 01/07/2018/01/08/20 [id number] Emergency [address] ding:ED Repository 12/29/2017/12/30/19 [id number] Emergency [place] ding:ED Repository 12/23/2017/12/24/19 [id number] Emergency [address] ding:ED Repository 09/30/2017/10/01/19 [id number] Emergency BBuilding:TALIA Garcia [address] [place] [address] Repository 09/02/2017/09/03/19 [id number] Ambulatory BMSBuilding: Yu 18 BMS.[facility]ly [facility] Repository 08/29/2017/08/31/19 [id number] White, Inpatient Yu Yu [address] Encounter [facility] ding:CT8Olie Repository : HG898Miv: 1 08/29/2017 [id number] White, Ambulatory BMSBuilding: Yu [place] BMS.Counts include 234 beds at the [facility] Repository 08/29/2017 [id number] [place], Ambulatory BMSBuilding: Yu [place] BMS.CF.[facility]ly [facility] Repository 08/29/2017 [id number] White, Ambulatory BMSBuilding: Yu [place] BMS..[facility] Repository 08/29/2017 [id number] White, Ambulatory BMSBuilding: Yu [place] BMS.WIP [facility] [place] 08/24/2017/08/25/19 [id number] Ambulatory BMSBuilding: Yu 18 BMS.NOW [facility] [place] 08/23/2017/08/24/19 [id number] Emergency [facility] ding:ED Repository 08/17/2017/08/19/19 [id number] [address] Repository PAYERS PAYERS ENCOUNTER GUARANTOR PAYER SUBSCRIBER SOURCE 06/25/2018 DELVIN Cool Primary DELVIN Longoster [id number] Insurance:CARESOURCEP TINNEYDOB: [facility] Number: [id number] [address]Qzu: [id number] Repository Date:2018-06-25 O () [address]ATTN: [place] [address]RJ: 06/25/2018 Secondary NOT GIVENUNK Yu Insurance:SELF PAY [facility] Number: Effective Repository Date:2018-06-25 06/17/2018 DELVIN Cool Primary DELVIN Nicholas [id number] Insurance:CARESOURCEP TINNEYDOB: [facility] Number: [id number]-Lea General Hospital [address]Adf: [id number] Repository Date:2018-06-17P O () [address]ATTN: [place] [address]LQ: 06/17/2018 Secondary NOT GIVENUNK [place] Insurance:SELF PAY [facility] Number: Effective Repository Date:2018-06-17 05/26/2018 DELVIN Cool Primary DELVIN Longoster [id number] Insurance:CARESOURCEP TINNEYDOB: [facility] Number: [id number]-Lea [facility] Hospital [address]Zxg: [id number] Repository Date:2018-05-26 O () [address]ATTN: [place] [address]BX: 05/26/2018 Secondary NOT GIVENUNK Yu Insurance:SELF PAY [facility] Number: Effective Repository Date:2018-05-26 02/19/2018 DELVIN Cool Primary DELVIN Cool [place] [id number] Insurance:CARESOURCEP TINNEYDOB: [facility] Number: [id number]-Lea General Hospital [address]Xln: [id number] Repository Date:2018-02-19P O (HP) [address]ATTN: [place] [address]OA: 02/19/2018 Secondary NOT GIVENUNK [place] Insurance:SELF PAY [facility] Number: Effective Repository Date:2018-02-19 01/07/2018 DELVIN Cool Primary DELVIN Cool [place] [id number] Insurance:CARESOURCEP TINNEYDOB: [facility] Number: [id number]-Lea General Hospital [address]Uvc: [id number] Repository Date:2018-01-07P O () [address]ATTN: [place] [address]XD: 01/07/2018 Secondary NOT GIVENUNK Yu Insurance:SELF PAY [facility] Number: Effective Repository Date:2018-01-07 12/29/2017 DELVIN J Primary DELVIN Cool Yu [id number] Insurance:CARESOURCEP TINNEYDOB: [facility] Number: [id number]-Lea General Hospital [address]Mwj: [id number] Repository Date:2017-12-29P O (HP) [address]ATTN: [place] [address]JI: 12/29/2017 Secondary NOT GIVENUNK [place] Insurance:SELF PAY [facility] Number: Effective Repository Date:2017-12-29 12/23/2017 DELVIN J Primary DELVIN J Yu [id number] Insurance:CARESOURCEP TINNEYDOB: [facility] Number: [id number]-Lea General Hospital [address]Hsn: [id number] Repository Date:2017-12-23P O HP) [address]ATTN: [place] [address]SR: 12/23/2017 Secondary NOT GIVENUNK Yu Insurance:SELF PAY [facility] Number: Effective Repository Date:2017-12-23 09/30/2017 DELVIN J Primary DELVIN Cool [facility] TINNEYDOB: Insurance:CARESOURCE TINNEYDOB: [facility] [id number] MEDICAIDPolicy [id number] Repository JOSEPH Ruby Number: [address], [id number] [address] Date:2016-12-27 [place] [address]Xyl: [id number] @[facility]: Name:XPO Box (HP)Tel: (000) [address] [place] [address] [phone] (WP) (HP)Tel: [phone]: [phone] 09/02/2017 DELVIN Cool Primary DELVIN Cool Yu [id number] Insurance:CARESOURCEP TINNEYDOB: [facility] Number: [id number]-Lea General Hospital [address]Jku: [id number] Repository Date:2017-09-02P O (HP) [address]ATTN: [place] [address]UB: 09/02/2017 Secondary NOT GIVENUNK Yu Insurance:SELF PAY [facility] Number: Effective Repository Date:2017-09-02 08/29/2017 DELVIN J Primary DELVIN J [place] [id number] Insurance:CARESOURCEP TINNEYDOB: [facility] Number: [id number]-Lea General Hospital [address]Xpo: [id number] Repository Date:2017-08-28P O (HP) [address]ATTN: [place] [address]LY: 08/29/2017 Secondary NOT GIVENUNK Yu Insurance:SELF PAY [facility] Number: Effective Repository Date:2017-08-28 08/29/2017 DELVIN J Primary DELVIN J [place] [id number] Insurance:CARESOURCEP TINNEYDOB: [facility] Number: [id number]-Lea General Hospital [address]Imh: [id number] Repository Date:2017-08-28P O (HP) [address]ATTN: [place] [address]CN: 08/29/2017 Secondary NOT GIVENUNK [place] Insurance:SELF PAY [facility] Number: Effective Repository Date:2017-08-29 08/29/2017 DELVIN J Primary DELVIN J Yu [id number] Insurance:CARESOURCEP TINNEYDOB: [facility] Number: [id number]-Lea General Hospital [address]Tvq: [id number] Repository Date:2017-08-28P O (HP) [address]ATTN: [place] [address]TX: 08/29/2017 Secondary NOT GIVENUNK Yu Insurance:SELF PAY [facility] Number: Effective Repository Date:2017-08-29 08/29/2017 DELVIN J Primary DELVIN J [place] [id number] Insurance:CARESOURCEP TINNEYDOB: [facility] Number: [id number]-Lea General Hospital [address]Uin: [id number] Repository Date:2017-08-28P O (HP) [address]ATTN: [place] [address]JL: 08/29/2017 Secondary NOT GIVENUNK Yu Insurance:SELF PAY [facility] Number: Effective Repository Date:2017-08-29 08/29/2017 DELVIN J Primary DELVIN J Yu [id number] Insurance:CARESOURCEP TINNEYDOB: [facility] Number: [id number]-Lea General Hospital [address]Qxk: [id number] Repository Date:2017-08-28 O (HP) [address]ATTN: [place] [address]CJ: 08/29/2017 Secondary NOT GIVENUNK [place] Insurance:SELF PAY [facility] Number: Effective Repository Date:2017-08-29 08/24/2017 DELVIN J Primary DELVIN J [place] [id number] Insurance:CARESOURCEP TINNEYDOB: [facility] Number: [id number]-Lea General Hospital [address]Afa: [id number] Repository Date:2017-08-24 O () [address]ATTN: [place] [address]BL: 08/24/2017 Secondary NOT GIVENUNK [place] Insurance:SELF PAY [facility] Number: Effective Repository Date:2017-08-24 08/23/2017 DELVIN J Primary DELVIN J [place] [id number] Insurance:[facility] TINNEYDOB: [facility] [id number]-Lea General Hospital [address]Wmk: Number: Repository [id number] (HP) Date: [facility] [place], [place] [address]QB: 08/23/2017 Secondary DELVIN J [place] Insurance:CARESOURCEP TINNEYDOB: [facility] Number: [id number] [id number] Repository Date:2017-08-23 O [address]ATTN: [place] [address]UW: 08/23/2017 Tertiary NOT GIVENUNK Yu Insurance:SELF PAY [facility] Number: Effective Repository Date:2017-08-23"
== END 2018-05-26 10:31 | disposition home or self-care (01) ==
LOC: ED 10:07
PROVIDERS: Emergency Provider Emergency Medicine
DX: S05.8X1A Other injuries of right eye and orbit, initial encounter (principal); H57.89 Other specified disorders of eye and adnexa; X58.XXXA Exposure to other specified factors, initial encounter; Y93.9 Activity, unspecified; Y92.9 Unspecified place or not applicable
CPT/HCPCS: 99283

== ENCOUNTER 2018-06-17 14:19 | Emergency (ER) | payer MEDICAID, SELFPAY ==
[2018-06-17 14:19] VITALS: BP 125/63; PULSE 79; RESP 14; TEMP 36.6; O2SAT 100; BMI 19.7
[2018-06-17 14:28] VITALS: O2SAT 100
--- NOTE | 2018-06-17 14:28 | RAD_ITS ---
STUDY: X-RAY CHEST REASON FOR EXAM: Male, 28 years old. 2 day history of hemoptysis TECHNIQUE: PA and lateral views of the chest. COMPARISON: Comparison is made with prior study dated January 18, 2017. FINDINGS: Hyperinflation. The lungs are clear. There is no demonstrated pleural abnormality. Normal size heart. Normal mediastinum and jaime. Normal visualized pulmonary arteries. Normal visualized aortic arch and descending thoracic aorta. Normal visualized thoracic spine. Normal visualized ribs, clavicles, and shoulders. There is no demonstrated abnormality of the visualized soft tissue structures of the upper abdomen. RAD/Chest PA and Lateral IMPRESSION: Hyperinflation. Electronically Signed: Evan Hendrix MD at 14:45 EST Tel [phone], Service support ,
[2018-06-17 14:29] VITALS: BP 125/63; PULSE 79; RESP 14; TEMP 36.6; O2SAT 100
--- NOTE | 2018-06-17 15:13 | ED.VISSUMM ---
- ER Visit Summary Date of Service: 06/17/18 Chief Complaint: Coughing up blood History of Present Illness: The patient is a 28 M who is a smoker of 1/2 pack/day since age of 10 presents with runny nose, congestion cough that is blood streaked. He denies fever or chills. He denies leg pain, swelling discoloration. He denies history of PE or DVT and has no risk factors. He denies any visual, ocular auditory symptoms. He does complain of sore throat and slight horsed voice. He does report chest discomfort with coughing only. He denies any GI or symptoms. He does complain of myalgias. He also reports generalized weakness. Physical Examination: Vital signs noted and unremarkable. Patient arrived with pillow and blanket. Head is atraumatic normocephalic. Pupils are equal round reactive. Extraocular muscles are intact. TMs are pearly white with landmarks noted. Nares patent with clear drainage. Posterior pharynx without erythema or exudate. Uvula is midline. There is no dysphonia or dysphasia. Trachea is midline. There is no stridor with auscultation of the neck. Heart is regular without murmur, gallop or rub. S1 and S2 are normal. Lungs are clear to auscultation with good movement of air bilaterally. There is no asymmetry, swelling, discoloration, leg vein distention, palpable cords or tenderness along the distribution of the deep venous system. Test Results: Two-view chest x-ray reveals minimal chronic changes with no evidence of pneumothorax, infiltrate or any abnormality. Emergency Department Course and Treatment: Chest x-ray was obtained since patient has blood streaked sputum. History is consistent with upper respiratory infection. Most likely patient obstructing a vessel with coughing. Treatment Plan: Albuterol MDI and stop smoking Disposition: Discharge to home Impression: Hemoptysis secondary to acute viral bronchitis This note was generated with [employer] dictation software. It may contain incorrect words, spelling, and punctuation that were not noted in review of the chart prior to signing ED Disposition - Plan for ED Patient: Disposition: Home or Assisted Living Chief Complaint: Cough Instructions: ED Upper Resp Infec No Abx Tx, ED Hemoptysis Prescriptions: Albuterol Inhaler [Ventolin Hfa] 2 puff INHALATION Q4H PRN PRN #1 inhaler PRN Reason: Shortness of breath or wheezin Referrals: Care Physician,No Primary [Primary Care Provider] - Additional Instructions: Your prescription was electronically transmitted to [facility] on [facility]. It is in your best interest to stop smoking.
--- NOTE | 2018-06-17 15:17 | ED.DCSUM_ITS ---
- ER Visit Summary Date of Service: 06/17/18 Chief Complaint: Coughing up blood History of Present Illness: The patient is a 28 M who is a smoker of 1/2 pack/day since age of 10 presents with runny nose, congestion cough that is blood streaked. He denies fever or chills. He denies leg pain, swelling disco loration. He denies history of PE or DVT and has no risk factors. He denies any visual, ocular auditory symptoms. He does complain of sore throat and slight horsed voice. He does report chest discomfort with coughing only. He denies any GI or symptoms. He does complain of myalgias. He also reports generalized weakness. Physical Examination: Vital signs noted and unremarkable. Patient arrived with pillow and blanket. Head is atraumatic normocephalic. Pupils are equal round reactive. Extraocular muscles are intact. TMs are pearly white with landmarks noted. Nares patent with clear drainage. Posterior pharynx without erythema or exudate. Uvula is midline. There is no dysphonia or dysphasia. Trachea is midline. There is no stridor with auscultation of the neck. Heart is regular without murmur, gallop or rub. S1 and S2 are normal. Lungs are clear to auscultation with good movement of air bilaterally. There is no asymmetry, swelling, discoloration, leg vein distention, palpable cords or tenderness along the distribution of the deep venous system. Test Results: Two-view chest x-ray reveals minimal chronic changes with no evidence of pneumothorax, infiltrate or any abnormality. Emergency Department Course and Treatment: Chest x-ray was obtained since patient has blood streaked sputum. History is consistent with upper respiratory infection. Most likely patient obstructing a vessel with coughing. Treatment Plan: Albuterol MDI and stop smoking Disposition: Discharge to home Impression: Hemoptysis secondary to acute viral bronchitis This note was generated with m[employer]ar dictation software. It may contain incorrect words, spelling, and punctuation that were not noted in review of the chart prior to signing ED Disposition - Plan for ED Patient: Disposition: Home or Assisted Living Chief Complaint: Cough Instructions: ED Upper Resp Infec No Abx Tx, ED Hemoptysis Prescriptions: Albuterol Inhaler [Ventolin Hfa] 2 puff INHALATION Q4H PRN PRN #1 inhaler PRN Reason: Shortness of breath or wheezin Referrals: Care Physician,No Primary [Primary Care Provider] - Additional Instructions: Your prescription was electronically transmitted to [facility] pharmacy on [facility]. It is in your best interest to stop smoking.
[2018-06-17 15:52] VITALS: BP 117/71; BP 117/76; PULSE 86; RESP 16; TEMP 37; O2SAT 96
== END 2018-06-17 16:01 | disposition home or self-care (01) ==
PROVIDERS: Emergency Provider Emergency Medicine
DX: J20.8 Acute bronchitis due to other specified organisms (principal); R04.2 Hemoptysis; F17.200 Nicotine dependence, unspecified, uncomplicated
CPT/HCPCS: 71046; 99282

== ENCOUNTER 2018-06-25 21:54 | Emergency (ER) | payer MEDICAID, SELFPAY ==
[2018-06-25 21:55] VITALS: BP 127/79; PULSE 67; RESP 15; TEMP 36.3; BMI 20.4
--- NOTE | 2018-06-25 22:05 | ED.VISSUMM ---
- ER Visit Summary Date of Service: 06/25/18 Chief Complaint: Abdominal pain, nausea, vomiting, diarrhea History of Present Illness: The patient is a 28 M who presents with the above symptoms. Started 2 days ago. He describes sharp pains in the epigastric region. It does not radiate. He states he has had over 12 bowel movements that are loose and watery. He has vomited a couple of times as well. Denies fevers. He denies any urinary symptoms. He has had a history of an appendectomy in the past. He took nothing for this at home. Physical Examination: Vital signs reviewed. HEENT exam unremarkable. Heart is regular rate and rhythm without murmurs. Lungs are clear to auscultation. Abdomen is soft with epigastric tenderness to palpation.. Extremities reveal no edema. Skin exam normal. Neurologic exam normal. Test Results: None performed Emergency Department Course and Treatment: Patient was given Bentyl and Zofran. He had no relief of this so he was given a GI cocktail. Patient exam is fairly benign. He has normal vital signs. This is likely a viral gastrointestinal illness. I do not feel he requires any imaging or testing. I will send him home with Phenergan and Bentyl. He will follow-up with his PCP Treatment Plan: [] Disposition: Discharge Impression: Nausea vomiting and diarrhea This note was generated with [employer] dictation software. It may contain incorrect words, spelling, and punctuation that were not noted in review of the chart prior to signing ED Disposition - Plan for ED Patient: Chief Complaint: Abd Pain Referrals: Care Physician,No Primary [Primary Care Provider] -
[2018-06-25] MEDS: Ondansetron ODT 4 MG Tablet 8 MG PO (22:10)
[2018-06-25] MEDS: Dicyclomine 10 MG Capsule 20 MG PO (22:22)
[2018-06-25 23:05] VITALS: BP 138/86; PULSE 87; RESP 16; O2SAT 100
[2018-06-25] MEDS: Mag Hydrox/Al Hydrox/Simeth 30 ML UDC PO (23:10)
== END 2018-06-25 23:11 | disposition home or self-care (01) ==
PROVIDERS: Emergency Provider Emergency Medicine
DX: R11.2 Nausea with vomiting, unspecified (principal); R19.7 Diarrhea, unspecified; R10.13 Epigastric pain; Z86.19 Personal history of other infectious and parasitic diseases; Z72.0 Tobacco use
CPT/HCPCS: 99283

== ENCOUNTER 2018-08-09 05:13 | Emergency (ER) | payer MEDICAID, SELFPAY ==
[2018-08-09 05:14] VITALS: BP 142/89; PULSE 82; RESP 15; TEMP 36.4; O2SAT 94
--- NOTE | 2018-08-09 05:31 | ED.DCSUM_ITS ---
- ER Visit Summary Date of Service: 08/09/18 Chief Complaint: [] Left lower dental pain History of Present Illness: The patient is a 28 M who was walking up the steps this morning and tripped and struck his face on the steps. He is having pain in 1 of his premolars as he chipped it. Comes in for further evaluation. Use ibuprofen at home Physical Examination: [] Vital signs reviewed General: Well-nourished well-developed Head: Normocephalic atraumatic Eyes: Pupils equal round and reactive to light extraocular movements intact ENT: TMs clear no hemotympanum no trauma Dental: Widespread dental decay. He has a Hi 2 fracture to the gumline of a decayed first premolar. Neck: Nontender full range of motion Cardiovascular: Regular rate rhythm no murmurs normal S1-S2 Respiratory: No distress clear to auscultation bilaterally chest nontender Abdomen: Soft nontender nondistended normal bowel sounds no masses Back: Nontender no CVA tenderness Extremities: Nontender active range of motion ?4 extremities no trauma Skin: Normal color no trauma Neuro alert oriented cranial nerves II through XII intact normal strength sensation reflexes Test Results: [] Emergency Department Course and Treatment: [] Patient given 2 [place] and It was used to cover the dental fracture. We will follow-up with dentistry Treatment Plan: [] Disposition: [] Impression: [] Premolar dental fracture This note was generated with [employer] dictation software. It may contain incorrect words, spelling, and punctuation that were not noted in review of the chart prior to signing ED Disposition - Plan for ED Patient: Referrals: Care Physician,No Primary [Primary Care Provider] -
--- NOTE | 2018-08-09 05:31 | ED.DEP ---
ED Disposition - Plan for ED Patient: Disposition: Home or Assisted Living Instructions: Dental Trauma Referrals: Care Physician,No Primary [Primary Care Provider] - Dentist,Your [STAFF PHYSICIAN] -
[2018-08-09] MEDS: HYDROcodone Bitartrate/Apap 5/325 Tablet PO (05:42)
[2018-08-09 05:44] VITALS: BP 142/89; PULSE 82; RESP 15; O2SAT 95
== END 2018-08-09 05:45 | disposition home or self-care (01) ==
PROVIDERS: Emergency Provider Emergency Medicine
DX: S02.5XXA Fracture of tooth (traumatic), initial encounter for closed fracture (principal); K02.9 Dental caries, unspecified; Z72.0 Tobacco use; W01.198A Fall on same level from slipping, tripping and stumbling with subsequent striking against other object, initial encounter; Y93.01 Activity, walking, marching and hiking; Y92.89 Other specified places as the place of occurrence of the external cause; Y99.8 Other external cause status
CPT/HCPCS: 99283

== ENCOUNTER 2018-09-21 15:59 | Emergency (ER) | payer SELFPAY ==
[2018-09-21 15:59] VITALS: BP 120/71; PULSE 63; RESP 18; TEMP 36.6; O2SAT 98
[2018-09-21] MEDS: Clindamycin HCl 150 MG Capsule 450 MG PO (16:22)
[2018-09-21] MEDS: HYDROcodone Bitartrate/Apap 5/325 Tablet PO (16:22)
--- NOTE | 2018-09-21 16:22 | ED.DCSUM_ITS ---
- ER Visit Summary Date of Service: 09/21/18 Chief Complaint: Toothache History of Present Illness: The patient is a 28 M with the gradual onset of a toothache over the past 3 days. The pain is in his left mandible. Patient has underlying decay and multiple fractures. He denies any swelling, fever, or ot her associated symptoms. Physical Examination: Vitals unremarkable. Facial inspection is unremarkable. Tooth #21 is fractured secondary to underlying decay. Tender to palpation. Gums unremarkable. No trismus. No tongue elevation. Airway intact. No lymphadenopathy. No meningeal signs. Test Results: None indicated Emergency Department Course and Treatment: Patient treated with [place] and clindamycin here. He was given a prescription for clindamycin and naproxen. Follow-up with dental. Treatment Plan: As above Disposition: Discharge Impression: 1. Odontalgia This note was generated with [employer] dictation software. It may contain incorrect words, spelling, and punctuation that were not noted in review of the chart prior to signing ED Disposition - Plan for ED Patient: Referrals: Care Physician,No Primary [Primary Care Provider] -
--- NOTE | 2018-09-21 16:22 | ED.DEP ---
ED Disposition - Plan for ED Patient: Instructions: ED Tooth Pain Prescriptions: Naproxen [Naprosyn] 500 mg PO BID PRN #20 tab Clindamycin [Cleocin] 300 mg PO 4X/DAY #80 cap Referrals: Gabby Anna [NON-STAFF] -
== END 2018-09-21 16:26 | disposition home or self-care (01) ==
PROVIDERS: Emergency Provider Emergency Medicine
DX: K08.89 Other specified disorders of teeth and supporting structures (principal); F12.90 Cannabis use, unspecified, uncomplicated; Z72.0 Tobacco use
CPT/HCPCS: 99283

== ENCOUNTER 2019-01-23 22:13 | Emergency (ER) | payer MEDICAID, SELFPAY ==
[2019-01-23 22:15] VITALS: BP 119/76; PULSE 94; RESP 16; TEMP 36.4; O2SAT 96; BMI 19.3
--- NOTE | 2019-01-23 22:26 | ED.VISSUMM ---
- ER Visit Summary Date of Service: 01/23/19 Chief Complaint: Sexually transmitted infection exposure History of Present Illness: The patient is a 28 M whose girlfriend was seen in the emergency department and tested positive for gonorrhea today. Patient denies any symptoms. No dysuria. No discharge. No fevers. Physical Examination: Afebrile vitals normal Moist mucous membranes Heart regular rate and rhythm Lungs clear Abdomen soft Alert Test Results: Not indicated Emergency Department Course and Treatment: Given that patient does have a confirmed sexual partner who tested positive for gonorrhea we will empirically treat. He will be treated with intramuscular Rocephin oral azithromycin and discharged. Treatment Plan: [] Disposition: Discharge Impression: Sexual transmitted infection This note was generated with [employer] dictation software. It may contain incorrect words, spelling, and punctuation that were not noted in review of the chart prior to signing ED Disposition - Plan for ED Patient: Referrals: Care Physician,No Primary [Primary Care Provider] -
--- NOTE | 2019-01-23 22:28 | ED.DEP ---
ED Disposition - Plan for ED Patient: Instructions: What Are Sexually Transmitted Diseases (STDs)? Referrals: Care Physician,No Primary [Primary Care Provider] -
[2019-01-23] MEDS: Azithromycin 250 MG Tablet 1000 MG PO (22:45)
[2019-01-23] MEDS: Ceftriaxone 500 MG Vial 250 MG IM (22:47)
== END 2019-01-23 23:05 | disposition home or self-care (01) ==
LOC: ED 22:35
PROVIDERS: Emergency Provider Emergency Medicine
DX: A64 Unspecified sexually transmitted disease (principal); Z86.19 Personal history of other infectious and parasitic diseases; Z72.0 Tobacco use
CPT/HCPCS: 96372; 99283

== ENCOUNTER 2020-03-13 10:38 | Emergency (ER) | payer MEDICAID, SELFPAY ==
[2019-12-11 14:17] VITALS: BMI 21.7
[2020-03-13 10:39] VITALS: BP 111/81; PULSE 74; RESP 16; TEMP 36.3; O2SAT 100; BMI 20.1
--- NOTE | 2020-03-13 11:06 | ED.DCSUM_ITS ---
History of Present Illness Chief Complaint: Flank Pain Informant: Patient Onset: Days Context: Gradual Onset Timing: Continuous Quality: Sharp Location: Lumbar Worsened by: improves with: Movement Relieved by: Nothing Associated Symptoms: Radiation to Left Leg Narrative: Patient is a 29-year-old male with history of hepatitis C presenting with atraumatic low back pain. Patient states he woke up 3 days ago with pain in his left lower back. It started when he woke up one morning. He states it radiates down his left leg. He notes the pain is worse with movement. He is not tried to take anything at home for the pain prior to arrival. He denies any urinary symptoms. Feels that the pain radiates down his left leg. He denies any radiation to his testicles. No other complaints at this time. Prior similar symptoms: No Past Medical History - Allergies and Home Meds Allergies/Adverse Reactions: Allergies codeine Allergy (Verified 03/13/20 10:40) Anaphylaxis Penicillins [PCN] Allergy (Verified 03/13/20 10:40) Hives tramadol Allergy (Verified 03/13/20 10:40) Hives Primary Care Physician: Care Physician,No Primary [Primary Care Provider] - Past Medical History: - - Hepatitis C Surgical History: - - Appendectomy, left hand/surgery. Smoking Status: Current every day smoker - Family History Maternal Family History: Reports: Diabetes Paternal Family History: Reports: Diabetes Review of Systems General: Denies: Chills, Fever, Sweats Eyes: Denies: Visual changes - bilaterally, Diplopia ENT: Denies: Rhinorrhea, Sore throat Cardiovascular: Denies: Chest pain, Palpitations Respiratory: Denies: Dyspnea, Cough, Dyspnea on exertion Gastrointestinal: Denies: Abdominal pain, Nausea, Vomiting, Diarrhea, Melena, Hematochezia Genitourinary: Denies: Dysuria, Hematuria, Frequency Musculoskeletal: Reports: Back pain. Denies: Extremity Pain Skin: Denies: Rash, Wounds Neurological: Denies: Headache, Weakness, Numbness Physical Exam Vital Signs/Narrative: Vital Signs Temp Pulse Resp BP Pulse Ox 03/13/20 10:39 97.4 F L 74 16 111/81 H 100 Inital Vital Signs reviewed: Yes General: Well nourished, Well developed Head: Normocephalic, Atraumatic Eyes: Perrl, EOMI ENT: Moist mucous membranes, No rhinorrhea Neck: Supple, Nontender Cardiovascular: Regular rate, Regular rhythm, No murmurs Respiratory: No distress, CTA bilaterally, Chest nontender Abdomen: Soft, Nontender, Nondistended, Normal bowel sounds Back: Normal Inspection, Paraspinal Tenderness - Left lumbar, Negative SLR - Right, Positive SLR - Left Extremeties: No edema, Tenderness - Mild tenderness palpation of the left hip, n o reproducible pain with range of motion, - - No deformity. Skin: Normal color, No rash Neuro: Alert, Oriented, Normal Strength, Normal Sensation, Normal DTR, Normal Gait Psychological: Normal affect Diagnostic/Tx/Re-eval Clinical Impression(s) from Imaging Studies Hip/Pelvis X-Ray 03/13/20 11:30 IMPRESSION: Normal x-ray examination of the pelvis and hip. Electronically Signed: Evan Hendrix, at 12:12 EDT , Service support , - Medical Decision Making Patient evaluated for atraumatic low back pain that radiates down his leg. He is neuro-vascularly intact. He has equal peripheral pulses. Suspect the pain is muscle skeletal. He does not have any CVA tenderness. The pain is in the left lower/lateral lumbar region. He does not have pain with range of motion of the hips or the lower suspicion for bursitis. This could be sciatica as well. Patient be treated with Flexeril and Motrin and instructed to use heat. Patient is counseled on signs and symptoms requiring return to the emergency room. Patient verbalizes agreement and understand this plan. Patient discharged home in stable and improved condition. ED Disposition - Plan for ED Patient: Disposition: Home or Assisted Living Diagnosis: Low back pain Instructions: ED Back Pain Acute or Chronic Prescriptions: cycloBENZAPRine HCl [Flexeril] 10 mg PO TID PRN #20 tab PRN Reason: Muscle Spasm Transmission Status: Pending to [facility] #30 Ibuprofen [Motrin] 600 mg PO Q6H PRN PRN #20 tab PRN Reason: Pain Score 1-10/10 Transmission Status: Pending to [facility] #30 Referrals: Miguel A Gorman MD [STAFF PHYSICIAN] -
[2020-03-13] MEDS: cycloBENZAPRine HCl 10 MG Tablet PO (11:17)
[2020-03-13] MEDS: Ketorolac 30 MG/ML Syringe IM (11:17)
--- NOTE | 2020-03-13 11:30 | RAD_ITS ---
STUDY: X-RAY - PELVIS AND LEFT HIP REASON FOR EXAM: Male, 29 years old. LT FLANK/HIP PAIN FOR 3 DAYS. NO OTHER SYMPTOMS TECHNIQUE: 3 views of the pelvis and hip. COMPARISON: None. FINDINGS: There is a non-specific bowel gas pattern. Normal visualized soft tissue structures. Normal bilateral iliac wings, sacroiliac joints and visualized sacrum. Normal bilateral superior and inferior pubic rami. Normal pubic symphysis. Normal bilateral ischial tuberosities. Normal visualized femoral head. Normal acetabulum. Normal hip joint. RAD/HIP, UNI W/ Pelvis 2-3 Views IMPRESSION: Normal x-ray examination of the pelvis and hip. Electronically Signed: Evan Hendrix, at 12:12 EDT , Service support ,
[2020-03-13 12:51] VITALS: BP 110/83; PULSE 79; RESP 14; O2SAT 97
== END 2020-03-13 12:52 | disposition home or self-care (01) ==
PROVIDERS: Emergency Provider Emergency Medicine
DX: M54.5 Low back pain (principal); F17.200 Nicotine dependence, unspecified, uncomplicated
CPT/HCPCS: 73502; 96372; 99282

== ENCOUNTER 2020-04-27 23:37 | Emergency (ER) | payer MEDICAID, SELFPAY ==
[2020-04-27 23:38] VITALS: BP 143/87; PULSE 99; RESP 16; TEMP 36.6; O2SAT 100; BMI 20.7
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
[2020-04-28 00:03] VITALS: BP 108/85; PULSE 67; RESP 22; O2SAT 100
[2020-04-28 00:14] LABS: Absolute Lymphocyte Count 2.97 X10^3/uL (0.83-4.51); Absolute Neutrophil Count 3.2 X10^3/uL (2.0-7.7); Basophil# 0.07 X10^3/uL; Eosinophil# 0.12 X10^3/uL; Eosinophils% 1.8 % (0-5); Hematocrit 45.6 % (40-54); Hemoglobin 15.1 g/dL (13.0-16.5); Lymphocyte # 2.97 X10^3/ul (4.0); Lymphocyte % 43.4 % (19-41); Mean Corp Hgb Conc 33.1 g/dL (32-36); Mean Corpuscular Hgb 29.7 pg (27.0-32.0); Mean Corpuscular Volume 89.6 fL (80-94); Monocyte# 0.52 X10^3/uL; Monocyte% 7.6 % (0-10); NRBC Flagged by Analyzer 0 % (0-5); Neutrophil # 3.16 X10^3/uL (2.7-7.7); Neutrophil % 46.1 % (47-70); Platelet Count 322 K/mm3 (150-450); RBC Distribution Width CV 11.9 % (11.6-14.6); RBC Distribution Width SD 38.5 fl (35.1-43.9); Red Blood Count 5.09 M/mm3 (4.6-6.2); White Blood Count 6.9 K/mm3 (4.4-11.0)
[2020-04-28 00:27] LABS: Anion Gap 5 (5-15); BUN 13 mg/dL (7-18); BUN/Creat Ratio 13.9 RATIO (10-20); Calcium,Total 9.2 mg/dL (8.5-10.1); Chloride 105 mmol/L (98-107); Creatinine, Serum 0.93 mg/dL (0.70-1.30); EST Glomerular Filtration Rate 100 mL/min (>60); Est Glom Filt Rate - Afr Amer 121 mL/min (>60); Estimated Creatinine Clearance 125.52 ml/min; Glucose 93 mg/dL (74-106); Potassium 3.4 mmol/L (3.5-5.1); Prothrombin Time (Protime)PT. 12.5 SECONDS (11.7-14.9); Sodium Level 141 mmol/L (136-145)
[2020-04-28] MEDS: Diphth,Pertuss(Acell),Tet Vac 0.5 ML Vial IM (00:36)
[2020-04-28 02:14] VITALS: BP 124/102; PULSE 66; RESP 18; O2SAT 98
== END 2020-04-28 02:18 | disposition home or self-care (01) ==
PROVIDERS: Emergency Provider Emergency Medicine
DX: S01.01XA Laceration without foreign body of scalp, initial encounter (principal); S06.9X9A Unspecified intracranial injury with loss of consciousness of unspecified duration, initial encounter; S13.4XXA Sprain of ligaments of cervical spine, initial encounter; Y00.XXXA Assault by blunt object, initial encounter; Y93.9 Activity, unspecified; Y92.9 Unspecified place or not applicable; Z86.19 Personal history of other infectious and parasitic diseases; F17.200 Nicotine dependence, unspecified, uncomplicated
CPT/HCPCS: 12002; 70450; 72125; 80048; 85025; 85610; 90715; 99283; A4216

== ENCOUNTER 2022-03-01 10:36 | Emergency (ER) | payer MEDICAID, SELFPAY ==
[2022-03-01 10:37] VITALS: BP 144/91; PULSE 65; RESP 18; TEMP 36.1; O2SAT 99; BMI 22.6
--- NOTE | 2022-03-01 10:45 | ED.VIS.DENTA ---
HPI History of Present Illness Chief Complaint: Dental Informant: patient Onset/Context/Timing Onset: Yesterday Current Severity: Moderate Maximum Severity: Moderate Narrative Narrative: Patient presents secondary to dental pain. He has a broken tooth that he is not sure how long its been there. He states he developed pain last evening and has had difficulty sleeping. He did take Tylenol prior to arrival. [facility] Medical History Hepatitis C Home Medications clindamycin HCl 150 mg capsule 300 mg PO 4X/DAY #80 caps 03/01/22 [Rx Last Taken Unknown] naproxen 500 mg tablet (Naprosyn) 500 mg PO BID PRN pain #20 tabs 03/01/22 [Rx Last Taken Unknown] Allergy/AdvReac Type Severity Reaction Status Date / Time codeine Allergy Anaphylaxis Verified 03/01/22 10:36 Penicillins [PCN] Allergy Hives Verified 03/01/22 10:36 tramadol Allergy Hives Verified 03/01/22 10:36 Social History Smoking Status: Unknown if ever smoked alcohol intake: never ROS ROS ED Constitutional Constitutional ED: Denies chills or fever(s) Eyes Eyes: Denies change in vision or discharge from eye(s) ENT ENT ED: Reports other Details: Dental pain ; Denies discharge from eye(s), rhinorrhea or sore throat Cardiovascular Cardiovascular: Denies chest pain or palpitations Respiratory/Chest Respiratory/Chest: Denies cough or dyspnea Gastrointestinal Gastrointestinal: Denies abdominal pain, nausea or vomiting Musculoskeletal Musculoskeletal: Denies back pain or extremity pain Integumentary Denies Abrasions or rash Neurologic Neurologic: Denies headache(s) or weakness Allergic/Immunologic Allergic/Immunologic ED: Denies lip swelling or urticaria EXAM Physical Exam Const Vital Signs: 03/01/22 10:37 Temperature 96.9 F L Temperature Source Temporal Pulse Rate 65 Respiratory Rate 18 Blood Pressure 144/91 H Blood Pressure Mean 108 Pulse Ox 99 Oxygen Delivery Method Room Air Positive well nourished and well developed General Appearance ED: well developed HEENT Reports normocephalic and head/scalp atraumatic HEENT Narrative: No facial edema or erythema noted. Right maxillary lateral incisor is broken. Minimal surrounding gum edema. Posterior pharynx exam is normal. Eyes PERRL and EOMs intact bilaterally Neck supple Chest Wall inspection of chest normal and palpation of chest normal Resp normal respiratory effort and clear to auscultation bilaterally Cardio regular rate, regular rhythm and no murmurs GI Palpation: soft Extremity normal to inspection Neuro oriented x3 and no sensory deficits noted Sensorium / Orientation: alert Motor Exam: strength 5/5 throughout Psych mental status grossly normal Skin no rashes or lesions noted MDM MDM MDM Narrative Medical decision making narrative: Patient does have an allergy to penicillin. He will be treat with a course of clindamycin as well as naproxen. Dental referral list has been provided. Discharge Plan Triage Chief Complaint: Dental ED Provider: Asuncion Oneal Dx/Rx/DC Orders Clinical Impression: Pain, dental Instructions: ED Dental Pain Prescriptions: New clindamycin HCl 150 mg capsule 300 mg PO 4X/DAY Qty: 80 0RF naproxen [Naprosyn] 500 mg tablet 500 mg PO BID PRN (Reason: pain) Qty: 20 0RF Primary Care Provider: Care Physician,No Primary Referrals: Care Physician,No Primary [Primary Care Provider] - Activity Restrictions/Additional Instructions: Dental referral list provided. Please follow-up with a dentist as soon as possible. Complete the full course of antibiotics as prescribed. Disposition Disposition: Home, Self Care
[2022-03-01] MEDS: Naproxen 500 MG Tablet PO (10:50)
[2022-03-01] MEDS: Clindamycin HCl 150 MG Capsule 300 MG PO (10:50)
== END 2022-03-01 11:05 | disposition home or self-care (01) ==
LOC: ED 11:01
PROVIDERS: Emergency Provider Emergency Medicine; Visit Provider Emergency Medicine
DX: S02.5XXA Fracture of tooth (traumatic), initial encounter for closed fracture (principal); K08.89 Other specified disorders of teeth and supporting structures; X58.XXXA Exposure to other specified factors, initial encounter
CPT/HCPCS: 99283

== ENCOUNTER 2022-03-02 11:27 | Emergency (ER) | payer MEDICAID, SELFPAY ==
[2022-03-02 11:29] VITALS: BP 120/78; PULSE 54; RESP 16; TEMP 36.5; O2SAT 98; BMI 17.7
--- NOTE | 2022-03-02 11:37 | EX.ED.DYSGE1 ---
HPI <NICHO Chaves - Last Filed: 03/02/22 11:45> History of Present Illness Chief Complaint: Abscess Narrative Narrative: Patient presents for evaluation of a dental infection. His right upper incisor has been broken for a long time and it started to become painful yesterday so he was seen here and started on clindamycin. He has been on it for 24 hours but noticed increased right cheek swelling today which prompted him to come in. No difficulty swallowing or breathing. No fever or chills. PFSH <NICHO Chaves - Last Filed: 03/02/22 11:45> [facility] Medical History Hepatitis C Home Medications clindamycin HCl 150 mg capsule 300 mg PO 4X/DAY #80 caps 03/01/22 [Rx Last Taken Unknown] naproxen 500 mg tablet (Naprosyn) 500 mg PO BID PRN pain #20 tabs 03/01/22 [Rx Last Taken Unknown] hydrocodone-acetaminophen 5-325mg 5mg-325mg 1 tab PO Q6H PRN PRN Pain 3 days #10 TABLETS 03/02/22 [Rx Last Taken Unknown] Allergy/AdvReac Type Severity Reaction Status Date / Time codeine Allergy Anaphylaxis Verified 03/02/22 11:30 Penicillins [PCN] Allergy Hives Verified 03/02/22 11:30 tramadol Allergy Hives Verified 03/02/22 11:30 Social History Smoking Status: Current every day smoker tobacco type: cigarettes alcohol intake: never ROS <NICHO Chaves - Last Filed: 03/02/22 11:45> ROS ED ROS Narrative Constitutional: Negative for fever, chills, malaise. Eyes: Negative for visual change. ENT: Positive for dental pain. CVS: Negative for palpitations, chest pain. Respiratory: Negative for shortness of breath, cough. GI: Negative for abdominal pain, nausea, vomiting. : Negative for dysuria. Neuro: Negative for headache. Skin: Negative for rash, abscess, or wound. Musc: Negative for joint pain, swelling, trauma. Heme: Negative for easy bruising, bleeding, lymphadenopathy. EXAM <NICHO Chaves - Last Filed: 03/02/22 11:45> Physical Exam Narrative Exam Narrative: CONST: Patient sitting in no acute distress. EYES: Normal inspection. ENT: Right cheek swelling. Diffuse dental caries, right maxillary lateral incisor is partially missing and he has tenderness over the gumline but no periapical abscess. No trismus or tongue elevation, sublingual space is soft, airway patent with midline uvula. NECK: Normal inspection. Trachea midline, no submental or submandibular swelling. RESP: No respiratory distress, CTAB. CVS: Regular rate and rhythm, no murmur, no gallop. SKIN: Color normal, no rash, warm, dry, intact. EXTREMITIES: Normal appearance, no pedal edema. NEURO: Oriented x4. PSYCH: Normal affect. Const Vital Signs: 03/02/22 11:29 Temperature 97.7 F L Temperature Source Temporal Pulse Rate 54 L Respiratory Rate 16 Blood Pressure 120/78 Blood Pressure Mean 92 Pulse Ox 98 Oxygen Delivery Method Room Air <Dr. Chintan Mackey DO - Last Filed: 03/02/22 15:53> Physical Exam Const Vital Signs: 03/02/22 11:29 Temperature 97.7 F L Temperature Source Temporal Pulse Rate 54 L Respiratory Rate 16 Blood Pressure 120/78 Blood Pressure Mean 92 Pulse Ox 98 Oxygen Delivery Method Room Air MDM <NICHO Chaves - Last Filed: 03/02/22 11:45> [facility] Narrative Medical decision making narrative: Patient was started on clindamycin 24 hours ago for dental infection and has increased right cheek swelling. Right maxillary lateral incisor is partially avulsed which is chronic. There is no periapical abscess that needs drained. No submental swelling or signs of deep space infection. Airway is patent. He was counseled to continue clindamycin (penicillin allergic) and was given a short prescription of Vidalia and a dental referral sheet. He was discharged in stable condition. <Dr. Chintan Mackey DO - Last Filed: 03/02/22 15:53> [facility] Narrative Medical decision making narrative: This patient was seen with a PA/COMPRESS TRUCKER Individually assessed they patient including history and physical. I have reviewed everything on the chart that is available and agree with the documentation provided by the PA/COMPRESS TRUCKER including discussion about the assessment, treatment plan, discussion, and return precautions. Patient seen and examined. He is swelling to the right cheek he has a known chronic evulsion fracture to the rightLateral incisor. Patient has been on clindamycin for less than 24 hours and he notes that it seems to swell more with ice. I recommended that he continue his clindamycin. He was given a dental referral. He was given Vidalia for pain. Patient was started on clindamycin 24 hours ago for dental infection and has increased right cheek swelling. Right maxillary lateral incisor is partially avulsed which is chronic. There is no periapical abscess that needs drained. No submental swelling or signs of deep space infection. Airway is patent. He was counseled to continue clindamycin (penicillin allergic) and was given a short prescription of Vidalia and a dental referral sheet. He was discharged in stable condition. Discharge Plan Triage Chief Complaint: Abscess ED Midlevel Provider: Sis Deleon ED Provider: Chintan Mackey Dx/Rx/DC Orders Clinical Impression: Dental abscess Instructions: Dental Abscess Prescriptions: New hydrocodone-acetaminophen 5-325 mg tablet 1 tab PO Q6H PRN PRN (Reason: Pain) 3 Days Qty: 10 0RF No Action clindamycin HCl 150 mg capsule 300 mg PO 4X/DAY Qty: 80 0RF naproxen [Naprosyn] 500 mg tablet 500 mg PO BID PRN (Reason: pain) Qty: 20 0RF Primary Care Provider: Care Physician,No Primary Referrals: Care Physician,No Primary [Primary Care Provider] - Activity Restrictions/Additional Instructions: Continue clindamycin and call a dentist next week Disposition Disposition: Home, Self Care Discharge Date/Time: 03/02/22 12:00
== END 2022-03-02 12:00 | disposition home or self-care (01) ==
LOC: ED 11:51
PROVIDERS: Emergency Provider Student in an Organized Health Care Education/Training Program; Visit Provider Student in an Organized Health Care Education/Training Program
DX: K04.7 Periapical abscess without sinus (principal); F17.210 Nicotine dependence, cigarettes, uncomplicated; K02.9 Dental caries, unspecified
CPT/HCPCS: 99282